=== PATIENT | male | born 1960 | race Caucasian/White ===

== ENCOUNTER 2023-04-08 12:02 | Outpatient (CLI) | payer OTHER, SELFPAY ==
--- NOTE | 2023-04-08 12:06 | USCV_ITS ---
Luigi Benz Age: 63 Gender: M : 1960 Exam Date: 04/08/2023 12:15 Ordering Phys: Uday Llamas Technologist: CT Exam Location: [facility] [place]_ Indication: COPD BP: 137 / 85 HR: 62 Rhythm: Sinus Technical Quality: Technically difficult study MEASUREMENTS (Male / Female) Normal Values 2D ECHO LV Chamber Size 5.8 cm RV Chamber Size 4.2 cm LVOT Diameter 2.5 cm LV Ejection Fraction MOD 2C 65.0 % LV Ejection Fraction 2C AL 65.4 % LA Diameter 4.3 cm LA Width 4.1 cm LA Height 5.3 cm RA Width 3.6 cm RA Height 4.2 cm Aorta at Sinotubular Diameter 2.2 cm IVC Diameter 2.0 cm M-MODE Aortic Annulus Diameter 3.0 cm LA Ao Ratio MM 1.6 MV E Point Septal Separation 1.0 cm DOPPLER AV Peak Velocity 187.0 cm/s LVOT Peak Velocity 104.0 cm/s AV Area Cont Eq vti 3.1 cm squared AV Area Cont Eq pk 2.7 cm squared MV Peak Velocity 105.0 cm/s MV E' Velocity 11.0 cm/s TR Peak Velocity 158.0 cm/s TR Peak Gradient 10.0 mmHg PV Peak Velocity 111.0 cm/s FINDINGS Left Ventricle The study is poor in quality. The only view reasonable is the apical view. The ventricle is normal in size and function. Ejection fraction is about 60%. Grade 2 diastolic dysfunction. Right Ventricle Normal right ventricular size and systolic function. Right Atrium The right atrium is normal in size. Left Atrium The left atrium is normal in size. Mitral Valve Structurally normal mitral valve without significant stenosis or prolapse. There is no mitral regurgitation. Aortic Valve Structurally normal aortic valve without significant sclerosis or stenosis. There is no aortic regurgitation. Tricuspid Valve Tricuspid valve not well visualized. Pulmonic Valve Pulmonic valve not well visualized. Pericardium Normal pericardium without effusion. Aorta Normal ascending aorta dimension. IVC The inferior vena cava appears normal. CONCLUSIONS The study is poor in quality. The only view reasonable is the apical view. The ventricle is normal in size and function. Ejection fraction is about 60%. Grade 2 diastolic dysfunction. There are no prior echocardiogram studies to compare. Dr. Trevor Alvarado MD (Electronically Signed) Final Date: 08 April 2023 15:52 S
== END 2023-04-08 12:03 | disposition home or self-care (01) ==
LOC: RAD 12:02
PROVIDERS: Family Provider Family Medicine; PCP Nurse Practitioner Family; Visit Provider Nurse Practitioner Family
DX: I11.0 Hypertensive heart disease with heart failure (principal); I50.9 Heart failure, unspecified; I25.118 Atherosclerotic heart disease of native coronary artery with other forms of angina pectoris
CPT/HCPCS: 93306

== ENCOUNTER 2024-10-08 11:44 | Inpatient (IN) | payer MEDICAID, SELFPAY ==
[2024-10-08] VITALS (92 sets, daily range): BP systolic 77–133; BP diastolic 51–92; PULSE 72–124; RESP 13–16; TEMP 36.3–36.4; O2SAT 93–100; BMI 51.6; BMI 37.0
--- NOTE | 2024-10-08 11:47 | XR_ITS ---
WS: [id number] Exam: XR chest 1V portable [id number] Date/Time of Exam: 10/08/2024 11:54 AM Reason For Exam: Resp fail Comparison 05/17/2014. The heart is enlarged with pulmonary vascular engorgement. Prominent RIGHT basal pleural effusion with compressive atelectasis of the middle and lower lobes of the RIGHT lung. ET tube ends about 6 cm above the pao in good position. An enteric tube extends below the diaphragm but the tip is not visible. Bony structures are intact. Distention of the SVC. XR/XR chest 1V portable [id number] IMPRESSION: 1. Cardiac enlargement and findings that would suggest congestive heart failure with large right-sided pleural effusion. 2. ET tube in satisfactory location. Enteric tube extending below the level of the diaphragm.
--- NOTE | 2024-10-08 11:47 | ECG_ITS ---
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 Measurements Intervals [place] Rate: 109 P: 51 [place]: 116 QRS: 53 QRSD: 123 T: 88 QT: 373 QTc: 504 Interpretive Statements SINUS TACHYCARDIA POSSIBLE RIGHT VENTRICULAR CONDUCTION DELAY [ No previous ECG available for comparison Electronically Signed On 10-09-2024 11:59:37 CDT by Hubert Michaud M.D. [email or web address]
--- NOTE | 2024-10-08 12:04 | PC.PHAR ---
CALLED PHARMACY TO VERIFY MEDS FOR PATIENT SINCE HES INTUBATED
--- NOTE | 2024-10-08 12:04 | W.ED.SOB ---
HPI - SOB/Dyspnea General: Chief Complaint: Shortness of Breath/Dyspnea Stated Complaint: RESP. DISTRESS Time Seen by Provider: 10/08/24 11:47 History of Present Illness: HPI Narrative: 64-year-old male brought to the emergency department by EMS intubated with respiratory failure. Patient called 911 stating that he was having trouble breathing. When EMS arrived on the scene he was unresponsive and they intubated him. His initially O2 saturation was 74% and his respiratory rate was between 30 and 40 breaths/min. He was intubated in the field without complication. Upon arrival in the emergency department the patient was sedated and intubated. No other significant history was able to be obtained. Related Data Home Medications ?Medication ?Instructions ?Recorded ?Confirmed albuterol sulfate 90 mcg/actuation 2 puff inhalation Q6H 10/08/24 10/08/24 aerosol inhaler carvedilol 6.25 mg tablet 6.25 mg PO BIDWM 10/08/24 10/08/24 ipratropium 0.5 mg-albuterol 3 mg 3 ml inhalation QID PRN Shortness 10/08/24 10/08/24 (2.5 mg base)/3 mL nebulization Of Breath soln lisinopril 20 mg tablet 20 mg PO DAILY 10/08/24 10/08/24 mometasone-formoterol HFA 200 2 puff inhalation BID 10/08/24 10/08/24 mcg-5 mcg/actuation aerosol inhaler (Dulera) Review of Systems General: Reports: ROS unobtainable due to endotracheal tube Physical Exam Const: COMMON NORMALS: no acute distress HENMT: COMMON NORMALS: normocephalic HEAD & SCALP: normocephalic Eye: COMMON NORMALS: conjunctivae normal and no scleral icterus CONJUNCTIVA: Yes conjunctivae normal Resp: AUSCULTATION: no crackles, no rales, no rhonchi, no wheezes and breath sounds absent (bases) bilateral Cardio: COMMON NORMALS: regular rhythm, No gallops present (Cardio) and No murmurs present (Cardio) RATE: tachycardic RHYTHM: regular rhythm GI: COMMON NORMALS: Soft to palpation and non-tender PALPATION: Yes Soft to palpation Extremity: GENERAL: Yes edema (+3 to the hip) Skin: COMMON NORMALS: no rashes or lesions noted GENERAL SKIN EXAM: no rashes or lesions noted Course Vital Signs: Vital signs: Vital Signs Temperature 97.6 F 10/08/24 11:46 Pulse Rate 83 10/08/24 16:10 Respiratory Rate 16 10/08/24 13:52 Blood Pressure 89/64 10/08/24 16:10 Pulse Oximetry 98 10/08/24 16:10 Oxygen Delivery Me thod Mechanical Ventil ation 10/08/24 13:40 Fraction of Inspir ed Oxygen 75 10/08/24 13:52 MDM - SOB/Dyspnea Medical Decision Making 64-year-old male presented via EMS. Patient was found unconscious at the scene and was intubated in the field. His initial O2 saturation was in the 70s and his respiratory rate was very rapid. Upon arrival in the emergency department he was intubated and sedated. Patient was tachycardic. Initial EKG was sinus tachycardia without signs of STEMI. Significant peripheral edema with absent lung sounds. Chest x-ray showed an effusion in the right lung. CTA chest did not show pulmonary embolism but did show a large right pleural effusion and a very small left pleural effusion. Of note there was liver cirrhosis noted on CT. 2-hour Trope had a delta of 80. proBNP was 440. ABG demonstrated uncompensated respiratory acidosis. Additional history was gathered from the patient's son. He has a past medical history of coronary artery disease, CHF, and lung disease. Risks and benefits were discussed with the patient's family about admission to the ICU here and they were in agreement with this plan. Dr. Avery excepted the patient for admission with a cardiology consult. Dr. Michaud was also willing to consult on this patient for cardiology. He received a total of 80 mg of Lasix here in the emergency department as well as sedation medication in order to keep him comfortable while intubated. Differential Diagnosis Likely acute exacerbation of chronic obstructive airways disease, congestive heart failure, community acquired pneumonia, asthma with exacerbation and pulmonary embolism Lab Data 10/08/24 11:57 10/08/24 13:10 Labs/Radiology: Radiology Impressions Chest X-Ray 10/08/24 11:47 IMPRESSION: 1. Cardiac enlargement and findings that would suggest congestive heart failure with large right-sided pleural effusion. 2. ET tube in satisfactory location. Enteric tube extending below the level of the diaphragm. Chest/Abdomen/Pelvis CT 10/08/24 13:57 IMPRESSION: 1. No pulmonary embolism. 2. Large RIGHT pleural effusion with compressive atelectasis of the RIGHT lung. 3. LEFT basilar atelectasis with a very small effusion. 4. Cirrhotic liver. 5. Portosystemic collateral pathways are dilated. 6. Small amount of ascites. 7. No renal obstruction. 8. No GI tract obstruction. 9. Large amount of subcutaneous edema. Laboratory Results WBC 8.05 10^3/uL (3.29-11.43) 10/08/24 11:57 RBC 3.64 10^6/uL (3.85-5.65) L 10/08/24 11:57 Hgb 12.20 g/dL (11.27-16.99) 10/08/24 11:57 Hct 39.0 % (37-53) 10/08/24 11:57 MCV 107.1 fl (82-101) H 10/08/24 11:57 MCH 33.5 pg (27-33) H 10/08/24 11:57 MCHC 31.3 g/dL (30-55) 10/08/24 11:57 RDW 14.0 % (12.1-15.1) 10/08/24 11:57 Plt Count 247 10^3/cmm (157-399) 10/08/24 11:57 MPV 10.2 fL (7.4-10.4) 10/08/24 11:57 Neut % (Auto) 66.2 % 10/08/24 11:57 Lymph % (Auto) 24.2 % 10/08/24 11:57 [place] % (Auto) 8.1 % 10/08/24 11:57 Eos % (Auto) 0.2 % 10/08/24 11:57 Baso % (Auto) 0.4 % 10/08/24 11:57 Neut # (Auto) 5.33 10^3/uL (1.8-7.7) 10/08/24 11:57 Lymph # (Auto) 2.0 10^3/uL (0.8-4.8) 10/08/24 11:57 [place] # (Auto) 0.7 10^3/uL (0.2-0.9) 10/08/24 11:57 Eos # (Auto) 0.0 10^3/uL (0.0-0.8) 10/08/24 11:57 Baso # (Auto) 0.0 10^3/uL (0.0-0.1) 10/08/24 11:57 Nucleated RBC % (auto) 0 % 10/08/24 11:57 Nucleated RBCs # 0.0 /100WBC 10/08/24 11:57 Specimen Type Arterial 10/08/24 13:25 Sample Site Brachial, right 10/08/24 13:25 ABG pH 7.41 (7.35-7.45) 10/08/24 13:25 ABG pCO2 51.0 mmHg (35-45) H 10/08/24 13:25 ABG pO2 73.3 mmHg (80.0-100.0) L 10/08/24 13:25 ABG PO2/FiO2 Ratio 104 10/08/24 13:25 ABG HCO3 32.4 mmol/L (22-26) H 10/08/24 13:25 ABG O2 Saturation 96.6 10/08/24 13:25 ABG Base Excess 6.6 mmol/L (-2.0-2.0) H 10/08/24 13:25 Nikko Test N/a 10/08/24 13:25 A-a O2 Gradient 46.4 mmHg (5-10) H 10/08/24 13:25 Hematocrit 37.1 % (42-52) L 10/08/24 13:25 Hgb O2 Saturation 94.7 % (95-100) L 10/08/24 13:25 Carboxyhemoglobin 1.4 %THgb (0.4-20.1) 10/08/24 13:25 Methemoglobin 0.5 % (0.4-1.5) 10/08/24 13:25 Total Hemoglobin 12.1 g/dL (14-18) L 10/08/24 13:25 Sodium 139.0 mmol/L (131-143) 10/08/24 13:25 Potassium 3.8 mmol/L (3.5-5.0) 10/08/24 13:25 Glucose 132.0 mg/dL (70-115) H 10/08/24 13:25 Ionized Calcium 1.3 mmol/L (1.1-1.4) 10/08/24 13:25 O2 Delivery Device Vent 10/08/24 13:25 FiO2 70.0 % 10/08/24 13:25 Tidal Volume 0.50 10/08/24 13:25 PEEP 5.0 cmH20 10/08/24 13:25 Propellant Charge Loader ID Dora 10/08/24 13:25 Sodium 137 mmol/L (136-145) 10/08/24 13:10 Potassium 4.4 mmol/L (3.5-5.1) 10/08/24 13:10 Chloride 102 mmol/L (98-107) 10/08/24 13:10 Carbon Dioxide 31 mmol/L (22-29) H 10/08/24 13:10 Anion Gap 8.4 (5-19) 10/08/24 13:10 BUN 10 mg/dL (8-23) 10/08/24 13:10 Creatinine 0.4 mg/dL (0.7-1.2) L 10/08/24 13:10 GFR Calculation 216.6 mL/min (90-130) H 10/08/24 13:10 Glucose 141 mg/dL (65-115) H 10/08/24 13:10 Calculated Osmolality 285 mOsm/kg (285-295) 10/08/24 13:10 Lactic Acid 1.7 mmol/L (0.5-2.2) 10/08/24 11:57 Calcium 9.1 mg/dL (8.5-10.5) 10/08/24 13:10 Total Bilirubin 1.8 mg/dL (0.15-1.2) H 10/08/24 13:10 AST 47 U/L (0-40) H 10/08/24 13:10 ALT 30 U/L (0-41) 10/08/24 13:10 Alkaline Phosphatase 93 U/L (40-130) 10/08/24 13:10 Troponin T Baseline 36 ng/L (0-15) H 10/08/24 11:57 Troponin T 120 Minute 116.6 ng/L (0-15) H 10/08/24 13:26 Delta Troponin T 80.6 ABS# (0-10) H* 10/08/24 13:26 NT-Pro-B Natriuret Pep 440 pg/mL (0-125) H 10/08/24 13:10 Total Protein 6.9 g/dL (6.6-8.7) 10/08/24 13:10 Albumin 2.9 g/dL (3.5-5.2) L 10/08/24 13:10 Globulin 4.0 g/dL (1.3-4.6) 10/08/24 13:10 Urine Color Yellow (Yellow) 10/08/24 12:05 Urine Appearance Cloudy (CLEAR) A 10/08/24 12:05 Urine pH 5.5 (5-7) 10/08/24 12:05 Ur Specific [place] 1.022 (1.005-1.030) 10/08/24 12:05 Urine Protein 3+ (Negative) A 10/08/24 12:05 Urine Glucose (UA) Trace (Normal) H 10/08/24 12:05 Urine Ketones Negative (Negative) 10/08/24 12:05 Urine Blood 2+ (Negative) A 10/08/24 12:05 Urine Nitrate Negative (Negative) 10/08/24 12:05 Urine Bilirubin Negative (Negative) 10/08/24 12:05 Urine Urobilinogen 1.0 mg/dL (Negative) 10/08/24 12:05 Ur Leukocyte Esterase Negative (Negative) 10/08/24 12:05 Urine RBC 11-20 /hpf (0-2) H 10/08/24 12:05 Urine WBC 11-20 /hpf (0-5) H 10/08/24 12:05 Ur Squamous Epith Cells 6-10 /hpf (0-5) 10/08/24 12:05 Amorphous Sediment Not Reportable 10/08/24 12:05 Urine Bacteria 1+ /hpf (NONE) H 10/08/24 12:05 Hyaline Casts 34.33 /lpf 10/08/24 12:05 Fine Granular Casts 0-4 /lpf H 10/08/24 12:05 Coarse Granular Casts 5-10 /lpf H 10/08/24 12:05 All radiology interpretation(s) finalized by discharge Critical Care Time Critical Care Time: Critical Care Time: Yes Total Critical Care Time: 15 Attestation: This case had a high probability of a clinically significant, sudden, or life threatening deterioration of this patient's condition which required my full and direct attention, intervention and personal management. Discharge Plan Discharge Patient Disposition: Admitted As Inpatient Clinical Impression: Hyperbilirubinemia, Acute non-ST elevation myocardial infarction (NSTEMI) Respiratory failure with hypoxia Qualifiers: Chronicity: acute on chronic Qualified Code(s): J96.21 - Acute and chronic respiratory failure with hypoxia Congestive heart failure Qualifiers: Heart failure type: unspecified Heart failure chronicity: acute on chronic Qualified Code(s): I50.9 - Heart failure, unspecified Cirrhosis of liver Qualifiers: Hepatic cirrhosis type: unspecified hepatic cirrhosis Ascites presence: without ascites Qualified Code(s): K74.60 - Unspecified cirrhosis of liver Condition: Stable Coding Level of Care Code ED Hemodialysis Technician for Barbie Fox
[2024-10-08] MEDS: propofol 1,000 MG/100 ML INJ 29.39 MG IV (12:08)
[2024-10-08 12:16] LABS: Arterial Blood Gas Hematocrit 38.8 % (42-52); Base Excess ABG 3.8 mmol/L (-2.0-2.0); Blood Gas Operator Identificat BROMA; Blood Gas Sample Site Brachial, left; Blood Gas Sample Type Arterial; Carboxyhemoglobin 1.1 %THgb (0.4-20.1); HCO3 ABG 32.1 mmol/L (22-26); HGB O2 Sat 97.9 % (95-100); Methemoglobin 0.5 % (0.4-1.5); Oxygen Device VENT; PO2 FiO2 Ratio Arterial Blood 197; Total Hemoglobin 12.7 g/dL (14-18)
[2024-10-08 12:17] LABS: Bilirubin Urine Negative (Negative); Blood Urine 2+ (Negative); Glucose Urine UA Trace (Normal); Ketones Urine Negative (Negative); Leukocyte Esterase Urine Negative (Negative); Nitrate Urine Negative (Negative); Protein Urine 3+ (Negative); Specific Gravity, Urine 1.022 (1.005-1.030); Urine Appearance Cloudy (CLEAR); Urine Color Yellow (Yellow); pH Urine 5.5 (5-7)
[2024-10-08 12:19] LABS: ABG PCO2 65.7 mmHg (35-45)
[2024-10-08 12:22] LABS: Add Urine Microscopic? YES; Hyaline Casts Urine 34.33 /lpf
[2024-10-08 12:26] LABS: Basophils % 0.4 %; Eosinophils % 0.2 %; Lymphocytes % 24.2 %; Mean Corpuscular HGB Conc 31.3 g/dL (30-55); Mean Corpuscular Hemoglobin 33.5 pg (27-33); Mean Corpuscular Volume 107.1 fl (82-101); Mean Platelet Volume 10.2 fL (7.4-10.4); Monocytes # 0.7 10^3/uL (0.2-0.9); Monocytes % 8.1 %; Neutrophils # 5.33 10^3/uL (1.8-7.7); Neutrophils % 66.2 %; Nucleated Red Blood Cells % 0 %; Platelet Count 247 10^3/cmm (157-399); Red Blood Count 3.64 10^6/uL (3.85-5.65); White Blood Count 8.05 10^3/uL (3.29-11.43)
[2024-10-08 12:35] LABS: Bacteria Urine 1+ /hpf; Fine Granular Casts Urine 0-4 /lpf; UA Slide Review UA Slide Review Perf
[2024-10-08 12:36] LABS: Add Urine Culture? Yes
[2024-10-08 12:50] LABS: Lactic Sepsis W/Reflex 1.7 mmol/L (0.5-2.2)
[2024-10-08 12:55] LABS: Troponin(5th) Baseline 36 ng/L (0-15)
[2024-10-08 13:39] LABS: ABG PH Result 7.41 (7.35-7.45); Alveolar-Arterial Oxygen Gradi 46.4 mmHg (5-10); Arterial Blood Gas Hematocrit 37.1 % (42-52); Base Excess ABG 6.6 mmol/L (-2.0-2.0); Blood Gas Operator Identificat BROMA; Blood Gas Sample Site Brachial, right; Blood Gas Sample Type Arterial; Carboxyhemoglobin 1.4 %THgb (0.4-20.1); HCO3 ABG 32.4 mmol/L (22-26); HGB O2 Sat 94.7 % (95-100); Ionized Calcium Level - ABG 1.3 mmol/L (1.1-1.4); Methemoglobin 0.5 % (0.4-1.5); Oxygen Device VENT; Oxygen Saturation ABG 96.6; PO2 ABG 73.3 mmHg (80.0-100.0); PO2 FiO2 Ratio Arterial Blood 104; Potassium Level - ABG 3.8 mmol/L (3.5-5.0); Total Hemoglobin 12.1 g/dL (14-18)
[2024-10-08] MEDS: FUROsemide 10 mg/mL SDV 4mL 40 MG IVP ×2 (13:40→16:20)
--- NOTE | 2024-10-08 13:50 | ECG_ITS ---
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 Measurements Intervals [place] Rate: 91 P: 64 IN: 151 QRS: 72 QRSD: 118 T: 62 QT: 386 QTc: 477 Interpretive Statements SINUS RHYTHM WITH SINUS ARRHYTHMIA RIGHT VENTRICULAR CONDUCTION DELAY Compared to ECG 10/08/2024 11:57:02 Sinus tachycardia no longer present Electronically Signed On 10-09-2024 13:06:17 CDT by Hubert Michaud M.D. [email or web address]
[2024-10-08 13:52] LABS: Alanine Aminotransferase 30 U/L (0-41); Albumin Level 2.9 g/dL (3.5-5.2); Alkaline Phosphatase 93 U/L (40-130); Anion Gap 8.4 (5-19); Aspartate Amino Transferase 47 U/L (0-40); Blood Urea Nitrogen 10 mg/dL (8-23); Calcium 9.1 mg/dL (8.5-10.5); Carbon Dioxide 31 mmol/L (22-29); Chloride 102 mmol/L (98-107); Creatinine Clr Calc Pharmacy 287.9482; Glomerular Filtration Rate 216.6 mL/min (90-130); Glucose 141 mg/dL (65-115); NT Pro B Type Natriuretic Pept 440 pg/mL (0-125); Osmolality Calculated 285 mOsm/kg (285-295); Potassium 4.4 mmol/L (3.5-5.1); Sodium 137 mmol/L (136-145); Total Bilirubin 1.8 mg/dL (0.15-1.2); Total Protein 6.9 g/dL (6.6-8.7)
[2024-10-08 13:53] LABS: Troponin 5 2HR 116.6 ng/L (0-15)
[2024-10-08 13:54] LABS: Troponin 5 2HR Delta 80.6 ABS# (0-10)
--- NOTE | 2024-10-08 13:57 | CT_ITS ---
WS: [id number] CTA CHEST WITH CT ABDOMEN AND PELVIS. HISTORY: Respiratory failure. Patient is ventilated. TECHNIQUE: CT angiogram is performed through the chest. Additional imaging is performed through the abdomen and pelvis with IV contrast. Sagittal and coronal reformats have been submitted. MIP imaging also reviewed. All CT scans at [facility] use at least one of these dose optimization techniques: automated exposure control; mA and/or kV adjustment per patient size (includes targeted exams where dose is matched to clinical indication); or iterative reconstruction. Contrast: Omnipaque 350; 95 cc IV. DLP: 1682.23 mGy.cm COMPARISON: None. Chest CTA: Good opacification of the pulmonary arteries. Main pulmonary artery is normal size. Lobar branches send segmental branches are normal. Beyond the segmental branches the opacification becomes limited. Normal size aorta. Mild atherosclerotic plaque. LEFT heart enlargement. No RIGHT heart strain. Large RIGHT pleural effusion. Compressive atelectasis of the RIGHT lung. Only a small portion of the RIGHT lung is aerated. Subsegmental atelectasis at the LEFT lung base. There is a tiny LEFT pleural effusion. Nasogastric tube and endotracheal tubes are appropriately positioned. Small mediastinal and hilar lymph nodes. Diffuse soft tissue anasarca in the dependent portions of the chest. Slightly greater fluid along the RIGHT chest wall may be dependent fluid. Abdomen CT: Liver is cirrhotic. Small caliber portal vein. Portal veins are not well visualized. Gallbladder is present and contains stones. No pericholecystic fluid. No bile duct dilatation. Normal spleen. Normal pancreas. No adrenal mass. No renal obstruction. Moderate atherosclerosis aorta. Small amount of ascites adjacent to the liver and spleen. Splenic varicosities. Renal veins are prominent. Portosystemic collateral pathways are noted within the peritoneal cavity. Greatest shunting between the spleen and LEFT renal vein. Large varicosities extend along the LEFT psoas muscle to the pelvis. No GI tract obstruction. No colitis or ischemia. Pelvic CT: Vuong catheter in place. Urinary bladder is mildly distended. There is free fluid in the pelvis. Diffuse soft tissue anasarca. CT/CT angio chest w abd pel w con IMPRESSION: 1. No pulmonary embolism. 2. Large RIGHT pleural effusion with compressive atelectasis of the RIGHT lung . 3. LEFT basilar atelectasis with a very small effusion. 4. Cirrhotic liver. 5. Portosystemic collateral pathways are dilated. 6. Small amount of ascites. 7. No renal obstruction. 8. No GI tract obstruction. 9. Large amount of subcutaneous edema.
[2024-10-08] MEDS: iohexol 350 mg/mL 500 mL Btl (per mL) IV (14:52)
[2024-10-08] MEDS: fentaNYL 1,000 MCG/100 ML BAG 5 MCG IV (14:59)
[2024-10-08] MEDS: heparin 5,000 unit/mL INJ 1 mL IVP (15:08)
[2024-10-08] MEDS: heparin drip 25,000 UNIT/500 ML PREMIX 34 UNIT IV (15:13)
--- NOTE | 2024-10-08 15:15 | PC.NURSE ---
HEPARIN DOSING BASED OFF OF NEW WEIGHT OF 261LB. PRIOR WEIGHT OF PT INCORRECT.
--- NOTE | 2024-10-08 15:41 | USCV_ITS ---
Luigi Benz Age: 64 Gender: M : 1960 Exam Date: 10/08/2024 18:14 Ordering Phys: Bernadette Alonso MD Technologist: Harpreet Jackman Exam Location: [facility] [place] Indication: nstemi BP: 106 / 71 HR: 81 Rhythm: Sinus Technical Quality: Adequate MEASUREMENTS (Male / Female) Normal Values 2D ECHO LV Diastolic Diameter PLAX 4.6 cm 4.2 - 5.9 / 3.9 - 5.3 cm IVS Diastolic Thickness 1.3 cm 0.6 - 1.0 / 0.6 - 0.9 cm IVS Systolic Thickness 1.5 cm LVPW Diastolic Thickness 1.5 cm 0.6 - 1.0 / 0.6 - 0.9 cm LVPW Systolic Thickness 2.3 cm LVOT Diameter 2.0 cm LV Ejection Fraction 2D Teich 46.9 % LV Ejection Fraction MOD 4C 42.8 % LV Ejection Fraction MOD 2C 26.8 % LV Ejection Fraction 2C AL 27.8 % LA Diameter 3.7 cm RA Systolic Volume 4C AL 31.0 ml RA Systolic Volume 4C MOD 31.0 ml LA Sys Volume AL 35.5 cm cubed LA Sys Volume Index AL 14.4 cm cubed/m squared Aorta at Sinotubular Diameter 2.1 cm IVC Diameter 2.5 cm M-MODE LA Ao Ratio MM 1.5 AV Cusp Separation MM 2.0 cm DOPPLER AV Peak Velocity 114.0 cm/s LVOT Peak Velocity 91.0 cm/s AV Area Cont Eq vti 2.9 cm squared AV Area Cont Eq pk 2.5 cm squared MV Peak Velocity 86.0 cm/s MV Area PHT 5.2 cm squared Mitral E to A Ratio 0.9 TV Peak Velocity 223.0 cm/s TR Peak Velocity 285.0 cm/s TR Peak Gradient 32.5 mmHg TR Mean Velocity 258.0 cm/s TR Mean Gradient 27.1 mmHg TR Velocity Time Integral 97.5 cm PV Peak Velocity 79.0 cm/s RV Ejection Time 0.2 s FINDINGS Left Ventricle Severe LV systolic dysfunction. Severe hypokinesis of anterior, anteroseptal apical and anterolateral wall segments. Only inferior wall segments have decent movement and thickening. LVEF overall severely reduced. Estimated LVEF around 30%. Right Ventricle Normal right ventricular size and systolic function. Right Atrium Normal right atrial size. Left Atrium Mildly increased left atrial size. Mitral Valve Mildly thickened mitral valve. Mild MAC. Trace mitral regurgitation Aortic Valve Mildly thickened aortic valve. Tricuspid Valve Structurally normal tricuspid valve. Mild tricuspid valve regurgitation. Pulmonic Valve Pulmonic valve not well visualized. Trace pulmonary valve regurgitation. Pericardium No pericardial effusion. Aorta Normal size aortic root and proximal ascending aorta. IVC Normal inferior vena cava. CONCLUSIONS Severely reduced LV systolic function. Estimated LVEF severely reduced at 30%. Severe hypokinesis of mid-distal anterior, apical, anterolateral wall segments. RA and RV normal size and with normal systolic function. Mild mitral regurgitation. Normal RV and pulmonary pressures. Compared to previous echo report from 03/2023, there has been significant change with reduction of LV systolic function Hubert Michaud MD (Electronically Signed) Final Date: 08 Oct 2024 19:21 S
--- NOTE | 2024-10-08 15:41 | P.HP_ITS ---
Providers/Chief Complaint 2 Admitting Physician: Bernadette Alonso MD Primary Care Provider: FELICIA Rasheed Chief Complaint: RESP. DISTRESS History of Present Illness Luigi Benz is a 64 year old male who was brought to the emergency room today via EMS after being intubated in the field. Per history available from ER physician, patient today called EMS reporting increasing shortness of breath. When EMS arrived patient was noted to be saturating 74% and respiratory rate was about 40/min. He was intubated due to respiratory distress. He is currently on sedation with fentanyl and propofol. ABG was initially showing a pH of 7.3, PCO2 of 65.7, PO2 of 138 and a bicarb of 32, this is currently improved to a pCO2 of 51 at 1:[address] of the chest abdomen and pelvis was completed which did not show any acute abnormalities. There is no PE. Large right pleural effusion is noted with compressive atelectasis of the right lung, of unknown chronicity. Liver was noted to be cirrhotic. There was a small amount of ascites. Patient also has generalized anasarca and elevated troponins. Clinical picture concerning for NSTEMI and CHF. Review of Systems 2 General: Reports: 10 or more systems reviewed and unremarkable except in HPI and below Const: Denies: fever(s), chills or body aches Eyes: Denies: change in vision, blurry vision or photophobia ENMT: Reports: hoarseness; Denies: throat pain, enlarged tonsils, odynophagia or nasal congestion Card: Denies: chest pain, palpitations, irregular heart rhythm, edema, swelling of feet/ankles, lightheadedness, pre-syncope, dyspnea on exertion or orthopnea Resp: Denies: dyspnea, productive cough, non-productive cough, wheezing, stridor, pain on inspiration, change in phlegm color, hemoptysis or chest congestion GI: Denies: abdominal pain, nausea, vomiting, hematemesis, coffee ground emesis, dysphagia, heartburn, diarrhea, constipation, GI cramping, change in stool character, hematochezia or melena : Denies: flank pain, dysuria, urinary frequency, urinary urgency, urinary hesitancy or hematuria Musc: Denies: neck pain, back pain, extremity pain, joint swelling, joint warmth or deformity Neuro: Denies: headache(s), numbness in extremities, weakness in extremities, sensory changes, difficulty walking, frequent falls, dizziness, vertigo, behavioral changes, Slurred speech present or seizure-like activity Psych: Denies: anxiety, depression, suicidal ideation or homicidal ideation Endo: Denies: polyuria, polydipsia, tired all the time, cold intolerance or hot flashes Vasiliy/Lymph: Denies: easy bruising or easy bleeding Medications/Allergies Home Medications ?Medication ?Instructions ?Recorded ?Confirmed ?Last Taken ?Type albuterol sulfate 90 mcg/actuation 2 puff inhalation Q 6H 10/08/24 10/08/24 Unknown History aerosol inhaler carvedilol 6.25 mg tablet 6.25 mg PO BIDWM 10/08/24 Unknown History ipratropium 0.5 mg-albuterol 3 mg 3 ml inhalation QID PRN Shortness 10/08/24 10/08/24 Unknown History (2.5 mg base)/3 mL nebulization Of Breath soln lisinopril 20 mg tablet 20 mg PO DAILY 10/08/2409/23 Unknown History mometasone-formoterol HFA 200 2 puff inhalation BID 10/08/24 Unknown History mcg-5 mcg/actuation aerosol inhaler (Dulera) Vitals/I&O/Wt Last Vital Signs Temp 97.6 F 10/08/24 11:46 Pulse 95 10/08/24 15:00 Resp 16 10/08/24 13:52 BP 110/82 10/08/24 15:00 Pulse Ox 98 10/08/24 15:00 O2 Del Method Mechanical Ventilation 10/08/24 13:40 FiO2 75 10/08/24 13:52 10/08/24 10/08/24 10/08/24 06:59 14:59 22:59 Intake Total 40.330 / 40.330 Balance 40.330 / 40.330 Weight last 48 hrs Weight 118.614 kg Weight 163.293 kg Physical Exam 2 Narrative: General: intubated , sedated HEENT: PERRLA, pupils bilaterally equal and reactive, pallors not present Chest: diminished breath sounds right lung CVS: S1-S2 regular, no murmurs, no tachycardia, no gallops, no rubs Abdomen: Soft, nontender, no organomegaly, bowel sounds present Neuro: intubated , seadted Ext: anasarca+ Urinary Catheter Management: Vuong: Cath Placed During This Visit: yes Urinary Catheter Date of Insertion: 10/08/24 Urinary Catheter Time of Insertion: 12:07 Data 10/08/24 11:57 10/08/24 13:10 Micro: Microbiology 10/08/24 11:57 Blood Culture - Preliminary Blood SPECIMEN COLLECTED 10/08/24 12:09 Blood Culture - Preliminary Blood SPECIMEN COLLECTED Other data: Radiology Impressions Chest X-Ray 10/08/24 11:47 IMPRESSION: 1. Cardiac enlargement and findings that would suggest congestive heart failure with large right-sided pleural effusion. 2. ET tube in satisfactory location. Enteric tube extending below the level of the diaphragm. Chest/Abdomen/Pelvis CT 10/08/24 13:57 IMPRESSION: 1. No pulmonary embolism. 2. Large RIGHT pleural effusion with compressive atelectasis of the RIGHT lung. 3. LEFT basilar atelectasis with a very small effusion. 4. Cirrhotic liver. 5. Portosystemic collateral pathways are dilated. 6. Small amount of ascites. 7. No renal obstruction. 8. No GI tract obstruction. 9. Large amount of subcutaneous edema. Laboratory Results WBC 8.05 10^3/uL (3.29-11.43) 10/08/24 11:57 RBC 3.64 10^6/uL (3.85-5.65) L 10/08/24 11:57 Hgb 12.20 g/dL (11.27-16.99) 10/08/24 11:57 Hct 39.0 % (37-53) 10/08/24 11:57 MCV 107.1 fl (82-101) H 10/08/24 11:57 MCH 33.5 pg (27-33) H 10/08/24 11:57 MCHC 31.3 g/dL (30-55) 10/08/24 11:57 RDW 14.0 % (12.1-15.1) 10/08/24 11:57 Plt Count 247 10^3/cmm (157-399) 10/08/24 11:57 MPV 10.2 fL (7.4-10.4) 10/08/24 11:57 Neut % (Auto) 66.2 % 10/08/24 11:57 Lymph % (Auto) 24.2 % 10/08/24 11:57 Sabine % (Auto) 8.1 % 10/08/24 11:57 Eos % (Auto) 0.2 % 10/08/24 11:57 Baso % (Auto) 0.4 % 10/08/24 11:57 Neut # (Auto) 5.33 10^3/uL (1.8-7.7) 10/08/24 11:57 Lymph # (Auto) 2.0 10^3/uL (0.8-4.8) 10/08/24 11:57 Sabine # (Auto) 0.7 10^3/uL (0.2-0.9) 10/08/24 11:57 Eos # (Auto) 0.0 10^3/uL (0.0-0.8) 10/08/24 11:57 Baso # (Auto) 0.0 10^3/uL (0.0-0.1) 10/08/24 11:57 Nucleated RBC % (auto) 0 % 10/08/24 11:57 Nucleated RBCs # 0.0 /100WBC 10/08/24 11:57 Specimen Type Arterial 10/08/24 13:25 Sample Site Brachial, right 10/08/24 13:25 ABG pH 7.41 (7.35-7.45) 10/08/24 13:25 ABG pCO2 51.0 mmHg (35-45) H 10/08/24 13:25 ABG pO2 73.3 mmHg (80.0-100.0) L 10/08/24 13:25 ABG PO2/FiO2 Ratio 104 10/08/24 13:25 ABG HCO3 32.4 mmol/L (22-26) H 10/08/24 13:25 ABG O2 Saturation 96.6 10/08/24 13:25 ABG Base Excess 6.6 mmol/L (-2.0-2.0) H 10/08/24 13:25 Nikko Test N/a 10/08/24 13:25 A-a O2 Gradient 46.4 mmHg (5-10) H 10/08/24 13:25 Hematocrit 37.1 % (42-52) L 10/08/24 13:25 Hgb O2 Saturation 94.7 % (95-100) L 10/08/24 13:25 Carboxyhemoglobin 1.4 %THgb (0.4-20.1) 10/08/24 13:25 Methemoglobin 0.5 % (0.4-1.5) 10/08/24 13:25 Total Hemoglobin 12.1 g/dL (14-18) L 10/08/24 13:25 Sodium 139.0 mmol/L (131-143) 10/08/24 13:25 Potassium 3.8 mmol/L (3.5-5.0) 10/08/24 13:25 Glucose 132.0 mg/dL (70-115) H 10/08/24 13:25 Ionized Calcium 1.3 mmol/L (1.1-1.4) 10/08/24 13:25 O2 Delivery Device Vent 10/08/24 13:25 FiO2 70.0 % 10/08/24 13:25 Tidal Volume 0.50 10/08/24 13:25 PEEP 5.0 cmH20 10/08/24 13:25 Stenciling Machine Tender ID Broma 10/08/24 13:25 Sodium 137 mmol/L (136-145) 10/08/24 13:10 Potassium 4.4 mmol/L (3.5-5.1) 10/08/24 13:10 Chloride 102 mmol/L (98-107) 10/08/24 13:10 Carbon Dioxide 31 mmol/L (22-29) H 10/08/24 13:10 Anion Gap 8.4 (5-19) 10/08/24 13:10 BUN 10 mg/dL (8-23) 10/08/24 13:10 Creatinine 0.4 mg/dL (0.7-1.2) L 10/08/24 13:10 GFR Calculation 216.6 mL/min (90-130) H 10/08/24 13:10 Glucose 141 mg/dL (65-115) H 10/08/24 13:10 Calculated Osmolality 285 mOsm/kg (285-295) 10/08/24 13:10 Lactic Acid 1.7 mmol/L (0.5-2.2) 10/08/24 11:57 Calcium 9.1 mg/dL (8.5-10.5) 10/08/24 13:10 Total Bilirubin 1.8 mg/dL (0.15-1.2) H 10/08/24 13:10 AST 47 U/L (0-40) H 10/08/24 13:10 ALT 30 U/L (0-41) 10/08/24 13:10 Alkaline Phosphatase 93 U/L (40-130) 10/08/24 13:10 Troponin T Baseline 36 ng/L (0-15) H 10/08/24 11:57 Troponin T 120 Minute 116.6 ng/L (0-15) H 10/08/24 13:26 Delta Troponin T 80.6 ABS# (0-10) H* 10/08/24 13:26 NT-Pro-B Natriuret Pep 440 pg/mL (0-125) H 10/08/24 13:10 Total Protein 6.9 g/dL (6.6-8.7) 10/08/24 13:10 Albumin 2.9 g/dL (3.5-5.2) L 10/08/24 13:10 Globulin 4.0 g/dL (1.3-4.6) 10/08/24 13:10 Urine Color Yellow (Yellow) 10/08/24 12:05 Urine Appearance Cloudy (CLEAR) A 10/08/24 12:05 Urine pH 5.5 (5-7) 10/08/24 12:05 Ur Specific [place] 1.022 (1.005-1.030) 10/08/24 12:05 Urine Protein 3+ (Negative) A 10/08/24 12:05 Urine Glucose (UA) Trace (Normal) H 10/08/24 12:05 Urine Ketones Negative (Negative) 10/08/24 12:05 Urine Blood 2+ (Negative) A 10/08/24 12:05 Urine Nitrate Negative (Negative) 10/08/24 12:05 Urine Bilirubin Negative (Negative) 10/08/24 12:05 Urine Urobilinogen 1.0 mg/dL (Negative) 10/08/24 12:05 Ur Leukocyte Esterase Negative (Negative) 10/08/24 12:05 Urine RBC 11-20 /hpf (0-2) H 10/08/24 12:05 Urine WBC 11-20 /hpf (0-5) H 10/08/24 12:05 Ur Squamous Epith Cells 6-10 /hpf (0-5) 10/08/24 12:05 Amorphous Sediment Not Reportable 10/08/24 12:05 Urine Bacteria 1+ /hpf (NONE) H 10/08/24 12:05 Hyaline Casts 34.33 /lpf 10/08/24 12:05 Fine Granular Casts 0-4 /lpf H 10/08/24 12:05 Coarse Granular Casts 5-10 /lpf H 10/08/24 12:05 A&P Assessment and plan (1) Acute non-ST elevation myocardial infarction (NSTEMI): Patient brought via EMS today intubated and sedated due to reported respiratory distress in the field. He did not receive any chest compressions. Baseline troponin at 36, trending up to 116 on arrival with a delta of 80.6 at 2 hours. 6-hour trend is currently pending. CTA of the chest has ruled out a PE. Clinical picture concerning for NSTEMI. EKG does not show any signs of ST elevation. Started on heparin drip in the emergency room Place OG tube and administered 325 mg start aspirin Atorvastatin 40 mg p.o. daily HbA1c and lipid panel for restratification Patient is already on carvedilol 6.25 mg p.o. twice daily which we will continue. Hold lisinopril for now. Echocardiogram ordered and pending Per review of prior echocardiogram from 2022 patient had an EF of 60% with grade 2 diastolic dysfunction. cardiology consult (2) Congestive heart failure: Acute on chronic CHF exacerbation likely to be the cause of right pleural effusion and anasarca. From 2022 he was noted to have at least a grade 2 diastolic dysfunction Echocardiogram has been currently ordered to assess for new regional wall motion abnormalities, ejection fraction and any worsening in the heart failure. Lasix 40 mg IV every 12 hours, thus far he has received a single dose of Lasix 40 mg in the emergency room Urine output 1600 cc. Vuong catheter to enable strict input and output charting. (3) Cirrhosis of liver: (4) Respiratory failure with hypoxia: (5) Pleural effusion: Large right pleural effusion, unclear cause and chronicity. Lasix 40 mg IV to every 12 hours currently Patient is afebrile, no leukocytosis May be a transudative effusion related to CHF Will aim to perform thoracentesis with IR on Friday once the services are available again (no IR availability over the weekend) Patient is currently intubated for respiratory support Plan DVT prophylaxis: Heparin drip Full code PDMP PDMP Reviewed: Not Reviewed Attestations 2 Medical Necessity Statement*: Greater than 2 midnight admission will be needed in the ICU Critical Care Time: The high probability of a clinically significant, sudden or life threatening deterioration of the patient's [cardiac,resp] system(s) required my full and direct attention, intervention and personal management. The critical care time is as shown. This time is in addition to time spent performing any reported procedures but includes the following: [x] Data and vital sign review and interpretation [x] Patient assessment, examination and intervention [x] Documentation [x] Medication orders and management Critical Care Time (min): 40 Coding Level of Care Code Acute Code for [facility] Fwd Diagnoses Acute non-ST elevation myocardial infarction (NSTEMI) I21.4 Congestive heart failure I50.9 Heart failure chronicity: acute on chronic Heart failure type: unspecified Cirrhosis of liver K74.60 Ascites presence: without ascites Hepatic cirrhosis type: unspecified hepatic cirrhosis Respiratory failure with hypoxia J96.21 Chronicity: acute on chronic Pleural effusion J90
[2024-10-08] MEDS: propofol 1,000 MG/100 ML INJ 19.6 MG IV (16:20)
--- NOTE | 2024-10-08 17:47 | ECG_ITS ---
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 Measurements Intervals [place] Rate: 79 P: 56 VA: 117 QRS: 71 QRSD: 121 T: 59 QT: 410 QTc: 472 Interpretive Statements SINUS RHYTHM POSSIBLE RIGHT VENTRICULAR CONDUCTION DELAY Compared to ECG 10/08/2024 13:50:35 No significant change Electronically Signed On 10-09-2024 12:15:21 CDT by Hubert Michaud M.D. [email or web address]
[2024-10-08] MEDS: aspirin 81 mg Chew Tablet 324 MG NG-TUBE (18:02)
[2024-10-08] MEDS: atorvastatin 40 mg Tablet NG-TUBE (18:02)
--- NOTE | 2024-10-08 18:57 | PM.CONSULT ---
Providers/Reason For Consult Consulting Physician/Specialty*: Hospitalist internal medicine Reason for Consult*: NSTEMI Requesting Physician: Dr. Alonso Attending Physician: Bernadette Alonso MD Primary Care Provider: FELICIA Rasheed History of Present Illness History of Present Illness Luigi Benz is a 64 year old male who was brought to the ER after intubated in the field. As per ER staff as well as patient's family patient was having a shortness of air worsening symptoms for last week or so. There was also question of vague history of chest discomfort. With worsening of his respiratory status, EMS was called and the patient was intubated in the field due to severe hypoxia and tolerating mental status. In the ER the ECG did not show any acute ST changes suggestive of acute LA however his cardiac troponin enzymes are elevated, NSTEMI. Currently patient is intubated and his respiratory status is much improved. Review of Systems Narrative: Limited history as patient is intubated and information is as per chart and his son. As mentioned above the shortness of air has been worsening with swelling of lower extremities. This both symptoms apparently are chronic however there has been a worsening of both of the symptoms in the recent weeks. Medications/Allergies Home Medications ?Medication ?Instructions ?Recorded ?Confirmed ?Last Taken ?Type albuterol sulfate 90 mcg/actuation 2 puff inhalation Q6H 10/08/24 10/08/24 Unknown History aerosol inhaler carvedilol 6.25 mg tablet 6.25 mg PO BIDWM 10/08/24 10/08/24 Unknown History ipratropium 0.5 mg-albuterol 3 mg 3 ml inhalation QID PRN Shortness 10/08/24 10/08/24 Unknown History (2.5 mg base)/3 mL nebulization Of Breath soln lisinopril 20 mg tablet 20 mg PO DAILY 10/08/24 10/08/24 Unknown History mometasone-formoterol HFA 200 2 puff inhalation BID 10/08/24 10/08/24 Unknown History mcg-5 mcg/actuation aerosol inhaler (Dulera) Current Medications Generic Name Dose Route Start Last Admin Trade Name Freq PRN Reason Stop Dose Admin Atorvastatin Calcium 40 mg 10/08/24 18:00 10/08/24 18:02 Atorvastatin 40 Mg Tablet NG-TUBE 40 mg DAILY TANK Administration Carvedilol 6.25 mg 10/08/24 18:00 10/08/24 17:51 Carvedilol 6.25 Mg Tablet PO Not Given BIDWM TANK Propofol 1,000 mg in 100 mls @ 0 mls/hr 10/08/24 12:00 10/08/24 16:20 Diprivan IV 20 mcg/kg/min .Q0M TANK 19.6 mls/hr Protocol Administration Per Protocol Heparin Sodium/Sodium Chloride 25,000 unit in 500 mls @ 0 mls/hr 10/08/24 14:00 10/08/24 15:13 Heparin Drip IV 10.41 unit/kg/hr CONT TANK 34 mls/hr Protocol Administration Per Protocol Fentanyl 1,000 mcg in 100 mls @ 0 mls/hr 10/08/24 14:30 10/08/24 14:59 Sublimaze IV 50 mcg/hr .Q0M TANK 5 mls/hr Protocol Administration Per Protocol Vitals/I&O/Wt Last Vital Signs Temp 97.6 F 10/08/24 11:46 Pulse 79 10/08/24 18:15 Resp 16 10/08/24 16:51 BP 101/70 10/08/24 18:15 Pulse Ox 98 10/08/24 18:15 O2 Del Method Mechanical Ventilation 10/08/24 18:15 FiO2 75 10/08/24 16:51 10/08/24 10/08/24 10/08/24 06:59 14:59 22:59 Intake Total 40.330 / 40.330 51.287 / 91.617 Output Total 1600 / 1600 Balance 40.330 / 40.330 -1548.713 / -1508.383 Weight last 48 hrs Weight 261 lb 8 oz Weight 360 lb Physical Exam Const: OTHER: Patient is intubated. HENMT: OTHER: Patient is intubated and on ventilator. Eye: OTHER: Unremarkable Resp: OTHER: Decreased air entry at the bases bilaterally with bilateral mild Rales at the bases. Cardio: OTHER: Normal 1st and 2nd heart sound. GI: OTHER: Abdomen is distended however however soft bowel sounds audible Extremity: OTHER: Bilateral lower extremities edema with chronic skin changes. Neuro: OTHER: Patient is intubated and on ventilation Skin: OTHER: Skin warm and dry. Urinary Catheter Management: Vuong: Cath Placed During This Visit: yes Reason for Continuing Indwelling Catheter: Accurate Measurement of Urinary Output in Critically Ill Patients Urinary Catheter Date of Insertion: 10/08/24 Urinary Catheter Time of Insertion: 12:00 Data 10/08/24 11:57 10/08/24 13:10 Micro: Microbiology 10/08/24 12:12 Gram Stain - Final Sputum - Endotracheal Tube Aspirate 10/08/24 11:57 Blood Culture - Preliminary Blood SPECIMEN COLLECTED 10/08/24 12:09 Blood Culture - Preliminary Blood SPECIMEN COLLECTED A&P Assessment and plan (1) Acute non-ST elevation myocardial infarction (NSTEMI): 64-year-old male with worsening respiratory status, now intubated. They are worsening respiratory symptoms are likely secondary to combination of heart failure as well as superadded lower respiratory tract infection. Clinically and hemodynamically patient is now stable since being managed in ER. His cardiac troponin is elevated indicative of possible NSTEMI. However the troponin elevation could well be due to primarily hypoxia due to respiratory failure. Recommendation 1. Echocardiogram to assess current LV functional status. 2. To start ACS protocol with dual antiplatelets and IV heparin. and regular IV diuretics. 3. To continue management of possible NSTEMI with the routine dual antiplatelets. 4. Will review the patient once he has echo done. (2) Congestive heart failure: PDMP PDMP Reviewed: Not Reviewed Consult Attestations Medical Necessity Statement: CHF, chronic Hypoxia Coding Level of Care Code 61294 Diagnoses Acute non-ST elevation myocardial infarction (NSTEMI) I21.4 Congestive heart failure I50.9 Heart failure chronicity: acute on chronic Heart failure type: unspecified Time Spent (min) 25
[2024-10-08 19:03] LABS: Troponin 5 6HR 227.4 ng/L (0-15); Troponin 5 6HR Delta 191.4 ng/L (0-12)
[2024-10-08 21:50] LABS: Partial Thromboplastin Time 215.7 SECONDS (23.9-36.7)
--- NOTE | 2024-10-08 21:59 | PC.NURSE ---
Pts APTT was 215.7 shut off heparin and contacted Dr. Vera and order was given to recheck a PTT in 4 hrs.
--- NOTE | 2024-10-08 23:25 | PC.NURSE ---
Right Shoulder Wound Ulcer with undermining noted on patient's posterior right shoulder. Picture sent through secure messaging to Dr. Vera; to visualize wound when available.
[2024-10-09] VITALS (100 sets, daily range): BP systolic 89–171; BP diastolic 45–98; PULSE 62–102; RESP 12–16; TEMP 36.2–37.1; O2SAT 91–100; BMI 36.7
[2024-10-09] MEDS: fentaNYL 1,000 MCG/100 ML BAG 12.5 MCG IV ×2 (00:15→06:28)
[2024-10-09] MEDS: ipratropium-albuterol 3 mL Neb INHALATION ×7 (00:50→23:52)
[2024-10-09] MEDS: propofol 1,000 MG/100 ML INJ 14.7 MG IV (01:06)
[2024-10-09 02:10] LABS: Hematocrit 37.8 % (37-53); Mean Corpuscular Hemoglobin 33.4 pg (27-33); Mean Platelet Volume 10.9 fL (7.4-10.4); Platelet Count 183 10^3/cmm (157-399); Red Cell Distribution Width 14.4 % (12.1-15.1)
[2024-10-09 02:44] LABS: Partial Thromboplastin Time 39.4 SECONDS (23.9-36.7)
[2024-10-09 02:58] LABS: Alanine Aminotransferase 27 U/L (0-41); Albumin Level 2.8 g/dL (3.5-5.2); Alkaline Phosphatase 86 U/L (40-130); Blood Urea Nitrogen 11 mg/dL (8-23); Calcium 8.8 mg/dL (8.5-10.5); Carbon Dioxide 29 mmol/L (22-29); Chloride 99 mmol/L (98-107); Creatinine Clr Calc Pharmacy 239.0833; Globulin 3.4 g/dL (1.3-4.6); Glomerular Filtration Rate 216.6 mL/min (90-130); Glucose 111 mg/dL (65-115); Osmolality Calculated 286 mOsm/kg (285-295); Sodium 138 mmol/L (136-145); Total Bilirubin 1.5 mg/dL (0.15-1.2); Total Protein 6.2 g/dL (6.6-8.7)
[2024-10-09 03:01] LABS: Anion Gap 14.1 (5-19); Potassium 4.1 mmol/L (3.5-5.1)
[2024-10-09 03:02] LABS: Aspartate Amino Transferase 50 U/L (0-40)
[2024-10-09 03:36] LABS: Slide Review Slide Review Perform
[2024-10-09 03:37] LABS: Absolute Neutrophil 6.6 10^3/cmm (1.4-6.5); Absolute Segmented Neutrophil 6.1 10/cmm (1.6-7.1); Band Neutrophils Absolute 0.5 10^3/cmm (0.0-1.2); Eosinophils 0 %; Lymphocytes 16 %; Lymphocytes Absolute 1.4 10^3/cmm (1.2-3.4); Monocytes Absolute 0.1 10^3/cmm (0.1-0.6); Platelet Estimate Normal (Normal); Segmented Neutrophils 69 %; Total Cells Counted 100 (0-100)
--- NOTE | 2024-10-09 03:45 | PC.NURSE ---
Heparin Dr. Vera notified of ptt 39.4. Order received to restart heparin drip at 25 ml/hr.
[2024-10-09] MEDS: FUROsemide 10 mg/mL SDV 4mL 40 MG IVP ×2 (04:13→17:19)
[2024-10-09 05:39] LABS: ABG PH Result 7.37 (7.35-7.45); Arterial Blood Gas Hematocrit 37.9 % (42-52); Base Excess ABG 9.7 mmol/L (-2.0-2.0); Blood Gas Operator Identificat SAM; Blood Gas Sample Site Brachial, right; Blood Gas Sample Type Arterial; HCO3 ABG 37.3 mmol/L (22-26); Oxygen Device VENT; PO2 ABG 71.6 mmHg (80.0-100.0); PO2 FiO2 Ratio Arterial Blood 119
[2024-10-09] MEDS: budesonide 0.5 mg/2 mL Neb INHALATION ×2 (07:50→19:33)
[2024-10-09] MEDS: propofol 1,000 MG/100 ML INJ 19.6 MG IV ×3 (07:59→21:45)
[2024-10-09] MEDS: carvedilol 6.25 mg Tablet PO ×2 (09:11→17:19)
[2024-10-09] MEDS: atorvastatin 40 mg Tablet NG-TUBE (09:11)
--- NOTE | 2024-10-09 10:00 | PC.NURSE ---
Pt's son, Donovan, called unit for an update. Update provdied, questions answered. Family friend Soraya Dove, phone number [phone] at bedside. Pt's son gave verbal consent for Soraya to receive information and updates on his father.
[2024-10-09 10:59] LABS: Partial Thromboplastin Time 121.4 SECONDS (23.9-36.7)
--- NOTE | 2024-10-09 14:00 | P.PN_ITS ---
Subjective 2 Subjective: Patient continues to remain intubated and sedated in the ICU. Vitals/I&O/Wt Last Vital Signs Temp 97.2 F L 10/09/24 04:00 Pulse 97 10/09/24 11:39 Resp 12 10/09/24 13:11 BP 120/74 10/09/24 06:00 Pulse Ox 99 10/09/24 13:11 O2 Del Method Mechanical Ventilation 10/09/24 11:39 FiO2 40 10/09/24 13:11 10/08/24 10/09/24 10/09/24 22:59 06:59 14:59 Intake Total 397.296 / 437.626 258.932 / 696.558 277.917 / 277.917 Output Total 2600 / 2600 1150 / 3750 Balance -2202.704 / -2162.374 -891.068 / -3053.442 277.917 / 277.917 Weight last 48 hrs Weight 116.2 kg Weight 117 kg Weight 118.614 kg Weight 163.293 kg Physical Exam 2 Narrative: General: intubated , sedated HEENT: PERRLA, pupils bilaterally equal and reactive, pallors not present Chest: diminished breath sounds right lung CVS: S1-S2 regular, no murmurs, no tachycardia, no gallops, no rubs Abdomen: Soft, nontender, no organomegaly, bowel sounds present Neuro: intubated , seadted Ext: anasarca+ Urinary Catheter Management: Vuong: Cath Placed During This Visit: yes Reason for Continuing Indwelling Catheter: Accurate Measurement of Urinary Output in Critically Ill Patients Urinary Catheter Date of Insertion: 10/08/24 Urinary Catheter Time of Insertion: 12:00 Data 10/09/24 01:57 10/09/24 02:13 Micro: Microbiology 10/08/24 11:57 Blood Culture - Preliminary Blood NEGATIVE TO DATE 10/08/24 12:09 Blood Culture - Preliminary Blood NEGATIVE TO DATE 10/08/24 12:12 Gram Stain - Final Sputum - Endotracheal Tube Aspirate A&P Assessment and plan (1) Acute non-ST elevation myocardial infarction (NSTEMI): Patient brought via EMS today intubated and sedated due to reported respiratory distress in the field. He did not receive any chest compressions. Baseline troponin at 36, trending up to 116 on arrival with a delta of 80.6 at 2 hours. 6-hour trend is currently pending. CTA of the chest has ruled out a PE. Clinical picture concerning for NSTEMI. EKG does not show any signs of ST elevation. Started on heparin drip in the emergency room Place OG tube and administered 325 mg start aspirin Atorvastatin 40 mg p.o. daily HbA1c and lipid panel for restratification Patient is already on carvedilol 6.25 mg p.o. twice daily which we will continue. Hold lisinopril for now. Echocardiogram ordered and pending Per review of prior echocardiogram from 2022 patient had an EF of 60% with grade 2 diastolic dysfunction. cardiology consult (2) Congestive heart failure: Acute on chronic CHF exacerbation likely to be the cause of right pleural effusion and anasarca. From 2022 he was noted to have at least a grade 2 diastolic dysfunction Echocardiogram has been currently ordered to assess for new regional wall motion abnormalities, ejection fraction and any worsening in the heart failure. Lasix 40 mg IV every 12 hours, thus far he has received a single dose of Lasix 40 mg in the emergency room Urine output 1600 cc. Vuong catheter to enable strict input and output charting. (3) Cirrhosis of liver: (4) Respiratory failure with hypoxia: (5) Pleural effusion: Large right pleural effusion, unclear cause and chronicity. Lasix 40 mg IV to every 12 hours currently Patient is afebrile, no leukocytosis May be a transudative effusion related to CHF Will aim to perform thoracentesis with IR on Friday once the services are available again (no IR availability over the weekend) Patient is currently intubated for respiratory support Plan DVT prophylaxis: Heparin drip Full code October 09, 2024 Continues to be intubated and sedated in the ICU. Echocardiogram reveals an ejection fraction of 30%, several regional wall motion abnormalities noted. Plan coronary angiogram with cardiology over the weekend. Additionally will plan for thoracentesis on Friday morning. Thereafter plan for extubation depending on respiratory parameters. Continue aspirin 81 mg p.o. daily, Plavix 75 mg p.o. daily, atorvastatin and carvedilol. Continue IV diuresis with Lasix 40 mg IV every 12 hours. He is currently net -2.8 L. Lower extremity edema slightly better today. Creatinine is stable. Continue current diuresis. PDMP PDMP Reviewed: Not Reviewed Attestations 2 Medical Necessity Statement*: Continued admission for NSTEMI, acute hypoxic respiratory failure, needs thoracentesis and coronary angiogram Critical Care Time: Critical Care Time (min): 40 Coding Level of Care Code Critical Care >/= 30 minutes Critical care time (in minutes): 40 The high probability of a clinically significant, sudden or life threatening deterioration, as referenced in this documentation, required my full and direct attention, intervention and personal management. The critical care time shown is in addition to time spent performing any reported separately billable procedures and includes the following: [x] Data and vital sign review and interpretation [x ] Patient assessment, examination and intervention [x] Medication orders and management [x] Patient/Family updates as able [x] Care Coordination and Documentation. Diagnoses Acute non-ST elevation myocardial infarction (NSTEMI) I21.4 Congestive heart failure I50.9 Heart failure chronicity: acute on chronic Heart failure type: unspecified Cirrhosis of liver K74.60 Ascites presence: without ascites Hepatic cirrhosis type: unspecified hepatic cirrhosis Respiratory failure with hypoxia J96.21 Chronicity: acute on chronic Pleural effusion J90
[2024-10-09] MEDS: fentaNYL 1,000 MCG/100 ML BAG 11.5 MCG IV ×2 (14:08→21:48)
[2024-10-09] MEDS: aspirin 81 mg Chew Tablet NG-TUBE (15:07)
[2024-10-09] MEDS: clopidogrel 75 mg Tablet NG-TUBE (15:07)
--- NOTE | 2024-10-09 15:28 | PC.NURSE ---
Pt's nieces were asked to step out, to wait outside room, while pt repositioned and personal care provided. This nurse noted one niece walking in front of other rooms looking in on other patients. This nurse requested her to please just wait outside their family members room. They did.
[2024-10-09 16:44] LABS: Partial Thromboplastin Time 88.1 SECONDS (23.9-36.7)
[2024-10-09] MEDS: heparin drip 25,000 UNIT/500 ML PREMIX 14 UNIT IV (17:19)
--- NOTE | 2024-10-09 18:42 | PC.NURSE ---
Shift summary: Pt remains intubated and sedated. Propofol remains infusing at 20 mcg/kg/min. Fentanyl gtt decreased from 125 mcg/kg to 115 mcg/kg. Heparin gtt adjusted per protocol, rate at 14 ml/hr at know. Sinus rhythm noted on monitor. No ectopy noted. Pedal edema remains at least 3+. Fio2 decreased from 75% to 50%, peep increased to 8. Pinkish colon secretions noted in ETT. Urine output of 600 dark yellow urine noted. Family has been at bedside this afternoon, updates provided and questions answered.
[2024-10-09 23:49] LABS: Partial Thromboplastin Time 50.9 SECONDS (23.9-36.7)
[2024-10-10] VITALS (77 sets, daily range): BP systolic 88–135; BP diastolic 46–74; PULSE 74–91; RESP 12–14; TEMP 36.2–37.2; O2SAT 92–100; BMI 36.8
[2024-10-10] MEDS: heparin 5,000 unit/mL INJ 1 mL IVP ×2 (00:35→13:24)
[2024-10-10] MEDS: propofol 1,000 MG/100 ML INJ 19.6 MG IV ×2 (03:00→10:18)
[2024-10-10] MEDS: ipratropium-albuterol 3 mL Neb INHALATION ×6 (03:35→23:50)
[2024-10-10] MEDS: FUROsemide 10 mg/mL SDV 4mL 40 MG IVP ×2 (04:41→16:58)
[2024-10-10] MEDS: chlorhexidine gluconate 4% Btl 118 mL 1 APPLIC TOPICAL (05:30)
[2024-10-10] MEDS: fentaNYL 1,000 MCG/100 ML BAG 11.5 MCG IV (06:37)
[2024-10-10 06:38] LABS: Basophils % 0.2 %; Eosinophils % 0.4 %; Hematocrit 35.2 % (37-53); Lymphocytes # 1.1 10^3/uL (0.8-4.8); Lymphocytes % 12.7 %; Mean Corpuscular Hemoglobin 34.9 pg (27-33); Mean Platelet Volume 10.6 fL (7.4-10.4); Monocytes # 1.1 10^3/uL (0.2-0.9); Monocytes % 12.6 %; Neutrophils # 6.22 10^3/uL (1.8-7.7); Neutrophils % 73.6 %; Nucleated Red Blood Cells % 0 %; Platelet Count 150 10^3/cmm (157-399); Red Blood Count 3.32 10^6/uL (3.85-5.65); Red Cell Distribution Width 14.3 % (12.1-15.1); White Blood Count 8.44 10^3/uL (3.29-11.43)
[2024-10-10 07:07] LABS: Partial Thromboplastin Time 61.9 SECONDS (23.9-36.7)
[2024-10-10 07:27] LABS: Albumin Level 2.3 g/dL (3.5-5.2); Alkaline Phosphatase 72 U/L (40-130); Blood Urea Nitrogen 16 mg/dL (8-23); Carbon Dioxide 30 mmol/L (22-29); Chloride 93 mmol/L (98-107); Globulin 3.4 g/dL (1.3-4.6); Glomerular Filtration Rate 216.6 mL/min (90-130); Glucose 66 mg/dL (65-115); Osmolality Calculated 273 mOsm/kg (285-295); Sodium 132 mmol/L (136-145); Total Bilirubin 1.6 mg/dL (0.15-1.2); Total Protein 5.7 g/dL (6.6-8.7)
[2024-10-10 07:38] LABS: Aspartate Amino Transferase 5 U/L (0-40)
[2024-10-10 07:40] LABS: Anion Gap 13.1 (5-19); Potassium 4.1 mmol/L (3.5-5.1)
[2024-10-10] MEDS: budesonide 0.5 mg/2 mL Neb INHALATION ×2 (08:15→20:29)
[2024-10-10] MEDS: clopidogrel 75 mg Tablet NG-TUBE (08:32)
[2024-10-10] MEDS: carvedilol 6.25 mg Tablet PO ×2 (08:32→16:59)
[2024-10-10] MEDS: atorvastatin 40 mg Tablet NG-TUBE (08:32)
[2024-10-10] MEDS: aspirin 81 mg Chew Tablet NG-TUBE (08:32)
[2024-10-10 09:19] LABS: Alanine Aminotransferase 17 U/L (0-41)
--- NOTE | 2024-10-10 10:06 | PC.NURSE ---
PEr Dr Alonso: Start weaning sedation. When wean enough, pt to do CPAP on vent. After he has been on CPAP for a while, we will get an ABG and decide whether to extubate or not.
--- NOTE | 2024-10-10 10:11 | PC.NURSE ---
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 We will still get an ABG today.
[2024-10-10 10:30] LABS: ABG PH Result 7.42 (7.35-7.45); Arterial Blood Gas Hematocrit 35.9 % (42-52); Base Excess ABG 12.1 mmol/L (-2.0-2.0); Blood Gas Allen Test Pos; Blood Gas Operator Identificat CAK; Blood Gas Sample Site Radial, left; Blood Gas Sample Type Arterial; HCO3 ABG 38.9 mmol/L (22-26); Oxygen Device VENT; PO2 ABG 56.1 mmHg (80.0-100.0); PO2 FiO2 Ratio Arterial Blood 160
[2024-10-10 10:31] LABS: ABG PCO2 60.6 mmHg (35-45)
--- NOTE | 2024-10-10 12:53 | PC.NURSE ---
Pt repositioned to the right. O2 sats dropped to 84% . Pt using his tongue to move ETT over between his teeth and biting it. RT at beside making adjustments to TT, pt tried to bite her fingers. Sedation increased. Propofol to 50mcg/kg/min and Fentanyl increased to 125 mcg/hr. O2 sats improving, up to 90%.
--- NOTE | 2024-10-10 13:00 | P.PN_ITS ---
Subjective 2 Subjective: Patient remains intubated and sedated today. ABG from this morning showing a pH of 7.42, PCO2 of 60.6, PO2 of 56.1 on vent settings of 35% FiO2, PEEP of 8, tidal volume of 500. FiO2 to be increased. Medications: Reviewed: Yes Vitals/I&O/Wt Last Vital Signs Temp 97.2 F L 10/10/24 04:15 Pulse 85 10/10/24 11:31 Resp 12 10/10/24 11:32 BP 115/52 10/10/24 10:30 Pulse Ox 97 10/10/24 11:32 O2 Del Method Mechanical Ventilation 10/10/24 11:31 O2 Flow Rate 50 10/09/24 14:15 FiO2 35 10/10/24 11:32 10/09/24 10/10/24 10/10/24 22:59 06:59 14:59 Intake Total 311.767 / 723.801 346.030 / 1069.831 318.792 / 318.792 Output Total 600 / 600 850 / 1450 Balance -288.233 / 123.801 -503.970 / -380.169 318.792 / 318.792 Weight last 48 hrs Weight 116.4 kg Weight 116.2 kg Weight 117 kg Weight 118.614 kg Physical Exam 2 Narrative: General: intubated , sedated HEENT: PERRLA, pupils bilaterally equal and reactive, pallors not present Chest: diminished breath sounds right lung CVS: S1-S2 regular, no murmurs, no tachycardia, no gallops, no rubs Abdomen: Soft, nontender, no organomegaly, bowel sounds present Neuro: intubated , seadted Ext: anasarca+ Urinary Catheter Management: Vuong: Cath Placed During This Visit: yes Reason for Continuing Indwelling Catheter: Accurate Measurement of Urinary Output in Critically Ill Patients Urinary Catheter Date of Insertion: 10/08/24 Urinary Catheter Time of Insertion: 12:00 Data 10/10/24 06:29 10/10/24 06:29 Micro: Microbiology 10/08/24 12:05 Urine Culture - Final Urine,Clean Catch 10/08/24 12:12 Gram Stain - Final Sputum - Endotracheal Tube Aspirate Sputum Culture - Preliminary 10/08/24 11:57 Blood Culture - Preliminary Blood NEGATIVE TO DATE 10/08/24 12:09 Blood Culture - Preliminary Blood NEGATIVE TO DATE A&P Assessment and plan (1) Acute non-ST elevation myocardial infarction (NSTEMI): Patient brought via EMS today intubated and sedated due to reported respiratory distress in the field. He did not receive any chest compressions. Baseline troponin at 36, trending up to 116 on arrival with a delta of 80.6 at 2 hours. 6-hour trend is currently pending. CTA of the chest has ruled out a PE. Clinical picture concerning for NSTEMI. EKG does not show any signs of ST elevation. Started on heparin drip in the emergency room Place OG tube and administered 325 mg start aspirin Atorvastatin 40 mg p.o. daily HbA1c and lipid panel for restratification Patient is already on carvedilol 6.25 mg p.o. twice daily which we will continue. Hold lisinopril for now. Echocardiogram ordered and pending Per review of prior echocardiogram from 2022 patient had an EF of 60% with grade 2 diastolic dysfunction. cardiology consult (2) Congestive heart failure: Acute on chronic CHF exacerbation likely to be the cause of right pleural effusion and anasarca. From 2022 he was noted to have at least a grade 2 diastolic dysfunction Echocardiogram has been currently ordered to assess for new regional wall motion abnormalities, ejection fraction and any worsening in the heart failure. Lasix 40 mg IV every 12 hours, thus far he has received a single dose of Lasix 40 mg in the emergency room Urine output 1600 cc. Vuong catheter to enable strict input and output charting. (3) Cirrhosis of liver: (4) Respiratory failure with hypoxia: (5) Pleural effusion: Large right pleural effusion, unclear cause and chronicity. Lasix 40 mg IV to every 12 hours currently Patient is afebrile, no leukocytosis May be a transudative effusion related to CHF Will aim to perform thoracentesis with IR on Friday once the services are available again (no IR availability over the weekend) Patient is currently intubated for respiratory support Plan DVT prophylaxis: Heparin drip Full code October 09, 2024 Continues to be intubated and sedated in the ICU. Echocardiogram reveals an ejection fraction of 30%, several regional wall motion abnormalities noted. Plan coronary angiogram with cardiology over the weekend. Additionally will plan for thoracentesis on Friday morning. Thereafter plan for extubation depending on respiratory parameters. Continue aspirin 81 mg p.o. daily, Plavix 75 mg p.o. daily, atorvastatin and carvedilol. Continue IV diuresis with Lasix 40 mg IV every 12 hours. He is currently net -2.8 L. Lower extremity edema slightly better today. Creatinine is stable. Continue current diuresis. October 10, 2024 Continues to be intubated and sedated. ABG as noted above. Increasing FiO2 to improve oxygenation. Likely that patient has some degree of chronic hypercapnia in reviewing his past numbers and normal pH with a PCO2 of 60. This is likely to be his baseline with regards to carbon dioxide levels. Plan for coronary angiogram tomorrow morning. Will start with weaning post coronary angiogram. Continue aspirin, Plavix, carvedilol in the interim. Continuing on heparin drip for NSTEMI. Will discuss with radiology tomorrow on Friday when they are available if we will be able to proceed with a thoracentesis while patient is on Plavix. Anticipate heparin to be discontinued after coronary angiogram. Repeat chest x- ray with a.m. labs to assess for any interval improvement in the effusions with diuresis. Continue Lasix 40 mg IV every 12 hours. Lower extremity edema is improving. Chest is sounding clear to auscultation today except right lung base with breath sounds are diminished due to known effusion. Currently net -3 L since admission. Closely monitor creatinine with diuresis. Left voicemail asking family members to call us back for updates. PDMP PDMP Reviewed: Not Reviewed Attestations 2 Medical Necessity Statement*: Continued ICU admission for respiratory support with mechanical ventilation, planned angiogram tomorrow morning. Critical Care Time: The high probability of a clinically significant, sudden or life threatening deterioration of the patient's [] system(s) required my full and direct attention, intervention and personal management. The critical care time is as shown. This time is in addition to time spent performing any reported procedures but includes the following: [x] Data and vital sign review and interpretation [x] Patient assessment, examination and intervention [x] Documentation [x] Medication orders and management Critical Care Time (min): 40 Coding Level of Care Code Critical Care >/= 30 minutes Critical care time (in minutes): 40 The high probability of a clinically significant, sudden or life threatening deterioration, as referenced in this documentation, required my full and direct attention, intervention and personal management. The critical care time shown is in addition to time spent performing any reported separately billable procedures and includes the following: [x] Data and vital sign review and interpretation [x ] Patient assessment, examination and intervention [x] Medication orders and management [x] Patient/Family updates as able [x] Care Coordination and Documentation. Diagnoses Acute non-ST elevation myocardial infarction (NSTEMI) I21.4 Congestive heart failure I50.9 Heart failure chronicity: acute on chronic Heart failure type: unspecified Cirrhosis of liver K74.60 Ascites presence: without ascites Hepatic cirrhosis type: unspecified hepatic cirrhosis Respiratory failure with hypoxia J96.21 Chronicity: acute on chronic Pleural effusion J90
[2024-10-10 13:08] LABS: Partial Thromboplastin Time 52.3 SECONDS (23.9-36.7)
[2024-10-10 13:51] LABS: Glucose Point of Care 60 mg/dL (70-110)
--- NOTE | 2024-10-10 13:52 | PC.NURSE ---
Reviewed pt's chart giana. labs noted blood sugar lower this am that yesterday. Spot checked his blood sugar. 60mg/dl. Dr Alonso notified via telephone. Orders for Ensure per NG and Dextrose IV etered by physician.
[2024-10-10] MEDS: dextrose 10% 250 ML 1000 ML IV (14:03)
[2024-10-10] MEDS: propofol 1,000 MG/100 ML INJ 39.19 MG IV (14:04)
[2024-10-10] MEDS: fentaNYL 1,000 MCG/100 ML BAG 12.5 MCG IV ×2 (14:28→22:42)
[2024-10-10 14:37] LABS: Glucose Point of Care 117 mg/dL (70-110)
--- NOTE | 2024-10-10 14:55 | P.PN_ITS ---
Subjective 2 Subjective: I saw patient this morning, reviewed progress overnight also reviewed lab data and current medication. Patient remains intubated. He is stable hemodynamically otherwise. Not on any inotropic support. Is maintaining his blood pressure. Echo yesterday revealed significant reduction of LV systolic function from normal to 30% with overall global hypokinesis. Medications: Medication Review Details: Detail medication reviewed. Vitals/I&O/Wt Last Vital Signs Temp 98.9 F 10/10/24 13:00 Pulse 89 10/10/24 14:35 Resp 12 10/10/24 13:30 BP 88/46 10/10/24 14:30 Pulse Ox 94 10/10/24 14:30 O2 Del Method Mechanical Ventilation 10/10/24 14:30 O2 Flow Rate 50 10/09/24 14:15 FiO2 35 10/10/24 14:30 10/09/24 10/10/24 10/10/24 22:59 06:59 14:59 Intake Total 311.767 / 723.801 346.030 / 1069.831 814.340 / 814.340 Output Total 600 / 600 850 / 1450 Balance -288.233 / 123.801 -503.970 / -380.169 814.340 / 814.340 Weight last 48 hrs Weight 256 lb 9.889 oz Weight 256 lb 2.834 oz Weight 257 lb 15.053 oz Weight 261 lb 8 oz Physical Exam 2 Const: OTHER: Patient is intubated and on sedation for mechanical ventilation. He appears comfortable. HENMT: OTHER: Patient is intubated. Resp: OTHER: Reduced air entry on the left side due to pleural effusion., Cardio: OTHER: Normal 1st and 2nd heart sounds. No added sounds. GI: OTHER: Soft abdomen. Bowel sounds audible. Extremity: NARRATIVE EXTREMITY EXAM: Bilateral lower extremity significant chronic edema. Neuro: OTHER: Patient is on mechanical ventilation and on sedation. Skin: OTHER: Warm and dry. Urinary Catheter Management: Vuong: Cath Placed During This Visit: yes Reason for Continuing Indwelling Catheter: Accurate Measurement of Urinary Output in Critically Ill Patients Urinary Catheter Date of Insertion: 10/08/24 Urinary Catheter Time of Insertion: 12:00 Data 10/10/24 06:29 10/10/24 06:29 Micro: Microbiology 10/08/24 12:05 Urine Culture - Final Urine,Clean Catch 10/08/24 12:12 Gram Stain - Final Sputum - Endotracheal Tube Aspirate Sputum Culture - Preliminary 10/08/24 11:57 Blood Culture - Preliminary Blood NEGATIVE TO DATE 10/08/24 12:09 Blood Culture - Preliminary Blood NEGATIVE TO DATE A&P Assessment and plan (1) Acute non-ST elevation myocardial infarction (NSTEMI): 64-year-old male patient with worsening respiratory failure and currently on mechanical ventilation. From cardiac standpoint of view patient has a chronic lower extremity edema consistent with reduced LV systolic function, 30% LVEF. Patient remains stable on ventilation. He is not requiring any inotropic support. Stable cardiac ischemic status Plan: Will continue current medical management including IV heparin and dual antiplatelets. Will review the clinical status tomorrow morning and for possible left heart cath. PDMP PDMP Reviewed: Not Reviewed Attestations 2 Medical Necessity Statement*: NSTEMI Respiratory failure on mechanical ventilation Coding Level of Care Code 59914 Diagnoses Acute non-ST elevation myocardial infarction (NSTEMI) I21.4 Time Spent (min) 20
[2024-10-10] MEDS: glucagon 1 mg/mL KIT 1 mL IM (14:58)
[2024-10-10 18:53] LABS: Partial Thromboplastin Time 62.2 SECONDS (23.9-36.7)
--- NOTE | 2024-10-10 19:30 | PC.NURSE ---
Shift summary: Pt remains sedated an intubated. Fentanyl gtt at 125mcg/kg and Propofol at 30 mcg/kg/min. Heparin gtt still infusing, adjusted per protocol, see MAR. FIO2 remains at 35%, no changes in vent settings. Sinus rhythm noted on monitor throughout shift. No ectopy. VSS, pt afebrile. No changes in pitting edema on his feet. Pt had a hypoglycemia episode. Ensure per OG TID and 250 ml of D10%. Blood sugar now stable. Urine out of 850 ml.
[2024-10-10] MEDS: propofol 1,000 MG/100 ML INJ 29.39 MG IV ×2 (19:31→23:34)
[2024-10-11] VITALS (62 sets, daily range): BP systolic 93–149; BP diastolic 47–75; PULSE 56–86; RESP 12–17; TEMP 36.8–37.4; O2SAT 93–100
[2024-10-11 00:52] LABS: Partial Thromboplastin Time 56.7 SECONDS (23.9-36.7)
[2024-10-11 00:56] LABS: Glucose Point of Care 75 mg/dL (70-110)
[2024-10-11] MEDS: dextrose 10% 250 ML 999 ML IV (00:58)
[2024-10-11] MEDS: heparin drip 25,000 UNIT/500 ML PREMIX 18 UNIT IV (01:01)
[2024-10-11 01:53] LABS: Glucose Point of Care 94 mg/dL (70-110)
--- NOTE | 2024-10-11 04:00 | XRR_ITS ---
PROCEDURE INFORMATION: Exam: XR Chest Exam date and time: 10/11/2024 5:46 AM Age: 64 years old Clinical indication: Condition or disease; Lung condition and disease; Pleural effusion; Other: Not specified; Fu resp failure. Intubated. ; Additional info: Assess rith pleural effusion TECHNIQUE: Imaging protocol: Radiologic exam of the chest. Views: 1 view. COMPARISON: CT angio chest w abd pel w con 10/08/2024 2:40 PM FINDINGS: Tubes, catheters and devices: There is an endotracheal tube with the head of the clavicles. The nasogastric tube projects off the bottom of the image. Lungs: Pulmonary vascular congestion and suspected interstitial pulmonary edema. Stable appearing right lower lobe consolidation and relatively stable appearing infiltrates at the left lung base. Pleural spaces: Grossly stable appearing large right pleural effusion. Heart/Mediastinum: The heart size is stable. Bones/joints: Unremarkable. XR/XR chest 1V portable [id number] IMPRESSION: 1. Grossly stable appearing large right pleural effusion. 2. Cardiomegaly, pulmonary vascular congestion and suspected interstitial pulmonary edema. 3. Stable right lower lobe consolidation and persistent infiltrates in the left lower lobe.
[2024-10-11] MEDS: ipratropium-albuterol 3 mL Neb INHALATION ×6 (04:35→23:28)
[2024-10-11] MEDS: propofol 1,000 MG/100 ML INJ 24.49 MG IV ×2 (04:59→11:34)
[2024-10-11] MEDS: FUROsemide 10 mg/mL SDV 4mL 40 MG IVP ×2 (05:57→17:01)
[2024-10-11] MEDS: fentaNYL 1,000 MCG/100 ML BAG 10 MCG IV (05:57)
[2024-10-11 05:59] LABS: ABG PH Result 7.41 (7.35-7.45); Arterial Blood Gas Hematocrit 34.5 % (42-52); Base Excess ABG 12.3 mmol/L (-2.0-2.0); Blood Gas Allen Test Pos; Blood Gas Operator Identificat SAM; Blood Gas Sample Site Radial, right; Blood Gas Sample Type Arterial; HCO3 ABG 39.1 mmol/L (22-26); Oxygen Device VENT; PO2 ABG 76.6 mmHg (80.0-100.0); PO2 FiO2 Ratio Arterial Blood 170
[2024-10-11 06:02] LABS: ABG PCO2 61.1 mmHg (35-45)
[2024-10-11 06:06] LABS: Glucose Point of Care 103 mg/dL (70-110)
[2024-10-11 07:06] LABS: Basophils % 0.2 %; Eosinophils % 0.1 %; Hematocrit 35.2 % (37-53); Lymphocytes # 1.3 10^3/uL (0.8-4.8); Lymphocytes % 13.4 %; Mean Corpuscular HGB Conc 32.7 g/dL (30-55); Mean Corpuscular Hemoglobin 33.8 pg (27-33); Mean Corpuscular Volume 103.5 fl (82-101); Mean Platelet Volume 11.2 fL (7.4-10.4); Monocytes # 1.3 10^3/uL (0.2-0.9); Neutrophils # 7.26 10^3/uL (1.8-7.7); Neutrophils % 72.5 %; Nucleated Red Blood Cells % 0 %; Platelet Count 148 10^3/cmm (157-399); Red Cell Distribution Width 14.4 % (12.1-15.1); White Blood Count 10.01 10^3/uL (3.29-11.43)
[2024-10-11 07:20] LABS: Partial Thromboplastin Time 51.5 SECONDS (23.9-36.7)
[2024-10-11 07:26] LABS: Alanine Aminotransferase < 5 U/L (0-41); Albumin Level 2.4 g/dL (3.5-5.2); Alkaline Phosphatase 83 U/L (40-130); Blood Urea Nitrogen 22 mg/dL (8-23); Calcium 8.2 mg/dL (8.5-10.5); Carbon Dioxide 35 mmol/L (22-29); Chloride 92 mmol/L (98-107); Creatinine Clr Calc Pharmacy 192.5333; Globulin 3.6 g/dL (1.3-4.6); Glomerular Filtration Rate 167.4 mL/min (90-130); Glucose 99 mg/dL (65-115); Osmolality Calculated 279 mOsm/kg (285-295); Sodium 133 mmol/L (136-145); Total Bilirubin 1.7 mg/dL (0.15-1.2)
[2024-10-11 07:29] LABS: Anion Gap 9.7 (5-19); Aspartate Amino Transferase 47 U/L (0-40); Potassium 3.7 mmol/L (3.5-5.1)
[2024-10-11] MEDS: budesonide 0.5 mg/2 mL Neb INHALATION ×2 (08:14→20:10)
[2024-10-11] MEDS: atorvastatin 40 mg Tablet NG-TUBE (08:18)
[2024-10-11] MEDS: carvedilol 6.25 mg Tablet PO ×2 (08:18→17:01)
[2024-10-11] MEDS: aspirin 81 mg Chew Tablet NG-TUBE (08:18)
[2024-10-11] MEDS: clopidogrel 75 mg Tablet NG-TUBE (08:18)
[2024-10-11 09:02] LABS: INR 1.21 (0.8-1.2)
--- NOTE | 2024-10-11 09:30 | PC.NURSE ---
To mill laborer via bed with mill laborer nurses and Adelaida RT at bedside.
--- NOTE | 2024-10-11 09:52 | W.PM.OPSUD ---
Surgery/Procedure H&P Update DATE OF PROCEDURE: October 11, 2024 DATE H&P PERFORMED: 10/08/24 H&P UPDATE INFORMATION: I have reviewed H&P completed within last 30 days, I have examined patient prior to procedure and No changes to prior documentation PREOP DIAGNOSIS: NSTEMI/ LV dysfunction PRIMARY INDICATION FOR PROCEDURE: NSTEMI/ LV dysfunction PLANNED PROCEDURE: Left heart cath with possible percutaneous coronary intervention PATIENT REASSESSED PRIOR TO SEDATION, WITH NO CHANGE NOTED: Yes PHYSICAL EXAM: regular rate & rhythm OTHER PERTINENT EXAM FINDINGS: Intubated and sedated. Diminished air entry bilaterally ADDITIONAL INFORMATION: Intubated and sedated
--- NOTE | 2024-10-11 10:00 | P.PN_ITS ---
<Statement entered by Rd Gr M.D - 10/14/24 08:46> Patient was evaluated and cared for in conjunction with an advanced practice practitioner.? I personally examined the patient and reviewed the chart and all pertinent data including imaging, telemetry, and laboratory results.? I discussed the patient in detail with the advanced practice practitioner.? Please see? their note for complete progress note, testing results and agreed upon plan of care for the patient. Patient is intubated and sedated. Has, with respiratory failure, LV dysfunction and troponin elevation. Plan for coronary angiogram with possible PCI. Risks and benefits discussed in detail with patient's family. They understand it and want to proceed. GENERAL: Patient is intubated and sedated HEART: Regular S1 and S2 LUNGS: Diminished air entry bilaterally CENTRAL NERVOUS SYSTEM: Grossly nonfocal. EXTREMITIES: Lower extremities without edema bilaterally. Subjective 2 Subjective: He remains intubated and sedated. Plan for coronary angiogram this morning, NSTEMI, LV dysfunction. Blood pressures are stable without vasopressor. Vitals/I&O/Wt Last Vital Signs Temp 98.3 F 10/11/24 08:00 Pulse 66 10/11/24 09:30 Resp 12 10/11/24 09:13 BP 109/56 10/11/24 09:30 Pulse Ox 98 10/11/24 09:30 O2 Del Method Mechanical Ventilation 10/11/24 08:14 O2 Flow Rate 45 10/11/24 08:00 FiO2 45 10/11/24 09:13 10/10/24 10/11/24 10/11/24 22:59 06:59 14:59 Intake Total 695.897 / 2032.811 522.574 / 2032.811 132.3 / 132.3 Output Total 850 / 1850 1000 / 1850 850 / 850 Balance -154.103 / 182.811 -477.426 / 182.811 -717.7 / -717.7 Weight last 48 hrs Weight 261 lb 3.964 oz Weight 256 lb 9.889 oz Physical Exam 2 Const: COMMON NORMALS: no acute distress GENERAL APPEARANCE: comfortable ORIENTATION/CONSCIOUSNESS: Yes Other orientation findings (Intubated sedated) Chest: COMMONS NORMALS: normal inspection of the chest and normal palpation of entire chest wall CHEST: Yes Symmetrical chest wall rise Resp: COMMON NORMALS: normal respiratory effort, No retractions, No use of accessory muscles and clear to auscultation bilaterally EFFORT & INSPECTION: Yes symmetric chest movement AUSCULTATION: clear to auscultation bilaterally Cardio: COMMON NORMALS: regular rate, regular rhythm, S1 normal heart sound present, S2 normal heart sound present, No gallops present (Cardio), No clicks present (Cardio), No murmurs present (Cardio) and No rub (Cardio) RATE: r egular rate RHYTHM: regular rhythm HEART SOUNDS: S1 normal heart sound present and S2 normal heart sound present PERIPHERAL PULSES: radial pulses present Extremity: GENERAL: Yes edema (1-2+ pitting edema bilateral lower extremity below knee) Neuro: COMMON NORMALS: moves all extremities Urinary Catheter Management: Vuong: Cath Placed During This Visit: yes Reason for Continuing Indwelling Catheter: Accurate Measurement of Urinary Output in Critically Ill Patients Urinary Catheter Date of Insertion: 10/08/24 Urinary Catheter Time of Insertion: 12:00 Data 10/11/24 06:36 10/11/24 06:36 Micro: Microbiology 10/08/24 12:12 Gram Stain - Final Sputum - Endotracheal Tube Aspirate Sputum Culture - Final 10/08/24 12:05 Urine Culture - Final Urine,Clean Catch A&P Assessment and plan (1) Acute non-ST elevation myocardial infarction (NSTEMI): (2) Congestive heart failure: Plan Plan for coronary angiography this morning. He is -700 mL so far today. Chronic changes to the skin of the lower legs, reflecting venous insufficiency, some edema present. Continue aspirin, Plavix, statin, carvedilol. PDMP PDMP Reviewed: Not Reviewed Attestations 2 Medical Necessity Statement*: NSTEMI Coding Level of Care Code Acute Code for [facility] Diagnoses Acute non-ST elevation myocardial infarction (NSTEMI) I21.4 Congestive heart failure I50.9 Heart failure chronicity: acute on chronic Heart failure type: unspecified
--- NOTE | 2024-10-11 10:31 | PM.PROC ---
Procedure Note: Date of procedure: 10/11/24 Pre-procedure diagnosis: NSTEMI/LV dysfunction Post-procedure diagnosis: other (Severe proximal LAD stenosis s/p successful revascularization with 1 stent) Procedure: Left main has mild luminal irregularities. Proximal LAD has severe stenosis status post successful revascularization with 1 stent. RCA and left circumflex arteries are patent. Dual antiplatelet therapy with aspirin and plavix Performing Provider: Rd Gr Estimated blood loss (mL): 10 Complications: None Condition: stable Disposition: ICU Coding Level of Care Code Acute Code for [facility]
--- NOTE | 2024-10-11 10:40 | PC.NURSE ---
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 Sheath in place to right groin.
[2024-10-11 11:07] LABS: Glucose Point of Care 96 mg/dL (70-110)
[2024-10-11 11:08] LABS: Glucose Point of Care 106 mg/dL (70-110)
[2024-10-11] MEDS: sodium chloride 0.9% 1,000 ML 100 ML IV (11:34)
[2024-10-11 13:23] LABS: Partial Thromboplastin Time 100.6 SECONDS (23.9-36.7)
--- NOTE | 2024-10-11 16:04 | P.PN_ITS ---
Subjective 2 Subjective: s/p angiogram today with stents to LAD today Medications: Reviewed: Yes Medication Review Details: Detail medication reviewed. Vitals/I&O/Wt Last Vital Signs Temp 98.4 F 10/11/24 12:00 Pulse 82 10/11/24 15:12 Resp 17 10/11/24 15:19 BP 106/63 10/11/24 14:30 Pulse Ox 98 10/11/24 15:19 O2 Del Method Mechanical Ventilation 10/11/24 15:12 O2 Flow Rate 45 10/11/24 08:00 FiO2 45 10/11/24 15:19 10/11/24 10/11/24 10/11/24 06:59 14:59 22:59 Intake Total 522.574 / 2032.811 372.766 / 372.766 Output Total 1000 / 1850 850 / 850 Balance -477.426 / 182.811 -477.234 / -477.234 Weight last 48 hrs Weight 118.5 kg Weight 116.4 kg Physical Exam 2 Narrative: General: intubated , sedated HEENT: PERRLA, pupils bilaterally equal and reactive, pallors not present Chest: diminished breath sounds right lung CVS: S1-S2 regular, no murmurs, no tachycardia, no gallops, no rubs Abdomen: Soft, nontender, no organomegaly, bowel sounds present Neuro: intubated , seadted Ext: anasarca+ Urinary Catheter Management: Vuong: Cath Placed During This Visit: yes Reason for Continuing Indwelling Catheter: Accurate Measurement of Urinary Output in Critically Ill Patients Urinary Catheter Date of Insertion: 10/08/24 Urinary Catheter Time of Insertion: 12:00 Data 10/11/24 06:36 10/11/24 06:36 Micro: Microbiology 10/08/24 12:12 Gram Stain - Final Sputum - Endotracheal Tube Aspirate Sputum Culture - Final 10/08/24 12:05 Urine Culture - Final Urine,Clean Catch A&P Assessment and plan (1) Acute non-ST elevation myocardial infarction (NSTEMI): Patient brought via EMS today intubated and sedated due to reported respiratory distress in the field. He did not receive any chest compressions. Baseline troponin at 36, trending up to 116 on arrival with a delta of 80.6 at 2 hours. 6-hour trend is currently pending. CTA of the chest has ruled out a PE. Clinical picture concerning for NSTEMI. EKG does not show any signs of ST elevation. Started on heparin drip in the emergency room Place OG tube and administered 325 mg start aspirin Atorvastatin 40 mg p.o. daily HbA1c and lipid panel for restratification Patient is already on carvedilol 6.25 mg p.o. twice daily which we will continue. Hold lisinopril for now. Echocardiogram ordered and pending Per review of prior echocardiogram from 2022 patient had an EF of 60% with grade 2 diastolic dysfunction. cardiology consult (2) Congestive heart failure: Acute on chronic CHF exacerbation likely to be the cause of right pleural effusion and anasarca. From 2022 he was noted to have at least a grade 2 diastolic dysfunction Echocardiogram has been currently ordered to assess for new regional wall motion abnormalities, ejection fraction and any worsening in the heart failure. Lasix 40 mg IV every 12 hours, thus far he has received a single dose of Lasix 40 mg in the emergency room Urine output 1600 cc. Vuong catheter to enable strict input and output charting. (3) Cirrhosis of liver: (4) Respiratory failure with hypoxia: (5) Pleural effusion: Large right pleural effusion, unclear cause and chronicity. Lasix 40 mg IV to every 12 hours currently Patient is afebrile, no leukocytosis May be a transudative effusion related to CHF Will aim to perform thoracentesis with IR on Friday once the services are available again (no IR availability over the weekend) Patient is currently intubated for respiratory support Plan DVT prophylaxis: Heparin drip Full code October 09, 2024 Continues to be intubated and sedated in the ICU. Echocardiogram reveals an ejection fraction of 30%, several regional wall motion abnormalities noted. Plan coronary angiogram with cardiology over the weekend. Additionally will plan for thoracentesis on Friday morning. Thereafter plan for extubation depending on respiratory parameters. Continue aspirin 81 mg p.o. daily, Plavix 75 mg p.o. daily, atorvastatin and carvedilol. Continue IV diuresis with Lasix 40 mg IV every 12 hours. He is currently net -2.8 L. Lower extremity edema slightly better today. Creatinine is stable. Continue current diuresis. October 10, 2024 Continues to be intubated and sedated. ABG as noted above. Increasing FiO2 to improve oxygenation. Likely that patient has some degree of chronic hypercapnia in reviewing his past numbers and normal pH with a PCO2 of 60. This is likely to be his baseline with regards to carbon dioxide levels. Plan for coronary angiogram tomorrow morning. Will start with weaning post coronary angiogram. Continue aspirin, Plavix, carvedilol in the interim. Continuing on heparin drip for NSTEMI. Will discuss with radiology tomorrow on Friday when they are available if we will be able to proceed with a thoracentesis while patient is on Plavix. Anticipate heparin to be discontinued after coronary angiogram. Repeat chest x- ray with a.m. labs to assess for any interval improvement in the effusions with diuresis. Continue Lasix 40 mg IV every 12 hours. Lower extremity edema is improving. Chest is sounding clear to auscultation today except right lung base with breath sounds are diminished due to known effusion. Currently net -3 L since admission. Closely monitor creatinine with diuresis. Left voicemail asking family members to call us back for updates. October 11, 2024 Patient continues to be intubated and sedated. Weaning trial was attempted this afternoon however it was not successful. Patient became tachypneic, pCO2 started to increase per dicussion with RT. he underwent coronary angiogram today with placement of stent in the LAD. Continue aspirin Plavix and atorvastatin along with Coreg. Lasix 40 mg IV every 12 hours to continue. Diuresing well overall. Lower extremity edema continues to improve. Chest x-ray chest x-ray showing unchanged right pleural effusion. Noted consolidation on the chest x-ray today, per previous CT read this was a band of atelectasis. Mildly elevated Tmax at 99.3 Fahrenheit today. Start ceftriaxone 1 g IV every 24 hours in case of developing pneumonia. Start DVT prophylaxis with Lovenox 40 mg subcutaneously daily now that he is off heparin drip. PDMP PDMP Reviewed: Not Reviewed Attestations 2 Medical Necessity Statement*: failed weaning trial today, will be re attamepted tomorrow. s/p angiogram today Coding Level of Care Code Acute Code for [facility] Diagnoses Acute non-ST elevation myocardial infarction (NSTEMI) I21.4 Congestive heart failure I50.9 Heart failure chronicity: acute on chronic Heart failure type: unspecified Cirrhosis of liver K74.60 Ascites presence: without ascites Hepatic cirrhosis type: unspecified hepatic cirrhosis Respiratory failure with hypoxia J96.21 Chronicity: acute on chronic Pleural effusion J90
--- NOTE | 2024-10-11 16:05 | PC.NURSE ---
Sedation turned off and attempted to wean patient off of vent. Placed on C-Pap per respiratory therapist. Unable to remain awake with spontaneous respiratory rate of 4-6/min with continued need to be woken up and reminded to breath. RT contacted Dr. Alonso and instructions given to place patient back on sedation and will attempt weaning in the AM tomorrow.
[2024-10-11 16:42] LABS: Partial Thromboplastin Time 23.2 SECONDS (23.9-36.7)
[2024-10-11 17:08] LABS: Glucose Point of Care 119 mg/dL (70-110)
--- NOTE | 2024-10-11 19:11 | PC.NURSE ---
1720 Right femoral sheath dc'd. Pressure applied x 20 min, no hematoma or bleeding. Clear occlusive dressing applied with 4x4 gauze. Tolerated well.
[2024-10-11] MEDS: propofol 1,000 MG/100 ML INJ 19.6 MG IV (20:55)
[2024-10-11] MEDS: fentaNYL 1,000 MCG/100 ML BAG 5 MCG IV (20:57)
[2024-10-11] MEDS: cefTRIAXone 1,000 mg SDV 1000 MG IVP (21:04)
[2024-10-11] MEDS: enoxaparin 40 mg/0.4 mL Syringe SUBCUT (21:05)
[2024-10-12] VITALS (55 sets, daily range): BP systolic 92–150; BP diastolic 46–79; PULSE 57–85; RESP 8–16; TEMP 36.6–37; O2SAT 91–98
[2024-10-12 02:23] LABS: Glucose Point of Care 121 mg/dL (70-110)
[2024-10-12] MEDS: propofol 1,000 MG/100 ML INJ 19.6 MG IV (02:30)
[2024-10-12 03:35] LABS: Glucose Point of Care 110 mg/dL (70-110)
[2024-10-12] MEDS: ipratropium-albuterol 3 mL Neb INHALATION ×5 (04:26→20:35)
[2024-10-12 04:43] LABS: ABG PH Result 7.38 (7.35-7.45); Arterial Blood Gas Hematocrit 35.7 % (42-52); Base Excess ABG 12.7 mmol/L (-2.0-2.0); Blood Gas Allen Test Pos; Blood Gas Operator Identificat SAM; Blood Gas Sample Site Radial, right; Blood Gas Sample Type Arterial; HCO3 ABG 40.5 mmol/L (22-26); Oxygen Device VENT; PO2 ABG 66.1 mmHg (80.0-100.0); PO2 FiO2 Ratio Arterial Blood 146
[2024-10-12] MEDS: FUROsemide 10 mg/mL SDV 4mL 40 MG IVP ×2 (04:44→16:23)
[2024-10-12 05:17] LABS: Basophils % 0.4 %; Eosinophils # 0.2 10^3/uL (0.0-0.8); Eosinophils % 2.3 %; Hematocrit 34.9 % (37-53); Lymphocytes % 14.1 %; Mean Corpuscular HGB Conc 32.7 g/dL (30-55); Mean Corpuscular Hemoglobin 33.8 pg (27-33); Mean Corpuscular Volume 103.6 fl (82-101); Mean Platelet Volume 10.8 fL (7.4-10.4); Monocytes # 1.1 10^3/uL (0.2-0.9); Monocytes % 15.6 %; Neutrophils # 4.83 10^3/uL (1.8-7.7); Neutrophils % 66.6 %; Nucleated Red Blood Cells % 0 %; Platelet Count 149 10^3/cmm (157-399); Red Blood Count 3.37 10^6/uL (3.85-5.65); Red Cell Distribution Width 14.2 % (12.1-15.1); White Blood Count 7.25 10^3/uL (3.29-11.43)
[2024-10-12 05:53] LABS: Alanine Aminotransferase 19 U/L (0-41); Albumin Level 2.4 g/dL (3.5-5.2); Alkaline Phosphatase 87 U/L (40-130); Anion Gap 7.4 (5-19); Aspartate Amino Transferase 39 U/L (0-40); Blood Urea Nitrogen 20 mg/dL (8-23); Calcium 8.3 mg/dL (8.5-10.5); Carbon Dioxide 35 mmol/L (22-29); Chloride 96 mmol/L (98-107); Globulin 3.4 g/dL (1.3-4.6); Glomerular Filtration Rate 167.4 mL/min (90-130); Glucose 124 mg/dL (65-115); Magnesium 1.8 mg/dL (1.7-2.3); Osmolality Calculated 284 mOsm/kg (285-295); Potassium 3.4 mmol/L (3.5-5.1); Sodium 135 mmol/L (136-145); Total Bilirubin 1.4 mg/dL (0.15-1.2); Total Protein 5.8 g/dL (6.6-8.7)
[2024-10-12] MEDS: budesonide 0.5 mg/2 mL Neb INHALATION ×2 (08:29→20:35)
[2024-10-12 08:50] LABS: ABG PCO2 69.1 mmHg (35-45)
[2024-10-12] MEDS: atorvastatin 40 mg Tablet NG-TUBE (09:05)
[2024-10-12] MEDS: carvedilol 6.25 mg Tablet PO ×2 (09:05→17:24)
[2024-10-12] MEDS: aspirin 81 mg Chew Tablet NG-TUBE (09:05)
[2024-10-12] MEDS: clopidogrel 75 mg Tablet NG-TUBE (09:05)
[2024-10-12 09:18] LABS: Glucose Point of Care 107 mg/dL (70-110)
--- NOTE | 2024-10-12 09:38 | P.PN_ITS ---
<Statement entered by Rd Gr M.D - 10/14/24 08:58> Patient was evaluated and cared for in conjunction with an advanced practice practitioner.? I personally examined the patient and reviewed the chart and all pertinent data including imaging, telemetry, and laboratory results.? I discussed the patient in detail with the advanced practice practitioner.? Please see? their note for complete progress, testing results and agreed upon plan of care for the patient. Subjective 2 Subjective: Intubated and sedated, Vent settings -AC, rate of 8, FiO2 45%, PEEP of 8. He is sedated with fentanyl and propofol infusion. Heart rate and blood pressures are stable. Renal function is normal. He is s/p PCI of the proximal LAD yesterday. No complications with femoral cath site. Continue aspirin, Plavix, statin, carvedilol. He is diuresing well with Lasix 40 twice daily, -1500mL yesterday, -4700mL cumulative. Vitals/I&O/Wt Last Vital Signs Temp 97.9 F 10/12/24 08:00 Pulse 82 10/12/24 08:52 Resp 13 10/12/24 08:31 BP 123/67 10/12/24 06:00 Pulse Ox 97 10/12/24 08:31 O2 Del Method Mechanical Ventilation 10/12/24 08:31 O2 Flow Rate 45 10/12/24 08:00 FiO2 45 10/12/24 08:31 10/11/24 10/12/24 10/12/24 22:59 06:59 14:59 Intake Total 363.451 / 914.209 147.367 / 914.209 77.225 / 77.225 Output Total 800 / 2425 775 / 2425 Balance -436.549 / -1510.791 -627.633 / -1510.791 77.225 / 77.225 Weight last 48 hrs Weight 254 lb 10.142 oz Weight 261 lb 3.964 oz Physical Exam 2 Const: COMMON NORMALS: no acute distress EXAM LIMITATIONS: other limitations (Intubated and sedated) GENERAL APPEARANCE: cooperative Chest: COMMONS NORMALS: normal inspection of the chest and normal palpation of entire chest wall CHEST: Yes Symmetrical chest wall rise Resp: COMMON NORMALS: normal respiratory effort, No retractions, No use of accessory muscles and clear to auscultation bilaterally AUSCULTATION: clear to auscultation bilaterally Cardio: COMMON NORMALS: regular rate, regular rhythm, S1 normal heart sound present, S2 normal heart sound present, No gallops present (Cardio), No clicks present (Cardio), No murmurs present (Cardio) and No rub (Cardio) RATE: r egular rate RHYTHM: regular rhythm HEART SOUNDS: S1 normal heart sound present and S2 normal heart sound present PERIPHERAL PULSES: radial pulses present positive right 2+ and femoral pulses present positive right 2+ Extremity: GENERAL: Yes edema (2+ pitting edema bilat LE ) OTHER: chronic skin changes, venous insufficiency Skin: WOUNDS: Yes surgical site (no hematoma palpable) Details: no odor Urinary Catheter Management: Vuong: Cath Placed During This Visit: yes Reason for Continuing Indwelling Catheter: Accurate Measurement of Urinary Output in Critically Ill Patients Urinary Catheter Date of Insertion: 10/08/24 Urinary Catheter Time of Insertion: 12:00 Data 10/12/24 04:59 10/12/24 04:59 A&P Assessment and plan (1) Acute non-ST elevation myocardial infarction (NSTEMI): (2) Congestive heart failure: Plan He is s/p PCI of the proximal LAD yesterday. LVEF was 30% on 10/08/2024. Continue IV diuresis 40 mg twice a day. Continue aspirin, Plavix, statin, carvedilol. Appreciate hospitalist management. PDMP PDMP Reviewed: Not Reviewed Attestations 2 Medical Necessity Statement*: NSTEMI, systolic CHF Coding Level of Care Code Acute Code for [facility] Diagnoses Acute non-ST elevation myocardial infarction (NSTEMI) I21.4 Congestive heart failure I50.9 Heart failure chronicity: acute on chronic Heart failure type: unspecified
--- NOTE | 2024-10-12 11:17 | PC.NURSE ---
[address] failed, but if need any sedation may start Fentanyl back and start Presedex but not Propofol. Removed Propofol bottle and tubing and wasted approx 45mls from bottle with witness of Anitha CHANDRA in ICU.
[2024-10-12] MEDS: lidocaine 1% 5 ML in potassium chloride premix 100 ML 26.25 ML IV (13:28)
[2024-10-12] MEDS: metOLazone 5 MG Tablet PO (13:31)
--- NOTE | 2024-10-12 13:38 | PC.NURSE ---
1330 patient off all sedation, resting well, but opens eyes and knods head and mouths to answer questions, and follows commands well.
[2024-10-12 13:46] LABS: Glucose Point of Care 101 mg/dL (70-110)
--- NOTE | 2024-10-12 15:09 | P.PN_ITS ---
Subjective 2 Subjective: Patient was seen this morning, currently intubated, sedated on mechanical ventilation, 45% FiO2, PEEP of 8, afebrile overnight, normotensive, Vitals/I&O/Wt Last Vital Signs Temp 98.3 F 10/12/24 10:30 Pulse 74 10/12/24 15:00 Resp 11 L 10/12/24 15:00 BP 122/56 10/12/24 14:00 Pulse Ox 96 10/12/24 15:00 O2 Del Method Mechanical Ventilation 10/12/24 15:00 O2 Flow Rate 45 10/12/24 08:00 FiO2 45 10/12/24 15:00 10/12/24 10/12/24 10/12/24 06:59 14:59 22:59 Intake Total 147.367 / 883.584 137.225 / 137.225 Output Total 775 / 2425 Balance -627.633 / -1541.416 137.225 / 137.225 Weight last 48 hrs Weight 115.5 kg Weight 118.5 kg Physical Exam 2 Const: COMMON NORMALS: no acute distress ORIENTATION/CONSCIOUSNESS: Yes awake; not oriented to person, not oriented to place and not oriented to time OTHER: Intubated, sedated, does awaken Eye: COMMON NORMALS: Equal, round and reactive pupils present PUPIL: Yes Equal, round and reactive pupils present Resp: COMMON NORMALS: normal respiratory effort, No retractions and No use of accessory muscles AUSCULTATION: crackles and wheezes Cardio: COMMON NORMALS: regular rate, regular rhythm, S1 normal heart sound present and S2 normal heart sound present RATE: regular rate RHYTHM: r egular rhythm HEART SOUNDS: S1 normal heart sound present and S2 normal heart sound present GI: COMMON NORMALS: Normal to inspection, nondistended, normoactive bowel sounds present and non-tender Neuro: SENSORIUM/ORIENTATION: No oriented to person, No oriented to place and No oriented to time Skin: NARRATIVE SKIN EXAM: 2+ pitting edema, anasarca Urinary Catheter Management: Vuong: Cath Placed During This Visit: yes Reason for Continuing Indwelling Catheter: Accurate Measurement of Urinary Output in Critically Ill Patients Urinary Catheter Date of Insertion: 10/08/24 Urinary Catheter Time of Insertion: 12:00 Data 10/12/24 04:59 10/12/24 04:59 A&P Assessment and plan (1) Acute non-ST elevation myocardial infarction (NSTEMI): (2) Cirrhosis of liver: (3) Respiratory failure with hypoxia: (4) Pleural effusion: (5) Acute hypoxic respiratory failure: (6) Systolic CHF: (7) Congestive heart failure: (8) On mechanically assisted ventilation: (9) Mars Agitation Sedation Scale (RASS) score minus 2, light sedation: Plan Acute hypoxic hypercarbic respiratory failure - Secondary to systolic CHF exacerbation, fluid overload, pulmonary edema, bilateral pleural effusions -Possible pneumonia - Intubated in the field CT/CT angio chest w abd pel w con IMPRESSION: 1. No pulmonary embolism. 2. Large RIGHT pleural effusion with compressive atelectasis of the RIGHT lung. 3. LEFT basilar atelectasis with a very small effusion. 4. Cirrhotic liver. 5. Portosystemic collateral pathways are dilated. 6. Small amount of ascites. 7. No renal obstruction. 8. No GI tract obstruction. 9. Large amount of subcutaneous edema. Plan - Currently intubated - Minimize sedation - Spontaneous breathing trial - Precedex, fentanyl drip for sedation - Propofol for sedation - Minimize FiO2 - Lasix 40 IV twice daily - 1 dose metolazone - Continue Rocephin - Full code - Lovenox for DVT prophylaxis NSTEMI cardiac echo CONCLUSIONS Severely reduced LV systolic function. Estimated LVEF severely reduced at 30%. Severe hypokinesis of mid-distal anterior, apical, anterolateral wall segments. RA and RV normal size and with normal systolic function. Mild mitral regurgitation. Normal RV and pulmonary pressures. Compared to previous echo report from 03/2023, there has been significant change with reduction of LV systolic function - Status post coronary angiography, status post PCI to LAD - Continue aspirin, Plavix Acute systolic CHF as above Liver cirrhosis Full code Lovenox for DVT prophylaxis PDMP PDMP Reviewed: Not Reviewed Attestations 2 Medical Necessity Statement*: Patient requires hospitalization for acute hypoxic respiratory failure NSTEMI, acute systolic CHF, pneumonia, currently intubated Coding Level of Care Code Critical Care >/= 30 minutes Critical care time (in minutes): 45 The high probability of a clinically significant, sudden or life threatening deterioration, as referenced in this documentation, required my full and direct attention, intervention and personal management. The critical care time shown is in addition to time spent performing any reported separately billable procedures and includes the following: [x] Data and vital sign review and interpretation [x ] Patient assessment, examination and intervention [x] Medication orders and management [x] Patient/Family updates as able [x] Care Coordination and Documentation. Diagnoses Acute non-ST elevation myocardial infarction (NSTEMI) I21.4 Cirrhosis of liver K74.60 Ascites presence: without ascites Hepatic cirrhosis type: unspecified hepatic cirrhosis Respiratory failure with hypoxia J96.21 Chronicity: acute on chronic Pleural effusion J90 Acute hypoxic respiratory failure J96.01 Systolic CHF I50.20 Congestive heart failure I50.9 Heart failure chronicity: acute on chronic Heart failure type: unspecified On mechanically assisted ventilation Z99.11 Mars Agitation Sedation Scale (RASS) score minus 2, light sedation Z78.9
[2024-10-12] MEDS: dexmedeTOMIDine 0.9 % NaCL 400 MCG/100 ML PREMIX IV (18:02)
[2024-10-12] MEDS: enoxaparin 40 mg/0.4 mL Syringe SUBCUT (20:34)
[2024-10-12] MEDS: cefTRIAXone 1,000 mg SDV 1000 MG IVP (20:34)
[2024-10-12 21:30] LABS: Glucose Point of Care 105 mg/dL (70-110)
[2024-10-13] VITALS (58 sets, daily range): BP systolic 105–151; BP diastolic 51–90; PULSE 62–90; RESP 10–22; TEMP 36.7–37.6; O2SAT 87–100
[2024-10-13] MEDS: ipratropium-albuterol 3 mL Neb INHALATION ×6 (00:41→19:55)
[2024-10-13] MEDS: fentaNYL 1,000 MCG/100 ML BAG 10 MCG IV (03:01)
[2024-10-13 03:12] LABS: Basophils % 0.4 %; Eosinophils # 0.1 10^3/uL (0.0-0.8); Eosinophils % 0.9 %; Hematocrit 34.1 % (37-53); Lymphocytes # 1.1 10^3/uL (0.8-4.8); Lymphocytes % 19.8 %; Mean Corpuscular HGB Conc 32.6 g/dL (30-55); Mean Corpuscular Hemoglobin 33.5 pg (27-33); Mean Platelet Volume 10.3 fL (7.4-10.4); Monocytes % 18.5 %; Neutrophils % 59.9 %; Nucleated Red Blood Cells % 0 %; Platelet Count 146 10^3/cmm (157-399); Red Blood Count 3.31 10^6/uL (3.85-5.65); White Blood Count 5.51 10^3/uL (3.29-11.43)
[2024-10-13 03:40] LABS: Alanine Aminotransferase 17 U/L (0-41); Albumin Level 2.2 g/dL (3.5-5.2); Alkaline Phosphatase 81 U/L (40-130); Anion Gap 7.5 (5-19); Aspartate Amino Transferase 38 U/L (0-40); Blood Urea Nitrogen 18 mg/dL (8-23); C Reactive Protein 53.7 mg/L (0.0-4.9); Calcium 8.4 mg/dL (8.5-10.5); Carbon Dioxide 38 mmol/L (22-29); Chloride 94 mmol/L (98-107); Globulin 3.5 g/dL (1.3-4.6); Glomerular Filtration Rate 167.4 mL/min (90-130); Glucose 91 mg/dL (65-115); Magnesium 1.8 mg/dL (1.7-2.3); Osmolality Calculated 283 mOsm/kg (285-295); Phosphorus 3.1 mg/dL (2.5-4.5); Potassium 3.5 mmol/L (3.5-5.1); Sodium 136 mmol/L (136-145); Total Bilirubin 1.7 mg/dL (0.15-1.2); Total Protein 5.7 g/dL (6.6-8.7)
[2024-10-13 03:41] LABS: ABG PH Result 7.45 (7.35-7.45); Arterial Blood Gas Hematocrit 31.6 % (42-52); Base Excess ABG 17.1 mmol/L (-2.0-2.0); Blood Gas Allen Test Pos; Blood Gas Operator Identificat SAM; Blood Gas Sample Site Radial, right; Blood Gas Sample Type Arterial; HCO3 ABG 43.8 mmol/L (22-26); Oxygen Device VENT; PO2 ABG 71.6 mmHg (80.0-100.0); PO2 FiO2 Ratio Arterial Blood 143
[2024-10-13 03:43] LABS: NT Pro B Type Natriuretic Pept 679 pg/mL (0-125); Procalcitonin 0.18 ng/mL (0-0.5)
[2024-10-13 03:44] LABS: ABG PCO2 63.6 mmHg (35-45)
[2024-10-13] MEDS: FUROsemide 10 mg/mL SDV 4mL 40 MG IVP ×2 (04:28→16:56)
--- NOTE | 2024-10-13 07:00 | XRR_ITS ---
PROCEDURE INFORMATION: Exam: XR Chest Exam date and time: 10/13/2024 5:51 AM Age: 64 years old Clinical indication: Shortness of breath; Additional info: SOB TECHNIQUE: Imaging protocol: Radiologic exam of the chest. Views: 1 view. COMPARISON: CR XR chest 1V portable [id number] 10/11/2024 5:46 AM FINDINGS: Tubes, catheters and devices: Endotracheal and esophagogastric tubes are unchanged in position. Lungs: Stable probable interstitial edema. Stable right basilar infiltrate or compressive atelectasis. Pleural spaces: Stable [id number] right pleural effusion. Heart/Mediastinum: Unremarkable. No cardiomegaly. Bones/joints: Unremarkable. XR/XR chest 1V portable [id number] IMPRESSION: 1. Stable [id number] right pleural effusion. 2. Stable probable interstitial edema. 3. Stable right basilar infiltrate or compressive atelectasis.
[2024-10-13 07:24] LABS: Glucose Point of Care 83 mg/dL (70-110)
[2024-10-13] MEDS: atorvastatin 40 mg Tablet NG-TUBE (07:31)
[2024-10-13] MEDS: clopidogrel 75 mg Tablet NG-TUBE (07:31)
[2024-10-13] MEDS: aspirin 81 mg Chew Tablet NG-TUBE (07:31)
[2024-10-13] MEDS: carvedilol 6.25 mg Tablet PO ×2 (07:31→18:02)
[2024-10-13] MEDS: budesonide 0.5 mg/2 mL Neb INHALATION ×2 (07:43→19:55)
--- NOTE | 2024-10-13 11:09 | PC.NURSE ---
Patient has voided 1100mL since start of shift. Patient is following commands and breathing on his own. Received Extubation orders from Dr barragan. Nurse attempted to call contacts to give them a status update, person to notify Luigi Benz-son no answer, Primary contact Soraya Hopper no answer.
--- NOTE | 2024-10-13 12:24 | P.PN_ITS ---
<Statement entered by Rd Gr M.D - 10/14/24 09:17> Patient was cared for in conjunction with an advanced practice practitioner.? I personally reviewed the chart and all pertinent data including imaging, telemetry, and laboratory results.? I discussed the patient in detail with the advanced practice practitioner.? Please see? their note for complete progress note, testing results and agreed upon plan of care for the patient. Subjective 2 Subjective: Remains intubated, sedation is turned off and he is on CPAP, FiO2 40%, PEEP 5. He arouses to touch and voice. He received diuresis yesterday with metolazone, put out 5 L yesterday is now 10 L negative. Weight is down by 7 pounds from yesterday. Blood pressure and heart rate are stable. Vitals/I&O/Wt Last Vital Signs Temp 98.1 F 10/13/24 12:00 Pulse 84 10/13/24 12:00 Resp 14 10/13/24 12:00 BP 143/72 10/13/24 12:00 Pulse Ox 97 10/13/24 12:00 O2 Del Method Nasal Cannula 10/13/24 11:00 O2 Flow Rate 45 10/12/24 08:00 FiO2 40 10/13/24 11:05 10/12/24 10/13/24 10/13/24 22:59 06:59 14:59 Intake Total 135.217 / 320.109 47.667 / 320.109 44.333 / 44.333 Output Total 2550 / 5050 2500 / 5050 650 / 650 Balance -2414.783 / -4729.891 -2452.333 / -4729.891 -605.667 / -605.667 Weight last 48 hrs Weight 253 lb 8.505 oz Weight 254 lb 10.142 oz Physical Exam 2 Const: COMMON NORMALS: no acute distress GENERAL APPEARANCE: cooperative and comfortable ORIENTATION/CONSCIOUSNESS: Yes awake and Yes Other orientation findings (Intubated) Chest: COMMONS NORMALS: normal inspection of the chest and normal palpation of entire chest wall CHEST: Yes Symmetrical chest wall rise Resp: COMMON NORMALS: normal respiratory effort, No retractions and No use of accessory muscles EFFORT & INSPECTION: Yes symmetric chest movement A USCULTATION: rhonchi Cardio: COMMON NORMALS: regular rate, regular rhythm, S1 normal heart sound present, S2 normal heart sound present, No gallops present (Cardio), No clicks present (Cardio), No murmurs present (Cardio) and No rub (Cardio) RATE: r egular rate RHYTHM: regular rhythm HEART SOUNDS: S1 normal heart sound present and S2 normal heart sound present PERIPHERAL PULSES: radial pulses present Extremity: GENERAL: Yes edema (1+ pitting edema bilat LE- improved from yesterday) Neuro: COMMON NORMALS: moves all extremities Urinary Catheter Management: Vuong: Cath Placed During This Visit: yes Reason for Continuing Indwelling Catheter: Accurate Measurement of Urinary Output in Critically Ill Patients Urinary Catheter Date of Insertion: 10/08/24 Urinary Catheter Time of Insertion: 12:00 Data 10/13/24 03:03 10/13/24 03:03 Micro: Microbiology 10/08/24 11:57 Blood Culture - Final Blood NO GROWTH AFTER 5 DAYS 10/08/24 12:09 Blood Culture - Final Blood NO GROWTH AFTER 5 DAYS A&P Assessment and plan (1) Acute non-ST elevation myocardial infarction (NSTEMI): (2) Systolic CHF: (3) On mechanically assisted ventilation: Plan Currently undergoing weaning trial for the ventilator. Great diuresis from yesterday. BUN and creatinine normal, potassium 3.5. Continue carvedilol, aspirin, Plavix. Will obtain limited echocardiogram when extubated. PDMP PDMP Reviewed: Not Reviewed Attestations 2 Medical Necessity Statement*: Intubated, post PCI of the LAD, systolic heart failure diuresis and medical management Coding Level of Care Code Acute Code for [facility] Diagnoses Acute non-ST elevation myocardial infarction (NSTEMI) I21.4 Systolic CHF I50.20 On mechanically assisted ventilation Z99.11
--- NOTE | 2024-10-13 17:08 | P.PN_ITS ---
Subjective 2 Subjective: Patient was seen this morning, currently intubated, on minimal sedation he does follow commands, does track, does move bilateral upper lower extremities, discussed spontaneous breathing trial, 45% FiO2, overnight ABG ordered, urine output 5 L, normotensive, afebrile - Patient was reexamined early in the mo rning, remains alert, can follow commands, doing well with a spontaneous breathing trial, has had good urine output this morning over 2 L, patient's family members are at bedside - Discussed with family members extubati on, discussed risks and benefits, risk of reintubation, they voiced understanding, all questions answered, patient and family agrees to proceed - Patient was extubated to 6 L nasal can nula - Patient was reexamined currently on 4 L alert to person, to place, not to time can follow commands, does have a weak cough, does not appear to be in respiratory distress, discussed his hospitalization, he voices understanding, all questions answered he denies smoking, denies any alcohol use, denies any current chest pain or shortness of breath Vitals/I&O/Wt Last Vital Signs Temp 98.1 F 10/13/24 12:00 Pulse 74 10/13/24 15:38 Resp 19 H 10/13/24 15:30 BP 143/72 10/13/24 12:00 Pulse Ox 94 10/13/24 15:30 O2 Del Method Nasal Cannula 10/13/24 15:30 O2 Flow Rate 4 10/13/24 15:30 FiO2 40 10/13/24 11:05 10/13/24 10/13/24 10/13/24 06:59 14:59 22:59 Intake Total 47.667 / 320.109 44.333 / 44.333 Output Total 2500 / 5050 650 / 650 Balance -2452.333 / -4729.891 -605.667 / -605.667 Weight last 48 hrs Weight 115 kg Weight 115.5 kg Physical Exam 2 Const: COMMON NORMALS: no acute distress ORIENTATION/CONSCIOUSNESS: Yes awake, Yes oriented to person and Yes oriented to place; not oriented to time Resp: COMMON NORMALS: normal respiratory effort, No retractions, No use of accessory muscles and clear to auscultation bilaterally AUSCULTATION: clear to auscultation bilaterally Cardio: COMMON NORMALS: regular rate, regular rhythm, S1 normal heart sound present and S2 normal heart sound present RATE: regular rate RHYTHM: r egular rhythm HEART SOUNDS: S1 normal heart sound present and S2 normal heart sound present GI: COMMON NORMALS: Normal to inspection, nondistended, normoactive bowel sounds present and non-tender Extremity: COMMON NORMALS: capillary refill normal, no clubbing, cyanosis or edema and no pedal edema Neuro: SENSORIUM/ORIENTATION: Yes oriented to person, Yes oriented to place and No oriented to time Psych: COMMON NORMALS: mental status grossly normal Urinary Catheter Management: Vuong: Cath Placed During This Visit: yes Reason for Continuing Indwelling Catheter: Accurate Measurement of Urinary Output in Critically Ill Patients Urinary Catheter Date of Insertion: 10/08/24 Urinary Catheter Time of Insertion: 12:00 Data 10/13/24 03:03 10/13/24 03:03 Micro: Microbiology 10/08/24 11:57 Blood Culture - Final Blood NO GROWTH AFTER 5 DAYS 10/08/24 12:09 Blood Culture - Final Blood NO GROWTH AFTER 5 DAYS A&P Assessment and plan (1) Acute non-ST elevation myocardial infarction (NSTEMI): (2) Cirrhosis of liver: (3) Respiratory failure with hypoxia: (4) Pleural effusion: (5) Acute hypoxic respiratory failure: (6) Systolic CHF: (7) Congestive heart failure: (8) On mechanically assisted ventilation: (9) Mars Agitation Sedation Scale (RASS) score minus 2, light sedation: Plan Acute hypoxic hypercarbic respiratory failure - Secondary to systolic CHF exacerbation, fluid overload, pulmonary edema, bilateral pleural effusions -Possible pneumonia - Intubated in the field CT/CT angio chest w abd pel w con IMPRESSION: 1. No pulmonary embolism. 2. Large RIGHT pleural effusion with compressive atelectasis of the RIGHT lung. 3. LEFT basilar atelectasis with a very small effusion. 4. Cirrhotic liver. 5. Portosystemic collateral pathways are dilated. 6. Small amount of ascites. 7. No renal obstruction. 8. No GI tract obstruction. 9. Large amount of subcutaneous edema. - S/p extubation [id number] to 6 L nasal cannula, uses 4 L nasal cannula at home Plan - Currently extubated - BiPAP as needed during the day, scheduled during the night - Lasix 40 IV twice daily - Continue Rocephin -Incentive spirometer, flutter valve -PT OT, speech therapy eval - Full code - Lovenox for DVT prophylaxis NSTEMI cardiac echo CONCLUSIONS Severely reduced LV systolic function. Estimated LVEF severely reduced at 30%. Severe hypokinesis of mid-distal anterior, apical, anterolateral wall segments. RA and RV normal size and with normal systolic function. Mild mitral regurgitation. Normal RV and pulmonary pressures. Compared to previous echo report from 03/2023, there has been significant change with reduction of LV systolic function - Status post coronary angiography, status post PCI to LAD - Continue aspirin, Plavix Acute systolic CHF as above Liver cirrhosis - Patient denies alcoholism Full code Lovenox for DVT prophylaxis PDMP PDMP Reviewed: Not Reviewed Attestations 2 Medical Necessity Statement*: Patient requires hospitalization for acute hypoxic respiratory failure s/p extubation today, NSTEMI, systolic and diastolic CHF Coding Level of Care Code Critical Care >/= 30 minutes Critical care time (in minutes): 50 The high probability of a clinically significant, sudden or life threatening deterioration, as referenced in this documentation, required my full and direct attention, intervention and personal management. The critical care time shown is in addition to time spent performing any reported separately billable procedures and includes the following: [x] Data and vital sign review and interpretation [x ] Patient assessment, examination and intervention [x] Medication orders and management [x] Patient/Family updates as able [x] Care Coordination and Documentation. Diagnoses Acute non-ST elevation myocardial infarction (NSTEMI) I21.4 Cirrhosis of liver K74.60 Ascites presence: without ascites Hepatic cirrhosis type: unspecified hepatic cirrhosis Respiratory failure with hypoxia J96.21 Chronicity: acute on chronic Pleural effusion J90 Acute hypoxic respiratory failure J96.01 Systolic CHF I50.20 Congestive heart failure I50.9 Heart failure chronicity: acute on chronic Heart failure type: unspecified On mechanically assisted ventilation Z99.11 Mars Agitation Sedation Scale (RASS) score minus 2, light sedation Z78.9
[2024-10-13] MEDS: acetaminophen 325 mg Tablet 650 MG PO (17:59)
[2024-10-13] MEDS: neomycin-poly-bacitracin oint 28 gm 1 APPLIC TOPICAL (18:03)
[2024-10-13 18:38] LABS: Vitamin B12 1319 pg/mL (232-1245)
[2024-10-13 18:39] LABS: HIV 1 & 2 Antibody Non-Reactive (Non-Reactiv); HIV 1 & 2 Antigen Non-Reactive (Non-Reactiv)
[2024-10-13 18:47] LABS: Folate Level 5.7 ng/mL (4.5-32.2)
--- NOTE | 2024-10-13 18:52 | PC.NURSE ---
Shift Sumary: Extubated at 1140. Uneventful since. Started on dysphagia level 6 diet, can eat safely but has trouble bringing food to his mouth due to muscle deconditioning. Oriented to person, place, time, and situation. WOrked with physical therapy. Was able to walk to a chair. Triple antibiotic to be applied to ulcer on right shoulder.
[2024-10-13 19:40] LABS: Hepatitis A Antibody IgM Non-Reactive (Nonreactive); Hepatitis B Core IgM Non-Reactive (Nonreactive); Hepatitis B Surface Antigen Non-Reactive (Nonreactive); Hepatitis C Virus Antibody Non-Reactive (Nonreactive)
[2024-10-13] MEDS: enoxaparin 40 mg/0.4 mL Syringe SUBCUT (20:20)
[2024-10-13] MEDS: cefTRIAXone 1,000 mg SDV 1000 MG IVP (20:20)
[2024-10-13 21:16] LABS: Glucose Point of Care 109 mg/dL (70-110)
[2024-10-14] VITALS (40 sets, daily range): BP systolic 103–162; BP diastolic 42–85; PULSE 68–88; RESP 11–27; TEMP 36.3–37.1; O2SAT 85–99; BMI 34.7
[2024-10-14] MEDS: ipratropium-albuterol 3 mL Neb INHALATION ×7 (00:25→23:11)
[2024-10-14] MEDS: FUROsemide 10 mg/mL SDV 4mL 40 MG IVP (03:55)
[2024-10-14 05:18] LABS: Basophils % 0.6 %; Eosinophils % 0.3 %; Hematocrit 35.9 % (37-53); Lymphocytes # 1.4 10^3/uL (0.8-4.8); Lymphocytes % 20.5 %; Mean Corpuscular HGB Conc 33.1 g/dL (30-55); Mean Corpuscular Hemoglobin 33.8 pg (27-33); Mean Platelet Volume 10.3 fL (7.4-10.4); Monocytes # 1.2 10^3/uL (0.2-0.9); Monocytes % 18.7 %; Neutrophils # 3.91 10^3/uL (1.8-7.7); Neutrophils % 59.4 %; Nucleated Red Blood Cells % 0 %; Platelet Count 196 10^3/cmm (157-399); Red Blood Count 3.52 10^6/uL (3.85-5.65); Red Cell Distribution Width 13.6 % (12.1-15.1); White Blood Count 6.58 10^3/uL (3.29-11.43)
[2024-10-14 05:36] LABS: Alanine Aminotransferase 20 U/L (0-41); Albumin Level 2.4 g/dL (3.5-5.2); Alkaline Phosphatase 88 U/L (40-130); Anion Gap 5.1 (5-19); Aspartate Amino Transferase 46 U/L (0-40); Blood Urea Nitrogen 15 mg/dL (8-23); Calcium 8.7 mg/dL (8.5-10.5); Chloride 88 mmol/L (98-107); Creatinine Clr Calc Pharmacy 185.3556; Globulin 3.8 g/dL (1.3-4.6); Glomerular Filtration Rate 167.4 mL/min (90-130); Glucose 102 mg/dL (65-115); Magnesium 1.6 mg/dL (1.7-2.3); Osmolality Calculated 279 mOsm/kg (285-295); Phosphorus 3.2 mg/dL (2.5-4.5); Potassium 3.1 mmol/L (3.5-5.1); Sodium 134 mmol/L (136-145); Total Bilirubin 2.2 mg/dL (0.15-1.2); Total Protein 6.2 g/dL (6.6-8.7)
[2024-10-14 05:43] LABS: NT Pro B Type Natriuretic Pept 650 pg/mL (0-125); Procalcitonin 0.16 ng/mL (0-0.5)
[2024-10-14 06:01] LABS: Carbon Dioxide 44 mmol/L (22-29)
[2024-10-14] MEDS: budesonide 0.5 mg/2 mL Neb INHALATION ×2 (07:33→19:54)
[2024-10-14 07:37] LABS: Glucose Point of Care 81 mg/dL (70-110)
[2024-10-14 07:37] LABS: Glucose Point of Care 112 mg/dL (70-110)
--- NOTE | 2024-10-14 07:52 | USCV_ITS ---
Demar Luigi Age: 64 Gender: M : 1960 Exam Date: 10/14/2024 21:02 Ordering Phys: Selene Dover Technologist: TONE Exam Location: [facility] – [place] Indication: LV dysfunction s/p LAS stent, resp failure BP: 123 / 58 HR: 70 Rhythm: Sinus Technical Quality: Adequate MEASUREMENTS (Male / Female) Normal Values 2D ECHO LV Diastolic Diameter PLAX 5.1 cm 4.2 - 5.9 / 3.9 - 5.3 cm IVS Diastolic Thickness 1.3 cm 0.6 - 1.0 / 0.6 - 0.9 cm IVS Systolic Thickness 1.5 cm LVPW Diastolic Thickness 1.3 cm 0.6 - 1.0 / 0.6 - 0.9 cm LVPW Systolic Thickness 1.6 cm LVOT Diameter 2.2 cm LV Ejection Fraction 2D Teich 47.0 % LV Ejection Fraction MOD 4C 59.7 % LV Ejection Fraction MOD 2C 61.8 % LV Ejection Fraction 2C AL 66.5 % LA Diameter 3.5 cm Aorta at Sinotubular Diameter 2.5 cm IVC Diameter 2.2 cm M-MODE LA Ao Ratio MM 1.4 AV Cusp Separation MM 1.6 cm DOPPLER AV Peak Velocity 184.0 cm/s LVOT Peak Velocity 125.0 cm/s AV Area Cont Eq vti 2.8 cm squared AV Area Cont Eq pk 2.6 cm squared MV Peak Velocity 111.0 cm/s MV Area PHT 2.7 cm squared Mitral E to A Ratio 1.9 TR Peak Velocity 291.0 cm/s TR Peak Gradient 33.9 mmHg TV Peak E Velocity 53.0 cm/s PV Peak Velocity 122.0 cm/s FINDINGS Left Ventricle Normal left ventricular size and systolic function, EF 60%.mild left ventricular hypertrophy. Appears to have calcification around the apical parietal pericardium.Grade III/IV diastolic dysfunction (restrictive filling pattern), severely elevated filling pressures. Right Ventricle The right ventricle is normal in size and function. Right Atrium The right atrium is normal in size. Left Atrium Mildly increased left atrial size. Mitral Valve No gross abnormalities noted Aortic Valve Thickened aortic valve. Aortic valve sclerosis. Tricuspid Valve Mild tricuspid valve regurgitation. Estimated pulmonary artery peak systolic pressure 34 mmHg Pulmonic Valve Pulmonic valve not well visualized. Pericardium No significant pericardial effusion Aorta Normal ascending aorta dimension. IVC Normal inferior vena cava. CONCLUSIONS Normal left ventricular size and systolic function, EF 60%.mild left ventricular hypertrophy. Grade III/IV diastolic dysfunction (restrictive filling pattern), severely elevated filling pressures. Mildly increased left atrial size. Aortic valve sclerosis. Mild tricuspid valve regurgitation. Estimated pulmonary artery peak systolic pressure 34 mmHg. Appears to have calcification around the apical parietal pericardium-may suggest healed inflammatory process There are no intracardiac masses. Compared to the study from 10/08/2024, there is significant improvement in the LV ejection fraction Dr Tray Landin MD [facility] (Electronically Signed) Final Date: 15 Oct 2024 09:03 S
[2024-10-14] MEDS: carvedilol 6.25 mg Tablet PO ×2 (08:40→17:43)
[2024-10-14] MEDS: atorvastatin 40 mg Tablet NG-TUBE (08:40)
[2024-10-14] MEDS: clopidogrel 75 mg Tablet NG-TUBE (08:40)
[2024-10-14] MEDS: aspirin 81 mg Chew Tablet NG-TUBE (08:40)
[2024-10-14] MEDS: thiamine 100 mg Tablet PO (08:40)
[2024-10-14] MEDS: acetaminophen 325 mg Tablet 650 MG PO (08:42)
[2024-10-14] MEDS: neomycin-poly-bacitracin oint 28 gm 1 APPLIC TOPICAL ×2 (08:47→17:44)
--- NOTE | 2024-10-14 08:52 | P.PN_ITS ---
<Statement entered by Rd Gr M.D - 10/19/24 23:10> Patient was cared for in conjunction with an advanced practice practitioner. I reviewed the chart and all pertinent data including imaging, telemetry, and laboratory results. I discussed the patient in detail with the advanced practice practitioner. Please see their note for agreed upon plan of care and results for the patient. Subjective 2 Subjective: He was extubated yesterday, no events overnight. 3 L negative for the last 24 hours, -13 L cumulative. Normal renal function today. Will repeat limited echocardiogram today to update LVEF. No chest pain or shortness of breath present. Currently working with speech pathology on swallow eval. Vitals/I&O/Wt Last Vital Signs Temp 98.4 F 10/14/24 07:30 Pulse 78 10/14/24 07:45 Resp 22 H 10/14/24 07:33 BP 127/62 10/14/24 07:30 Pulse Ox 94 10/14/24 07:33 O2 Del Method BiPAP 10/14/24 07:33 O2 Flow Rate 4 10/14/24 07:30 FiO2 45 10/14/24 07:33 10/13/24 10/14/24 10/14/24 22:59 06:59 14:59 Output Total 2000 / 3800 1150 / 3800 Balance -2000 / -3755.667 -1150 / -3755.667 Weight last 48 hrs Weight 242 lb 8.136 oz Weight 253 lb 8.505 oz Physical Exam 2 Const: COMMON NORMALS: no acute distress and patient oriented x3 GENERAL APPEARANCE: cooperative and comfortable ORIENTATION/CONSCIOUSNESS: Yes awake, Yes oriented to person, Yes oriented to place and Yes oriented to time Chest: COMMONS NORMALS: normal inspection of the chest and normal palpation of entire chest wall CHEST: Yes Symmetrical chest wall rise Resp: COMMON NORMALS: normal respiratory effort, No retractions, No use of accessory muscles and clear to auscultation bilaterally EFFORT & INSPECTION: Yes symmetric chest movement AUSCULTATION: clear to auscultation bilaterally Cardio: COMMON NORMALS: regular rate, regular rhythm, S1 normal heart sound present, S2 normal heart sound present, No gallops present (Cardio), No clicks present (Cardio), No murmurs present (Cardio) and No rub (Cardio) RATE: r egular rate RHYTHM: regular rhythm HEART SOUNDS: S1 normal heart sound present and S2 normal heart sound present PERIPHERAL PULSES: radial pulses present Extremity: GENERAL: Yes edema (1-2+ pitting edema bilat LE/feet) Neuro: COMMON NORMALS: patient oriented x3 and moves all extremities S ENSORIUM/ORIENTATION: Yes oriented to person, Yes oriented to place and Yes oriented to time Urinary Catheter Management: Vuong: Cath Placed During This Visit: yes Reason for Continuing Indwelling Catheter: Accurate Measurement of Urinary Output in Critically Ill Patients Urinary Catheter Date of Insertion: 10/08/24 Urinary Catheter Time of Insertion: 12:00 Data 10/14/24 05:02 10/14/24 05:02 Micro: Microbiology 10/08/24 11:57 Blood Culture - Final Blood NO GROWTH AFTER 5 DAYS 10/08/24 12:09 Blood Culture - Final Blood NO GROWTH AFTER 5 DAYS A&P Assessment and plan (1) Acute non-ST elevation myocardial infarction (NSTEMI): (2) Systolic CHF: Plan He appears to be doing much better, blood pressure and heart rate are stable. S/P PCI of the proximal LAD. Continue aspirin, Plavix, statin, carvedilol. Agree with discontinuing Lasix as he appears euvolemic. Still has chronic venous insufficiency, edema lower extremities. PDMP PDMP Reviewed: Not Reviewed Attestations 2 Medical Necessity Statement*: per hospitalist Coding Level of Care Code Acute Code for [facility] Diagnoses Acute non-ST elevation myocardial infarction (NSTEMI) I21.4 Systolic CHF I50.20
--- NOTE | 2024-10-14 09:06 | PC.NURSE ---
Fentanyl and PRecedex gtts left in pump, wasted today. Witnessed by TOMEKA Herman RN. See MAR
[2024-10-14 11:53] LABS: Glucose Point of Care 108 mg/dL (70-110)
--- NOTE | 2024-10-14 12:41 | P.PN_ITS ---
Subjective 2 Subjective: Patient currently is alert oriented x 2, following all commands, denies any fevers, no chills, has a cough, shortness of breath is improving is on 4 L, edema is improving Vitals/I&O/Wt Last Vital Signs Temp 98.4 F 10/14/24 07:30 Pulse 73 10/14/24 11:27 Resp 20 H 10/14/24 11:27 BP 127/62 10/14/24 10:00 Pulse Ox 96 10/14/24 11:27 O2 Del Method Nasal Cannula 10/14/24 11:27 O2 Flow Rate 4 10/14/24 11:27 FiO2 45 10/14/24 07:33 10/13/24 10/14/24 10/14/24 22:59 06:59 14:59 Intake Total 0 / 0 Output Total 1999 / 2650 1150 / 3800 1750 / 1750 Balance -1999 / -2605.667 -1150 / -3755.667 -1750 / -1750 Weight last 48 hrs Weight 110 kg Weight 115 kg Physical Exam 2 Const: COMMON NORMALS: no acute distress and patient oriented x3 Resp: COMMON NORMALS: normal respiratory effort, No retractions and No use of accessory muscles OTHER: Crackles Cardio: COMMON NORMALS: regular rate, regular rhythm, S1 normal heart sound present and S2 normal heart sound present RATE: regular rate RHYTHM: r egular rhythm HEART SOUNDS: S1 normal heart sound present and S2 normal heart sound present GI: COMMON NORMALS: Normal to inspection, nondistended, normoactive bowel sounds present, Soft to palpation and non-tender PALPATION: Yes Soft to palpation Extremity: NARRATIVE EXTREMITY EXAM: 1+ edema Neuro: COMMON NORMALS: patient oriented x3 Psych: COMMON NORMALS: mental status grossly normal Urinary Catheter Management: Vuong: Cath Placed During This Visit: yes Reason for Continuing Indwelling Catheter: Accurate Measurement of Urinary Output in Critically Ill Patients Urinary Catheter Date of Insertion: 10/08/24 Urinary Catheter Time of Insertion: 12:00 Data 10/14/24 05:02 10/14/24 05:02 Micro: Microbiology 10/08/24 11:57 Blood Culture - Final Blood NO GROWTH AFTER 5 DAYS 10/08/24 12:09 Blood Culture - Final Blood NO GROWTH AFTER 5 DAYS A&P Assessment and plan (1) Acute non-ST elevation myocardial infarction (NSTEMI): (2) Cirrhosis of liver: (3) Respiratory failure with hypoxia: (4) Pleural effusion: (5) Acute hypoxic respiratory failure: (6) Systolic CHF: (7) Congestive heart failure: (8) On mechanically assisted ventilation: (9) Mars Agitation Sedation Scale (RASS) score minus 2, light sedation: Plan Acute hypoxic hypercarbic respiratory failure - Secondary to systolic CHF exacerbation, fluid overload, pulmonary edema, bilateral pleural effusions -Possible pneumonia - Intubated in the field CT/CT angio chest w abd pel w con IMPRESSION: 1. No pulmonary embolism. 2. Large RIGHT pleural effusion with compressive atelectasis of the RIGHT lung. 3. LEFT basilar atelectasis with a very small effusion. 4. Cirrhotic liver. 5. Portosystemic collateral pathways are dilated. 6. Small amount of ascites. 7. No renal obstruction. 8. No GI tract obstruction. 9. Large amount of subcutaneous edema. - S/p extubation [id number] to 6 L nasal cannula, uses 4 L nasal cannula at home Plan - Currently extubated - BiPAP as needed during the day, scheduled during the night - Lasix 40 IV twice daily currently on hold - Continue Rocephin -Incentive spirometer, flutter valve -PT OT, speech therapy eval - Full code - Lovenox for DVT prophylaxis NSTEMI cardiac echo CONCLUSIONS Severely reduced LV systolic function. Estimated LVEF severely reduced at 30%. Severe hypokinesis of mid-distal anterior, apical, anterolateral wall segments. RA and RV normal size and with normal systolic function. Mild mitral regurgitation. Normal RV and pulmonary pressures. Compared to previous echo report from 03/2023, there has been significant change with reduction of LV systolic function - Status post coronary angiography, status post PCI to LAD - Continue aspirin, Plavix Acute systolic CHF as above Liver cirrhosis - Patient denies alcoholism Full code Lovenox for DVT prophylaxis Plan for today PT OT, speech therapy eval, will moved to cardiac stepdown unit, PDMP PDMP Reviewed: Not Reviewed Attestations 2 Medical Necessity Statement*: Patient requires hospitalization for acute hypoxic respiratory failure secondary to systolic CHF, ischemic cardiomyopathy, concerns for pneumonia, NSTEMI Diagnoses Acute non-ST elevation myocardial infarction (NSTEMI) I21.4 Cirrhosis of liver K74.60 Ascites presence: without ascites Hepatic cirrhosis type: unspecified hepatic cirrhosis Respiratory failure with hypoxia J96.21 Chronicity: acute on chronic Pleural effusion J90 Acute hypoxic respiratory failure J96.01 Systolic CHF I50.20 Congestive heart failure I50.9 Heart failure chronicity: acute on chronic Heart failure type: unspecified On mechanically assisted ventilation Z99.11 Mars Agitation Sedation Scale (RASS) score minus 2, light sedation Z78.9
[2024-10-14 17:26] LABS: Glucose Point of Care 105 mg/dL (70-110)
[2024-10-14 17:39] LABS: Glucose Point of Care 117 mg/dL (70-110)
--- NOTE | 2024-10-14 18:05 | PC.NURSE ---
Shift summary: Pt remains using oxygen at 4lpm/NC. He has sat up in chair for majority of shift. He stated to PT this am that he felt better. VSS. Aferile. Sinus rhythm noted on monitor throughout shift. No ectopy. Pt reported back pain this am, acetaminophen admin, no further reports of discomfort. Pt's family here around noon to visit. 2350 ml of urine output noted today. No B noted. Flatulence noted. Pt's conditoin improved enough to transition to CSU status today.
[2024-10-14] MEDS: cefTRIAXone 1,000 mg SDV 1000 MG IVP (20:18)
[2024-10-14] MEDS: enoxaparin 40 mg/0.4 mL Syringe SUBCUT (20:18)
[2024-10-14 20:28] LABS: Glucose Point of Care 137 mg/dL (70-110)
[2024-10-15] VITALS (30 sets, daily range): BP systolic 101–143; BP diastolic 47–86; PULSE 69–97; RESP 15–24; TEMP 36.6–37.1; O2SAT 90–97
[2024-10-15] MEDS: ipratropium-albuterol 3 mL Neb INHALATION ×5 (03:28→20:15)
[2024-10-15 04:00] LABS: Basophils % 0.8 %; Eosinophils # 0.2 10^3/uL (0.0-0.8); Eosinophils % 3.6 %; Hematocrit 34.4 % (37-53); Lymphocytes # 1.1 10^3/uL (0.8-4.8); Lymphocytes % 21.2 %; Mean Corpuscular HGB Conc 33.1 g/dL (30-55); Mean Corpuscular Hemoglobin 33.5 pg (27-33); Mean Corpuscular Volume 101.2 fl (82-101); Mean Platelet Volume 10.3 fL (7.4-10.4); Monocytes % 19.2 %; Neutrophils # 2.75 10^3/uL (1.8-7.7); Neutrophils % 54.6 %; Nucleated Red Blood Cells % 0 %; Platelet Count 181 10^3/cmm (157-399); Red Cell Distribution Width 13.3 % (12.1-15.1); White Blood Count 5.04 10^3/uL (3.29-11.43)
[2024-10-15 04:25] LABS: Alanine Aminotransferase 21 U/L (0-41); Albumin Level 2.3 g/dL (3.5-5.2); Alkaline Phosphatase 88 U/L (40-130); Anion Gap 2.1 (5-19); Aspartate Amino Transferase 50 U/L (0-40); Blood Urea Nitrogen 14 mg/dL (8-23); C Reactive Protein 40.6 mg/L (0.0-4.9); Calcium 8.6 mg/dL (8.5-10.5); Chloride 89 mmol/L (98-107); Creatinine Clr Calc Pharmacy 231.6944; Globulin 3.6 g/dL (1.3-4.6); Glomerular Filtration Rate 216.6 mL/min (90-130); Glucose 106 mg/dL (65-115); Magnesium 1.7 mg/dL (1.7-2.3); Osmolality Calculated 281 mOsm/kg (285-295); Phosphorus 2.7 mg/dL (2.5-4.5); Potassium 3.1 mmol/L (3.5-5.1); Sodium 135 mmol/L (136-145); Total Bilirubin 1.8 mg/dL (0.15-1.2); Total Protein 5.9 g/dL (6.6-8.7)
[2024-10-15 04:29] LABS: NT Pro B Type Natriuretic Pept 504 pg/mL (0-125); Procalcitonin 0.13 ng/mL (0-0.5)
[2024-10-15 04:47] LABS: Carbon Dioxide 47 mmol/L (22-29)
[2024-10-15] MEDS: budesonide 0.5 mg/2 mL Neb INHALATION ×2 (07:44→20:15)
[2024-10-15 08:34] LABS: Glucose Point of Care 106 mg/dL (70-110)
[2024-10-15] MEDS: carvedilol 6.25 mg Tablet PO ×2 (09:18→17:18)
[2024-10-15] MEDS: clopidogrel 75 mg Tablet PO (09:18)
[2024-10-15] MEDS: thiamine 100 mg Tablet PO (09:18)
[2024-10-15] MEDS: aspirin 81 mg Chew Tablet PO (09:18)
[2024-10-15] MEDS: atorvastatin 40 mg Tablet NG-TUBE (09:18)
[2024-10-15] MEDS: potassium phosphate (mEq K) 40 MEQ in sodium chloride 0.9% (100 ml) 100 ML 27.25 MEQ IV (09:19)
[2024-10-15] MEDS: neomycin-poly-bacitracin oint 28 gm 1 APPLIC TOPICAL ×2 (09:19→17:18)
--- NOTE | 2024-10-15 10:26 | P.PN_ITS ---
<Statement entered by Honey Pickens MD - 10/15/24 18:25> Patient was evaluated and cared for in conjunction with an advanced practice practitioner. I personally examined the patient and reviewed the chart and all pertinent data including imaging, telemetry, and laboratory results. I discussed the patient in detail with the advanced practice practitioner. Please see their note for complete H&P testing result and agreed upon plan of care for the patient. Creatinine has improved Overall feeling better Denies any chest pain GENERAL: Patient is alert, awake and oriented x3. HEART: Regular S1 and S2. No murmur, rub or gallop. LUNGS: Clear to auscultate bilaterally. CENTRAL NERVOUS SYSTEM: Grossly nonfocal. EXTREMITIES: Lower extremities with out edema bilaterally. Abnormal stress Coronary artery disease Acute on chronic kidney disease Bradycardia No significant heart block noted occasionally patient drops down into high 30s and low 40s during sleep while awake most of the time he remains high of 40s to 50s denies any dizziness or fainting. Has walked around creatinine has improved Continue aspirin statin Plavix continue amlodipine Follow-up with cardiology nurse practitioner in 1 week Event monitor as an outpatient for bradycardia Possible treadmill stress test for chronotropic competence in 6 to 12 weeks Subjective 2 Subjective: No events overnight. No chest pain or shortness of breath this morning. Lasix has been on hold since yesterday morning, will restart at 40 mg PO daily. Renal function normal. Limited echocardiogram performed yesterday shows LVEF 60%, grade 3/4 diastolic dysfunction, no need for Entresto at this time. S/P PCI of the proximal LAD. Continue carvedilol, atorvastatin, aspirin, Plavix. Replace potassium, 3.1 this morning. He appears euvolemic, -1900 mL for the last 24 hours, -15 L cumulative. Vitals/I&O/Wt Last Vital Signs Temp 97.8 F 10/15/24 00:00 Pulse 77 10/15/24 07:48 Resp 16 10/15/24 07:48 BP 118/56 10/15/24 05:54 Pulse Ox 97 10/15/24 07:48 O2 Del Method BiPAP 10/15/24 07:48 O2 Flow Rate 5 10/15/24 00:00 FiO2 45 10/15/24 07:48 10/14/24 10/15/24 10/15/24 22:59 06:59 14:59 Intake Total 660 / 1010 0 / 1010 Output Total 750 / 3000 500 / 3000 Balance - / -1989 - / Weight last 48 hrs Weight 239 lb 8 oz Weight 242 lb 8.136 oz Physical Exam 2 Const: COMMON NORMALS: no acute distress and patient oriented x3 GENERAL APPEARANCE: cooperative and comfortable ORIENTATION/CONSCIOUSNESS: Yes awake, Yes oriented to person, Yes oriented to place and Yes oriented to time Chest: COMMONS NORMALS: normal inspection of the chest and normal palpation of entire chest wall CHEST: Yes Symmetrical chest wall rise Resp: COMMON NORMALS: normal respiratory effort, No retractions, No use of accessory muscles and clear to auscultation bilaterally EFFORT & INSPECTION: Yes symmetric chest movement AUSCULTATION: clear to auscultation bilaterally Cardio: COMMON NORMALS: regular rate, regular rhythm, S1 normal heart sound present, S2 normal heart sound present, No gallops present (Cardio), No clicks present (Cardio), No murmurs present (Cardio) and No rub (Cardio) RATE: r egular rate RHYTHM: regular rhythm HEART SOUNDS: S1 normal heart sound present and S2 normal heart sound present PERIPHERAL PULSES: radial pulses present Extremity: GENERAL: Yes edema (1+ pitting LE edema bilat ) Neuro: COMMON NORMALS: patient oriented x3 and moves all extremities S ENSORIUM/ORIENTATION: Yes oriented to person, Yes oriented to place and Yes oriented to time Urinary Catheter Management: Vuong: Cath Placed During This Visit: yes Reason for Continuing Indwelling Catheter: Acute Urinary Retention or Obstruction Urinary Catheter Date of Insertion: 10/08/24 Urinary Catheter Time of Insertion: 12:00 Data 10/15/24 03:35 10/15/24 03:35 A&P Assessment and plan (1) Acute non-ST elevation myocardial infarction (NSTEMI): (2) Congestive heart failure: Plan S/P PCI of the LAD, LV function has returned to normal however still has severely elevated filling pressures. Continue Lasix 40 mg daily. Blood pressures and heart rate stable. He is ambulating around the room. PDMP PDMP Reviewed: Not Reviewed Attestations 2 Medical Necessity Statement*: per hospitalist Coding Level of Care Code Acute Code for [facility] Diagnoses Acute non-ST elevation myocardial infarction (NSTEMI) I21.4 Congestive heart failure I50.9 Heart failure chronicity: acute on chronic Heart failure type: unspecified
[2024-10-15 11:56] LABS: Glucose Point of Care 117 mg/dL (70-110)
--- NOTE | 2024-10-15 14:16 | P.PN_ITS ---
Subjective 2 Subjective: Patient was seen this morning, sitting up in a chair, denies chest pain, no shortness of breath Vitals/I&O/Wt Last Vital Signs Temp 98.7 F 10/15/24 07:00 Pulse 79 10/15/24 12:00 Resp 18 10/15/24 12:00 BP 120/62 10/15/24 12:00 Pulse Ox 90 10/15/24 12:00 O2 Del Method Room Air 10/15/24 12:00 O2 Flow Rate 4 10/15/24 12:00 FiO2 45 10/15/24 07:48 10/14/24 10/15/24 10/15/24 22:59 06:59 14:59 Intake Total 660 / 1010 0 / 1010 450 / 450 Output Total 750 / 2500 500 / 3000 Balance -90 / -1490 -500 / -1990 450 / 450 Weight last 48 hrs Weight 108.635 kg Weight 110 kg Physical Exam 2 Const: COMMON NORMALS: no acute distress and patient oriented x3 Resp: COMMON NORMALS: normal respiratory effort, No retractions, No use of accessory muscles and clear to auscultation bilaterally AUSCULTATION: clear to auscultation bilaterally Cardio: COMMON NORMALS: regular rate, regular rhythm, S1 normal heart sound present and S2 normal heart sound present RATE: regular rate RHYTHM: r egular rhythm HEART SOUNDS: S1 normal heart sound present and S2 normal heart sound present GI: COMMON NORMALS: Normal to inspection, nondistended, normoactive bowel sounds present and non-tender Extremity: COMMON NORMALS: no pedal edema Neuro: COMMON NORMALS: patient oriented x3 Psych: COMMON NORMALS: mental status grossly normal Urinary Catheter Management: Vuong: Cath Placed During This Visit: yes Reason for Continuing Indwelling Catheter: Acute Urinary Retention or Obstruction Urinary Catheter Date of Insertion: 10/08/24 Urinary Catheter Time of Insertion: 12:00 Data 10/15/24 03:35 10/15/24 03:35 A&P Assessment and plan (1) Acute non-ST elevation myocardial infarction (NSTEMI): (2) Cirrhosis of liver: (3) Respiratory failure with hypoxia: (4) Pleural effusion: (5) Acute hypoxic respiratory failure: (6) Systolic CHF: (7) Congestive heart failure: (8) On mechanically assisted ventilation: (9) Mars Agitation Sedation Scale (RASS) score minus 2, light sedation: Plan Acute hypoxic hypercarbic respiratory failure - Secondary to systolic CHF exacerbation, fluid overload, pulmonary edema, bilateral pleural effusions -Possible pneumonia - Intubated in the field CT/CT angio chest w abd pel w con IMPRESSION: 1. No pulmonary embolism. 2. Large RIGHT pleural effusion with compressive atelectasis of the RIGHT lung. 3. LEFT basilar atelectasis with a very small effusion. 4. Cirrhotic liver. 5. Portosystemic collateral pathways are dilated. 6. Small amount of ascites. 7. No renal obstruction. 8. No GI tract obstruction. 9. Large amount of subcutaneous edema. - S/p extubation 521 2024 to 6 L nasal cannula, uses 4 L nasal cannula at home Plan - Currently extubated - BiPAP as needed during the day, scheduled during the night as needed, will order overnight pulse ox - appears euvolemic, hold lasix for today, will switch to po tomorrow - Continue Rocephin -Incentive spirometer, flutter valve -PT OT, speech therapy eval - Full code - Lovenox for DVT prophylaxis NSTEMI cardiac echo CONCLUSIONS Severely reduced LV systolic function. Estimated LVEF severely reduced at 30%. Severe hypokinesis of mid-distal anterior, apical, anterolateral wall segments. RA and RV normal size and with normal systolic function. Mild mitral regurgitation. Normal RV and pulmonary pressures. Compared to previous echo report from 03/2023, there has been significant change with reduction of LV systolic function - Status post coronary angiography, status post PCI to LAD - Continue aspirin, Plavix Acute systolic CHF as above Liver cirrhosis - Patient denies alcoholism Full code Lovenox for DVT prophylaxis Plan for today PT OT, speech therapy eval, will moved to cardiac stepdown unit, PDMP PDMP Reviewed: Not Reviewed Attestations 2 Medical Necessity Statement*: patient requires hospitalization for chf, nstemi Diagnoses Acute non-ST elevation myocardial infarction (NSTEMI) I21.4 Cirrhosis of liver K74.60 Ascites presence: without ascites Hepatic cirrhosis type: unspecified hepatic cirrhosis Respiratory failure with hypoxia J96.21 Chronicity: acute on chronic Pleural effusion J90 Acute hypoxic respiratory failure J96.01 Systolic CHF I50.20 Congestive heart failure I50.9 Heart failure chronicity: acute on chronic Heart failure type: unspecified On mechanically assisted ventilation Z99.11 Mars Agitation Sedation Scale (RASS) score minus 2, light sedation Z78.9
--- NOTE | 2024-10-15 18:14 | PC.NURSE ---
Shift summary: Pt got out of bed for breakfast this am. He sat up in chair until 1330. He had a good rest with his eyes closed this afternoon. His potassium level low this am, Potassium phosphate replacement admin IV. He stated he felt more tired this am than yesterday, (this was prior to potassium infusion completed.) He is eager and cooperative with the therapies. Sinus rhythm noted on monitor. He remains on 4lpm/NC. Afebrile. Urinary output of 900 ml this shift NO BM . Bilat lower leg edema at 2-3+ today. No reports of pain.
[2024-10-15] MEDS: enoxaparin 40 mg/0.4 mL Syringe SUBCUT (19:25)
[2024-10-15] MEDS: cefTRIAXone 1,000 mg SDV 1000 MG IVP (19:25)
[2024-10-16] VITALS (35 sets, daily range): BP systolic 98–126; BP diastolic 52–64; PULSE 68–79; RESP 13–24; TEMP 36.4–37.2; O2SAT 88–98
[2024-10-16] MEDS: ipratropium-albuterol 3 mL Neb INHALATION ×6 (04:23→23:25)
[2024-10-16 05:05] LABS: Basophils % 0.8 %; Eosinophils % 0.2 %; Hematocrit 33.6 % (37-53); Lymphocytes # 1.3 10^3/uL (0.8-4.8); Lymphocytes % 25.1 %; Mean Corpuscular HGB Conc 32.7 g/dL (30-55); Mean Corpuscular Hemoglobin 33.3 pg (27-33); Mean Corpuscular Volume 101.8 fl (82-101); Mean Platelet Volume 10.4 fL (7.4-10.4); Monocytes % 19.5 %; Neutrophils # 2.78 10^3/uL (1.8-7.7); Nucleated Red Blood Cells % 0 %; Platelet Count 188 10^3/cmm (157-399); Red Cell Distribution Width 13.4 % (12.1-15.1); White Blood Count 5.14 10^3/uL (3.29-11.43)
[2024-10-16 05:28] LABS: Alanine Aminotransferase 22 U/L (0-41); Albumin Level 2.2 g/dL (3.5-5.2); Alkaline Phosphatase 80 U/L (40-130); Aspartate Amino Transferase 52 U/L (0-40); Blood Urea Nitrogen 11 mg/dL (8-23); Calcium 8.3 mg/dL (8.5-10.5); Chloride 92 mmol/L (98-107); Creatinine Clr Calc Pharmacy 306.4939; Globulin 3.5 g/dL (1.3-4.6); Glomerular Filtration Rate 301.8 mL/min (90-130); Glucose 94 mg/dL (65-115); Osmolality Calculated 283 mOsm/kg (285-295); Sodium 137 mmol/L (136-145); Total Bilirubin 1.8 mg/dL (0.15-1.2); Total Protein 5.7 g/dL (6.6-8.7)
[2024-10-16 05:33] LABS: NT Pro B Type Natriuretic Pept 686 pg/mL (0-125)
[2024-10-16 05:35] LABS: Carbon Dioxide 41 mmol/L (22-29)
[2024-10-16] MEDS: budesonide 0.5 mg/2 mL Neb INHALATION ×2 (08:00→19:30)
[2024-10-16] MEDS: thiamine 100 mg Tablet PO (08:18)
[2024-10-16] MEDS: clopidogrel 75 mg Tablet PO (08:18)
[2024-10-16] MEDS: atorvastatin 40 mg Tablet NG-TUBE (08:18)
[2024-10-16] MEDS: aspirin 81 mg Chew Tablet PO (08:19)
[2024-10-16] MEDS: carvedilol 6.25 mg Tablet PO ×2 (08:19→17:32)
[2024-10-16] MEDS: potassium chloride ER 20 mEq Tablet 40 MEQ PO (09:08)
[2024-10-16] MEDS: neomycin-poly-bacitracin oint 28 gm 1 APPLIC TOPICAL ×2 (09:08→17:32)
[2024-10-16] MEDS: FUROsemide 10 mg/mL SDV 4mL 40 MG IVP ×2 (11:10→22:37)
--- NOTE | 2024-10-16 13:16 | P.PN_ITS ---
Subjective 2 Subjective: Patient is sitting on the chair he is a little more short of breath somehow he was not able to be switched back to the Lasix that I was told Medications: Reviewed: Yes Medication Review Details: Detail medication reviewed. Vitals/I&O/Wt Last Vital Signs Temp 98.8 F 10/16/24 12:00 Pulse 74 10/16/24 12:00 Resp 20 H 10/16/24 12:00 BP 118/64 10/16/24 12:00 Pulse Ox 93 10/16/24 12:00 O2 Del Method Nasal Cannula 10/16/24 12:00 O2 Flow Rate 4 10/16/24 12:00 FiO2 45 10/15/24 07:48 10/15/24 10/16/24 10/16/24 22:59 06:59 14:59 Intake Total 250 / 1159.0909 500 / 500 Output Total 900 / 900 700 / 1600 Balance -650 / 259.0909 -700 / -440.9091 500 / 500 Weight last 48 hrs Weight 238 lb 11.2 oz Weight 239 lb 8 oz Physical Exam 2 Const: OTHER: GENERAL: Patient is alert, awake and oriented x3. HEART: Regular S1 and S2. No murmur, rub or gallop. LUNGS: Decreased breath sounds bilaterally. CENTRAL NERVOUS SYSTEM: Grossly nonfocal. EXTREMITIES: Lower extremities with 2+ edema bilaterally. Urinary Catheter Management: Vuong: Cath Placed During This Visit: yes Reason for Continuing Indwelling Catheter: Acute Urinary Retention or Obstruction Urinary Catheter Date of Insertion: 10/08/24 Urinary Catheter Time of Insertion: 12:00 Data 10/16/24 04:41 10/16/24 04:41 A&P Assessment and plan (1) Acute non-ST elevation myocardial infarction (NSTEMI): (2) Congestive heart failure: Plan Status post PCI, continue dual antiplatelet therapy For acute decompensated systolic heart failure continue IV Lasix 40 mg twice daily and switch to 40 mg p.o. twice daily from tomorrow Add Entresto Continue beta-mak Cardiovascular perspective patient can be transferred to [facility]SU PDMP PDMP Reviewed: Not Reviewed Attestations 2 Medical Necessity Statement*: Require continuation hospitalization for above defined care Coding Level of Care Code Acute Code for [facility] Diagnoses Acute non-ST elevation myocardial infarction (NSTEMI) I21.4 Congestive heart failure I50.9 Heart failure chronicity: acute on chronic Heart failure type: unspecified
--- NOTE | 2024-10-16 14:21 | P.PN_ITS ---
Subjective 2 Subjective: Patient was seen this morning, sitting up in a chair, denies any fevers, no chills, no cough, does report some shortness of breath with exertion, no chest pain Vitals/I&O/Wt Last Vital Signs Temp 98.8 F 10/16/24 12:00 Pulse 74 10/16/24 12:00 Resp 20 H 10/16/24 12:00 BP 118/64 10/16/24 12:00 Pulse Ox 93 10/16/24 12:00 O2 Del Method Nasal Cannula 10/16/24 12:00 O2 Flow Rate 4 10/16/24 12:00 FiO2 45 10/15/24 07:48 10/15/24 10/16/24 10/16/24 22:59 06:59 14:59 Intake Total 250 / 1159.0909 500 / 500 Output Total 900 / 900 700 / 1600 Balance -650 / 259.0909 -700 / -440.9091 500 / 500 Weight last 48 hrs Weight 108.272 kg Weight 108.635 kg Physical Exam 2 Const: COMMON NORMALS: no acute distress and patient oriented x3 Resp: COMMON NORMALS: normal respiratory effort, No retractions, No use of accessory muscles and clear to auscultation bilaterally AUSCULTATION: clear to auscultation bilaterally Cardio: COMMON NORMALS: regular rate, regular rhythm, S1 normal heart sound present and S2 normal heart sound present RATE: regular rate RHYTHM: r egular rhythm HEART SOUNDS: S1 normal heart sound present and S2 normal heart sound present GI: COMMON NORMALS: Normal to inspection, nondistended, normoactive bowel sounds present and non-tender Extremity: NARRATIVE EXTREMITY EXAM: 1+ edema Neuro: COMMON NORMALS: patient oriented x3 Psych: COMMON NORMALS: mental status grossly normal Urinary Catheter Management: Vuong: Cath Placed During This Visit: yes Reason for Continuing Indwelling Catheter: Acute Urinary Retention or Obstruction Urinary Catheter Date of Insertion: 10/08/24 Urinary Catheter Time of Insertion: 12:00 Data 10/16/24 04:41 10/16/24 04:41 A&P Assessment and plan (1) Acute non-ST elevation myocardial infarction (NSTEMI): (2) Cirrhosis of liver: (3) Respiratory failure with hypoxia: (4) Pleural effusion: (5) Acute hypoxic respiratory failure: (6) Systolic CHF: (7) Congestive heart failure: (8) On mechanically assisted ventilation: (9) Mars Agitation Sedation Scale (RASS) score minus 2, light sedation: Plan Acute hypoxic hypercarbic respiratory failure - Secondary to systolic CHF exacerbation, fluid overload, pulmonary edema, bilateral pleural effusions -Possible pneumonia - Intubated in the field CT/CT angio chest w abd pel w con IMPRESSION: 1. No pulmonary embolism. 2. Large RIGHT pleural effusion with compressive atelectasis of the RIGHT lung. 3. LEFT basilar atelectasis with a very small effusion. 4. Cirrhotic liver. 5. Portosystemic collateral pathways are dilated. 6. Small amount of ascites. 7. No renal obstruction. 8. No GI tract obstruction. 9. Large amount of subcutaneous edema. - S/p extubation 521 2024 to 6 L nasal cannula, uses 4 L nasal cannula at home Plan - Currently extubated - BiPAP as needed during the day, scheduled during the night as needed, will order overnight pulse ox - Lasix to be resumed today 40 IV twice daily - Continue Rocephin -Incentive spirometer, flutter valve -PT OT, speech therapy eval - Full code - Lovenox for DVT prophylaxis NSTEMI cardiac echo CONCLUSIONS Severely reduced LV systolic function. Estimated LVEF severely reduced at 30%. Severe hypokinesis of mid-distal anterior, apical, anterolateral wall segments. RA and RV normal size and with normal systolic function. Mild mitral regurgitation. Normal RV and pulmonary pressures. Compared to previous echo report from 03/2023, there has been significant change with reduction of LV systolic function - Status post coronary angiography, status post PCI to LAD - Continue aspirin, Plavix Acute systolic CHF as above Liver cirrhosis - Patient denies alcoholism Full code Lovenox for DVT prophylaxis Plan for today PT OT, speech therapy eval, will moved to cardiac stepdown unit, IV Lasix PDMP PDMP Reviewed: Not Reviewed Attestations 2 Medical Necessity Statement*: Patient requires hospitalization for CHF exacerbation, NSTEMI Diagnoses Acute non-ST elevation myocardial infarction (NSTEMI) I21.4 Cirrhosis of liver K74.60 Ascites presence: without ascites Hepatic cirrhosis type: unspecified hepatic cirrhosis Respiratory failure with hypoxia J96.21 Chronicity: acute on chronic Pleural effusion J90 Acute hypoxic respiratory failure J96.01 Systolic CHF I50.20 Congestive heart failure I50.9 Heart failure chronicity: acute on chronic Heart failure type: unspecified On mechanically assisted ventilation Z99.11 Mars Agitation Sedation Scale (RASS) score minus 2, light sedation Z78.9
--- NOTE | 2024-10-16 15:16 | PC.NURSE ---
Report given to PRATEEK Fong.
--- NOTE | 2024-10-16 15:57 | PC.NURSE ---
Transferred to [facility] room 107 via wheelchair, v/s remain stable, tolerated well.
[2024-10-16] MEDS: sacubitril/valsartan 24-26 mg Tablet 1 EACH PO (17:32)
[2024-10-16] MEDS: enoxaparin 40 mg/0.4 mL Syringe SUBCUT (20:30)
[2024-10-17] VITALS (17 sets, daily range): BP systolic 92–109; BP diastolic 46–61; PULSE 64–73; RESP 16–25; TEMP 36.4–36.7; O2SAT 93–99
[2024-10-17 04:03] LABS: Basophils # 0.1 10^3/uL (0.0-0.1); Basophils % 0.9 %; Eosinophils # 0.2 10^3/uL (0.0-0.8); Eosinophils % 3.2 %; Hematocrit 33.3 % (37-53); Lymphocytes # 1.5 10^3/uL (0.8-4.8); Lymphocytes % 26.8 %; Mean Corpuscular HGB Conc 32.1 g/dL (30-55); Mean Corpuscular Hemoglobin 32.8 pg (27-33); Mean Corpuscular Volume 102.1 fl (82-101); Mean Platelet Volume 10.8 fL (7.4-10.4); Monocytes # 1.1 10^3/uL (0.2-0.9); Monocytes % 19.7 %; Neutrophils # 2.74 10^3/uL (1.8-7.7); Nucleated Red Blood Cells % 0 %; Platelet Count 155 10^3/cmm (157-399); Red Blood Count 3.26 10^6/uL (3.85-5.65); Red Cell Distribution Width 13.2 % (12.1-15.1); White Blood Count 5.59 10^3/uL (3.29-11.43)
[2024-10-17] MEDS: ipratropium-albuterol 3 mL Neb INHALATION ×6 (04:13→23:23)
[2024-10-17 04:28] LABS: Alanine Aminotransferase 22 U/L (0-41); Albumin Level 2.1 g/dL (3.5-5.2); Alkaline Phosphatase 78 U/L (40-130); Aspartate Amino Transferase 56 U/L (0-40); Blood Urea Nitrogen 13 mg/dL (8-23); Calcium 8.2 mg/dL (8.5-10.5); Chloride 91 mmol/L (98-107); Creatinine Clr Calc Pharmacy 229.2962; Globulin 3.4 g/dL (1.3-4.6); Glomerular Filtration Rate 216.6 mL/min (90-130); Glucose 82 mg/dL (65-115); NT Pro B Type Natriuretic Pept 746 pg/mL (0-125); Osmolality Calculated 283 mOsm/kg (285-295); Sodium 137 mmol/L (136-145); Total Bilirubin 1.7 mg/dL (0.15-1.2); Total Protein 5.5 g/dL (6.6-8.7)
[2024-10-17 04:31] LABS: Carbon Dioxide 42 mmol/L (22-29)
[2024-10-17] MEDS: budesonide 0.5 mg/2 mL Neb INHALATION ×2 (07:41→20:26)
[2024-10-17] MEDS: lidocaine 1% 5 ML in potassium chloride premix 100 ML 52.5 ML IV (08:57)
[2024-10-17] MEDS: sacubitril/valsartan 24-26 mg Tablet 1 EACH PO ×2 (08:59→18:22)
[2024-10-17] MEDS: atorvastatin 40 mg Tablet NG-TUBE (08:59)
[2024-10-17] MEDS: clopidogrel 75 mg Tablet PO (09:00)
[2024-10-17] MEDS: carvedilol 6.25 mg Tablet PO ×2 (09:00→18:22)
[2024-10-17] MEDS: potassium chloride ER 20 mEq Tablet 40 MEQ PO (09:00)
[2024-10-17] MEDS: thiamine 100 mg Tablet PO (09:00)
[2024-10-17] MEDS: acetaminophen 325 mg Tablet 650 MG PO (09:08)
[2024-10-17] MEDS: aspirin 81 mg Chew Tablet PO (09:09)
[2024-10-17] MEDS: FUROsemide 10 mg/mL SDV 4mL 40 MG IVP (11:13)
[2024-10-17] MEDS: neomycin-poly-bacitracin oint 28 gm 1 APPLIC TOPICAL ×2 (11:15→18:22)
--- NOTE | 2024-10-17 14:25 | ECG_ITS ---
[email or web address] Test Date: 2024-10-17 Pat Name: Luigi Benz Department: Room: 107 Gender: Male [employer]: : 1960 Requested By: Jeovanny Casillas Order Number: [id number] Jem MD: JUSTIN SIBLEY Measurements Intervals [place] Rate: 70 P: 58 NM: 123 QRS: 62 QRSD: 110 T: 154 QT: 431 QTc: 466 Interpretive Statements SINUS RHYTHM MODERATE T-WAVE ABNORMALITY, CONSIDER ANTEROLATERAL ISCHEMIA [-0.1+ mV T-WAVE IN V3-V6] Compared to ECG 10/08/2024 17:53:50 T-wave abnormality now present Possible ischemia now present Electronically Signed On 10-18-2024 19:07:51 CDT by JUSTIN SIBLEY [email or web address]
--- NOTE | 2024-10-17 14:27 | P.PN_ITS ---
Subjective 2 Subjective: Patient is feeling better today Medications: Reviewed: Yes Medication Review Details: Detail medication reviewed. Vitals/I&O/Wt Last Vital Signs Temp 98.1 F 10/17/24 07:00 Pulse 68 10/17/24 11:32 Resp 18 10/17/24 11:24 BP 100/53 10/17/24 11:00 Pulse Ox 95 10/17/24 11:24 O2 Del Method Nasal Cannula 10/17/24 11:24 O2 Flow Rate 4 10/17/24 11:24 FiO2 45 10/15/24 07:48 10/16/24 10/17/24 10/17/24 22:59 06:59 14:59 Intake Total 720 / 1620 345 / 345 Output Total 1600 / 1600 200 / 1800 Balance -880 / 20 -200 / -180 345 / 345 Weight last 48 hrs Weight 237 lb 8 oz Weight 238 lb 11.2 oz Physical Exam 2 Const: OTHER: GENERAL: Patient is alert, awake and oriented x3. HEART: Regular S1 and S2. No murmur, rub or gallop. LUNGS: Clear to auscultate bilaterally. CENTRAL NERVOUS SYSTEM: Grossly nonfocal. EXTREMITIES: Lower extremities with out edema bilaterally. Urinary Catheter Management: Vuong: Cath Placed During This Visit: yes Reason for Continuing Indwelling Catheter: Accurate Measurement of Urinary Output in Critically Ill Patients Urinary Catheter Date of Insertion: 10/08/24 Urinary Catheter Time of Insertion: 12:00 Data 10/17/24 02:03 10/17/24 02:03 A&P Assessment and plan (1) Acute non-ST elevation myocardial infarction (NSTEMI): (2) Congestive heart failure: Plan Continue dual antiplatelet therapy Continue IV Lasix 40 mg twice daily continue Entresto Will switch patient to p.o. Lasix tomorrow with possibility of discharge, consider LifeVest. PDMP PDMP Reviewed: Not Reviewed Attestations 2 Medical Necessity Statement*: Patient require continuation hospitalization for decompensated systolic heart failure post PCI Coding Level of Care Code Acute Code for [facility] Diagnoses Acute non-ST elevation myocardial infarction (NSTEMI) I21.4 Congestive heart failure I50.9 Heart failure chronicity: acute on chronic Heart failure type: unspecified
--- NOTE | 2024-10-17 16:20 | PC.NURSE ---
per Dr Avila, patient to stay Friday night to watch for soft blood pressures. [facility] ready to accept patient whenever we are ready. Mark's phone number is [phone]
[2024-10-17] MEDS: potassium chloride ER 20 mEq Tablet PO (18:21)
--- NOTE | 2024-10-17 18:26 | P.PN_ITS ---
Subjective 2 Subjective: Patient was seen this morning, currently alert oriented x 3, following all commands, shortness of breath is improving, discussed plans on de-escalating of IV Lasix, to p.o. Lasix removing Vuong catheter, plan on discharging in the next 24 to 48 hours,, he is in agreement Vitals/I&O/Wt Last Vital Signs Temp 97.6 F 10/17/24 15:00 Pulse 68 10/17/24 16:04 Resp 18 10/17/24 16:00 BP 97/50 10/17/24 15:00 Pulse Ox 94 10/17/24 16:00 O2 Del Method Nasal Cannula 10/17/24 16:00 O2 Flow Rate 4 10/17/24 16:00 FiO2 45 10/15/24 07:48 10/17/24 10/17/24 10/17/24 06:59 14:59 22:59 Intake Total 465 / 465 Output Total 200 / 1800 Balance -200 / -180 465 / 465 Weight last 48 hrs Weight 107.728 kg Weight 108.272 kg Physical Exam 2 Const: COMMON NORMALS: no acute distress and patient oriented x3 Resp: COMMON NORMALS: normal respiratory effort, No retractions, No use of accessory muscles and clear to auscultation bilaterally AUSCULTATION: clear to auscultation bilaterally Cardio: COMMON NORMALS: regular rate, regular rhythm, S1 normal heart sound present and S2 normal heart sound present RATE: regular rate RHYTHM: r egular rhythm HEART SOUNDS: S1 normal heart sound present and S2 normal heart sound present GI: COMMON NORMALS: Normal to inspection, nondistended, normoactive bowel sounds present and non-tender Extremity: COMMON NORMALS: no pedal edema Neuro: COMMON NORMALS: patient oriented x3 Psych: COMMON NORMALS: mental status grossly normal Urinary Catheter Management: Vuong: Cath Placed During This Visit: yes Reason for Continuing Indwelling Catheter: Accurate Measurement of Urinary Output in Critically Ill Patients Urinary Catheter Date of Insertion: 10/08/24 Urinary Catheter Time of Insertion: 12:00 Data 10/17/24 02:03 10/17/24 02:03 A&P Assessment and plan (1) Acute non-ST elevation myocardial infarction (NSTEMI): (2) Cirrhosis of liver: (3) Respiratory failure with hypoxia: (4) Pleural effusion: (5) Acute hypoxic respiratory failure: (6) Systolic CHF: (7) Congestive heart failure: (8) On mechanically assisted ventilation: (9) Mars Agitation Sedation Scale (RASS) score minus 2, light sedation: Plan Acute hypoxic hypercarbic respiratory failure - Secondary to systolic CHF exacerbation, fluid overload, pulmonary edema, bilateral pleural effusions -Possible pneumonia - Intubated in the field CT/CT angio chest w abd pel w con IMPRESSION: 1. No pulmonary embolism. 2. Large RIGHT pleural effusion with compressive atelectasis of the RIGHT lung. 3. LEFT basilar atelectasis with a very small effusion. 4. Cirrhotic liver. 5. Portosystemic collateral pathways are dilated. 6. Small amount of ascites. 7. No renal obstruction. 8. No GI tract obstruction. 9. Large amount of subcutaneous edema. - S/p extubation 521 2024 to 6 L nasal cannula, uses 4 L nasal cannula at home Plan - Currently extubated --On 4 L nasal cannula - Lasix to be resumed today 40 IV twice daily - Continue Rocephin -Incentive spirometer, flutter valve -PT OT, speech therapy eval - Full code - Lovenox for DVT prophylaxis NSTEMI cardiac echo CONCLUSIONS Severely reduced LV systolic function. Estimated LVEF severely reduced at 30%. Severe hypokinesis of mid-distal anterior, apical, anterolateral wall segments. RA and RV normal size and with normal systolic function. Mild mitral regurgitation. Normal RV and pulmonary pressures. Compared to previous echo report from 03/2023, there has been significant change with reduction of LV systolic function - Status post coronary angiography, status post PCI to LAD - Continue aspirin, Plavix Acute systolic CHF as above Liver cirrhosis - Patient denies alcoholism Full code Lovenox for DVT prophylaxis Plan for today PT OT, speech therapy eval, will moved to cardiac stepdown unit, position to p.o. Lasix, removed Vuong catheter, plan on discharging tomorrow PDMP PDMP Reviewed: Not Reviewed Attestations 2 Medical Necessity Statement*: Patient requires hospitalization for acute hypoxic respiratory failure symptoms CHF, NSTEMI, Diagnoses Acute non-ST elevation myocardial infarction (NSTEMI) I21.4 Cirrhosis of liver K74.60 Ascites presence: without ascites Hepatic cirrhosis type: unspecified hepatic cirrhosis Respiratory failure with hypoxia J96.21 Chronicity: acute on chronic Pleural effusion J90 Acute hypoxic respiratory failure J96.01 Systolic CHF I50.20 Congestive heart failure I50.9 Heart failure chronicity: acute on chronic Heart failure type: unspecified On mechanically assisted ventilation Z99.11 Mars Agitation Sedation Scale (RASS) score minus 2, light sedation Z78.9
--- NOTE | 2024-10-17 18:26 | PC.NURSE ---
patient had a nose bleed from about [id number]. Bleeding slowed and nurse added saline to patient's oxygen. Bleeding stopped at 1825.
[2024-10-17] MEDS: enoxaparin 40 mg/0.4 mL Syringe SUBCUT (20:01)
[2024-10-18] VITALS (8 sets, daily range): BP systolic 101–106; BP diastolic 47–53; PULSE 67–84; RESP 14–24; TEMP 36.6–37.1; O2SAT 90–96
[2024-10-18] MEDS: ipratropium-albuterol 3 mL Neb INHALATION ×2 (03:47→07:34)
[2024-10-18 04:30] LABS: Basophils # 0.1 10^3/uL (0.0-0.1); Basophils % 0.8 %; Eosinophils # 0.3 10^3/uL (0.0-0.8); Eosinophils % 5.2 %; Hematocrit 32.7 % (37-53); Lymphocytes # 1.7 10^3/uL (0.8-4.8); Lymphocytes % 26.4 %; Mean Platelet Volume 10.6 fL (7.4-10.4); Monocytes # 1.1 10^3/uL (0.2-0.9); Monocytes % 17.1 %; Neutrophils # 3.19 10^3/uL (1.8-7.7); Nucleated Red Blood Cells % 0 %; Platelet Count 175 10^3/cmm (157-399); Red Blood Count 3.27 10^6/uL (3.85-5.65); Red Cell Distribution Width 13.2 % (12.1-15.1); White Blood Count 6.37 10^3/uL (3.29-11.43)
[2024-10-18 04:49] LABS: Alanine Aminotransferase 22 U/L (0-41); Alkaline Phosphatase 73 U/L (40-130); Anion Gap 8.6 (5-19); Aspartate Amino Transferase 51 U/L (0-40); Blood Urea Nitrogen 22 mg/dL (8-23); Calcium 7.9 mg/dL (8.5-10.5); Carbon Dioxide 38 mmol/L (22-29); Chloride 95 mmol/L (98-107); Creatinine Clr Calc Pharmacy 131.0264; Globulin 3.1 g/dL (1.3-4.6); Glomerular Filtration Rate 113.5 mL/min (90-130); Glucose 98 mg/dL (65-115); Osmolality Calculated 289 mOsm/kg (285-295); Potassium 3.6 mmol/L (3.5-5.1); Sodium 138 mmol/L (136-145); Total Bilirubin 1.6 mg/dL (0.15-1.2); Total Protein 5.1 g/dL (6.6-8.7)
[2024-10-18 05:00] LABS: NT Pro B Type Natriuretic Pept 860 pg/mL (0-125)
[2024-10-18] MEDS: budesonide 0.5 mg/2 mL Neb INHALATION (07:33)
[2024-10-18] MEDS: sacubitril/valsartan 24-26 mg Tablet 1 EACH PO (08:34)
[2024-10-18] MEDS: thiamine 100 mg Tablet PO (08:34)
[2024-10-18] MEDS: potassium chloride ER 20 mEq Tablet PO (08:34)
[2024-10-18] MEDS: atorvastatin 40 mg Tablet NG-TUBE (08:34)
[2024-10-18] MEDS: carvedilol 6.25 mg Tablet PO (08:35)
[2024-10-18] MEDS: aspirin 81 mg Chew Tablet PO (08:35)
[2024-10-18] MEDS: neomycin-poly-bacitracin oint 28 gm 1 APPLIC TOPICAL (08:35)
[2024-10-18] MEDS: clopidogrel 75 mg Tablet PO (08:35)
[2024-10-18] MEDS: FUROsemide 40 mg Tablet PO (08:35)
--- NOTE | 2024-10-18 10:44 | P.DS_ITS ---
Discharge Providers Date of Admission: 10/08/24 15:58 Date of Discharge: October 18, 2024 Attending Provider at Admission: Bernadette Alonso MD Attending Provider at Discharge: Igor Avila MD Primary Care Provider: FELICIA Rasheed Diagnoses at Discharge Discharge Diagnosis (1) Acute non-ST elevation myocardial infarction (NSTEMI): Status: Acute (2) Cirrhosis of liver: Status: Acute Qualifiers: Ascites presence: without ascites Hepatic cirrhosis type: unspecified hepatic cirrhosis Qualified Code(s): K74.60 - Unspecified cirrhosis of liver (3) Respiratory failure with hypoxia: Status: Acute Qualifiers: Chronicity: acute on chronic Qualified Code(s): J96.21 - Acute and chronic respiratory failure with hypoxia (4) Pleural effusion: Status: Acute (5) Acute hypoxic respiratory failure: Status: Acute (6) Systolic CHF: Status: Resolved (7) Congestive heart failure: Status: Acute Qualifiers: Heart failure chronicity: acute on chronic Heart failure type: unspecified Qualified Code(s): I50.9 - Heart failure, unspecified (8) On mechanically assisted ventilation: Status: Acute (9) Mars Agitation Sedation Scale (RASS) score minus 2, light sedation: Status: Acute Reason for Visit Reason for Visit: RESP. DISTRESS Hospital Course Hospital Course This is a 64-year-old male with a past medical history of hypertension, COPD, liver cirrhosis who was intubated in the field, brought in to [facility] for shortness of breath Patient was admitted to [facility] for acute hypoxic hypercarbic respiratory failure secondary to systolic CHF, fluid overload, pulm edema, bilateral pleural effusions, concerns for pneumonia, intubated, sedated and monitored in the ICU. Patient received IV diuresis during his hospitalization, diuresed over 15 L, extubated, to 4 L nasal cannula which is his baseline, transition to p.o. Lasix, has completed his IV antibiotic therapy as inpatient. Patient will be discharged to stepdown rehab facility, discharge 40 mg of Lasix with potassium replacement therapy as outpatient, discharged with Entresto, with close follow-up with cardiology as outpatient For patient's NSTEMI, echocardiogram showed an EF of 30%, underwent coronary angiography, status post PCI to LAD, manage on aspirin, Plavix, statin. Will be discharged with aspirin, Plavix, statin, beta-mak, with a close follow-up with cardiology as outpatient. Repeat echocardiogram shows EF of 60%, grade 3/4 diastolic dysfunction. For your radiographic evidence liver cirrhosis, continue to monitor liver function, avoid alcohol, please have your primary care provider monitor LFTs, follow-up with GI Physical Exam Const: COMMON NORMALS: no acute distress and patient oriented x3 Resp: COMMON NORMALS: normal respiratory effort, No retractions, No use of accessory muscles and clear to auscultation bilaterally AUSCULTATION: clear to auscultation bilaterally Cardio: COMMON NORMALS: regular rate, regular rhythm, S1 normal heart sound present and S2 normal heart sound present RATE: regular rate RHYTHM: regular rhythm HEART SOUNDS: S1 normal heart sound present and S2 normal heart sound present GI: COMMON NORMALS: Normal to inspection, nondistended, normoactive bowel sounds present and non-tender Extremity: COMMON NORMALS: no pedal edema NARRATIVE EXTREMITY EXAM: For your rash, on your back, during 1 cm x 1 cm, maculopapular, looks like a ruptured abscess, round, continue dry dressing changes, use antibiotic ointment, continue to stay off of it Neuro: COMMON NORMALS: patient oriented x3 Psych: COMMON NORMALS: mental status grossly normal Urinary Catheter Management: Vuong: Cath Placed During This Visit: yes, but has since been removed by the nurse Reason for Continuing Indwelling Catheter: Decision to DC Catheter Urinary Catheter Date of Insertion: 10/08/24 Urinary Catheter Time of Insertion: 12:00 Date Urinary Catheter Removed: 10/17/24 Time Urinary Catheter Discontinued: 13:00 Discharge Data Studies Completed and Pending Completed Studies During Hospitalization Category Date Time Status CT Angio Chest + Abdomen Pelvis w/ contrast; 48866 + Cat Scan 10/08/24 13:57 Completed 64162 Stat XR chest 1V portable 88219 AM LABS Exams 10/11/24 04:00 Completed XR chest 1V portable [id number] Routine Exams 10/13/24 07:00 Completed XR chest 1V portable [id number] Stat Exams 10/08/24 11:47 Completed CV. echo complete* [id number] Routine Ultrasound 10/08/24 15:41 Completed CV. echo limited [id number] Routine Ultrasound 10/14/24 07:52 Completed Pending at discharge Category Date Time Status [employer] request for service Routine Exams 10/11/24 09:17 Taken Radiology Impressions Chest/Abdomen/Pelvis CT 10/08/24 13:57 IMPRESSION: 1. No pulmonary embolism. 2. Large RIGHT pleural effusion with compressive atelectasis of the RIGHT lung. 3. LEFT basilar atelectasis with a very small effusion. 4. Cirrhotic liver. 5. Portosystemic collateral pathways are dilated. 6. Small amount of ascites. 7. No renal obstruction. 8. No GI tract obstruction. 9. Large amount of subcutaneous edema. Chest X-Ray 10/13/24 07:00 IMPRESSION: 1. Stable [id number] right pleural effusion. 2. Stable probable interstitial edema. 3. Stable right basilar infiltrate or compressive atelectasis. Laboratory Results WBC 6.37 10^3/uL (3.29-11.43) 10/18/24 04:03 RBC 3.27 10^6/uL (3.85-5.65) L 10/18/24 04:03 Hgb 10.80 g/dL (11.27-16.99) L 10/18/24 04:03 Hct 32.7 % (37-53) L 10/18/24 04:03 MCV 100.0 fl (82-101) 10/18/24 04:03 MCH 33.0 pg (27-33) 10/18/24 04:03 MCHC 33.0 g/dL (30-55) 10/18/24 04:03 RDW 13.2 % (12.1-15.1) 10/18/24 04:03 Plt Count 175 10^3/cmm (157-399) 10/18/24 04:03 MPV 10.6 fL (7.4-10.4) H 10/18/24 04:03 Neut % (Auto) 50.0 % 10/18/24 04:03 Lymph % (Auto) 26.4 % 10/18/24 04:03 [place] % (Auto) 17.1 % 10/18/24 04:03 Eos % (Auto) 5.2 % 10/18/24 04:03 Baso % (Auto) 0.8 % 10/18/24 04:03 Neut # (Auto) 3.19 10^3/uL (1.8-7.7) 10/18/24 04:03 Lymph # (Auto) 1.7 10^3/uL (0.8-4.8) 10/18/24 04:03 [place] # (Auto) 1.1 10^3/uL (0.2-0.9) H 10/18/24 04:03 Eos # (Auto) 0.3 10^3/uL (0.0-0.8) 10/18/24 04:03 Baso # (Auto) 0.1 10^3/uL (0.0-0.1) 10/18/24 04:03 Nucleated RBC % (auto) 0 % 10/18/24 04:03 Total Counted 100 (0-100) 10/09/24 01:57 Atypical Lymphs % 0.0 % (0-5) 10/09/24 01:57 Absolute Neutrophils 6.6 10^3/cmm (1.4-6.5) H 10/09/24 01:57 Segmented Neutrophils 69 % 10/09/24 01:57 Band Neutrophils 6.0 % 10/09/24 01:57 Absolute Lymphocytes 1.4 10^3/cmm (1.2-3.4) 10/09/24 01:57 Lymphocytes (Manual) 16 % 10/09/24 01:57 Monocytes (Manual) 1.0 % 10/09/24 01:57 Absolute Monocytes 0.1 10^3/cmm (0.1-0.6) 10/09/24 01:57 Eosinophils (Manual) 0 % 10/09/24 01:57 Absolute Eosinophils 0.0 10^3/cmm (0.0-0.7) 10/09/24 01:57 Basophils (Manual) 0.0 % 10/09/24 01:57 Absolute Basophils 0.0 10^3/cmm (0.0-0.2) 10/09/24 01:57 Metamyelocytes 2.0 % 10/09/24 01:57 Myelocytes 5.0 % 10/09/24 01:57 Promyelocytes 1.0 % 10/09/24 01:57 Nucleated RBCs # 0.0 /100WBC 10/18/24 04:03 Platelet Estimate Normal (Normal) 10/09/24 01:57 PT 16.10 SECONDS (12.1-14.9) H 10/11/24 06:36 INR 1.21 (0.8-1.2) H 10/11/24 06:36 APTT 23.2 SECONDS (23.9-36.7) L D 10/11/24 15:55 Specimen Type Arterial 10/13/24 03:29 Sample Site Radial, right 10/13/24 03:29 ABG pH 7.45 (7.35-7.45) 10/13/24 03:29 ABG pCO2 63.6 mmHg (35-45) H* 10/13/24 03:29 ABG pO2 71.6 mmHg (80.0-100.0) L 10/13/24 03:29 ABG PO2/FiO2 Ratio 143 10/13/24 03:29 ABG HCO3 43.8 mmol/L (22-26) H 10/13/24 03:29 ABG O2 Saturation 96.6 10/08/24 13:25 ABG Base Excess 17.1 mmol/L (-2.0-2.0) H 10/13/24 03:29 Nikko Test Pos 10/13/24 03:29 A-a O2 Gradient 46.4 mmHg (5-10) H 10/08/24 13:25 Hematocrit 31.6 % (42-52) L 10/13/24 03:29 Hgb O2 Saturation 94.7 % (95-100) L 10/08/24 13:25 Carboxyhemoglobin 1.4 %THgb (0.4-20.1) 10/08/24 13:25 Methemoglobin 0.5 % (0.4-1.5) 10/08/24 13:25 Total Hemoglobin 12.1 g/dL (14-18) L 10/08/24 13:25 Sodium 139.0 mmol/L (131-143) 10/08/24 13:25 Potassium 3.8 mmol/L (3.5-5.0) 10/08/24 13:25 Glucose 132.0 mg/dL (70-115) H 10/08/24 13:25 Ionized Calcium 1.3 mmol/L (1.1-1.4) 10/08/24 13:25 O2 Delivery Device Vent 10/13/24 03:29 FiO2 50.0 % 10/13/24 03:29 Tidal Volume 0.50 10/12/24 04:31 PEEP 8.0 cmH20 10/12/24 04:31 CPAP 5.0 cmH20 10/13/24 03:29 Psychiatric Np ID Darrian 10/13/24 03:29 Sodium 138 mmol/L (136-145) 10/18/24 04:03 Potassium 3.6 mmol/L (3.5-5.1) 10/18/24 04:03 Chloride 95 mmol/L (98-107) L 10/18/24 04:03 Carbon Dioxide 38 mmol/L (22-29) H 10/18/24 04:03 Anion Gap 8.6 (5-19) 10/18/24 04:03 BUN 22 mg/dL (8-23) 10/18/24 04:03 Creatinine 0.7 mg/dL (0.7-1.2) 10/18/24 04:03 GFR Calculation 113.5 mL/min (90-130) 10/18/24 04:03 Glucose 98 mg/dL (65-115) 10/18/24 04:03 POC Glucose 117 mg/dL (70-110) H 10/15/24 11:46 Calculated Osmolality 289 mOsm/kg (285-295) 10/18/24 04:03 Lactic Acid 1.7 mmol/L (0.5-2.2) 10/08/24 11:57 Calcium 7.9 mg/dL (8.5-10.5) L 10/18/24 04:03 Phosphorus 2.7 mg/dL (2.5-4.5) 10/15/24 03:35 Magnesium 1.7 mg/dL (1.7-2.3) 10/15/24 03:35 Total Bilirubin 1.6 mg/dL (0.15-1.2) H 10/18/24 04:03 AST 51 U/L (0-40) H 10/18/24 04:03 ALT 22 U/L (0-41) 10/18/24 04:03 Alkaline Phosphatase 73 U/L (40-130) 10/18/24 04:03 Troponin T Baseline 36 ng/L (0-15) H 10/08/24 11:57 Troponin T 120 Minute 116.6 ng/L (0-15) H 10/08/24 13:26 Delta Troponin T 80.6 ABS# (0-10) H* 10/08/24 13:26 Troponin T Hi Sens 6Hr 227.4 ng/L (0-15) H 10/08/24 17:44 Troponin T Hi Sens 6Hr Delta 191.4 ng/L (0-12) H* 10/08/24 17:44 C-Reactive Protein 40.6 mg/L (0.0-4.9) H 10/15/24 03:35 NT-Pro-B Natriuret Pep 860 pg/mL (0-125) H 10/18/24 04:03 Total Protein 5.1 g/dL (6.6-8.7) L 10/18/24 04:03 Albumin 2.0 g/dL (3.5-5.2) L 10/18/24 04:03 Globulin 3.1 g/dL (1.3-4.6) 10/18/24 04:03 Vitamin B12 1319 pg/mL (232-1245) H 10/13/24 17:43 Folate 5.7 ng/mL (4.5-32.2) 10/13/24 17:43 Procalcitonin 0.13 ng/mL (0-0.5) 10/15/24 03:35 Urine Color Yellow (Yellow) 10/08/24 12:05 Urine Appearance Cloudy (CLEAR) A 10/08/24 12:05 Urine pH 5.5 (5-7) 10/08/24 12:05 Ur Specific [place] 1.022 (1.005-1.030) 10/08/24 12:05 Urine Protein 3+ (Negative) A 10/08/24 12:05 Urine Glucose (UA) Trace (Normal) H 10/08/24 12:05 Urine Ketones Negative (Negative) 10/08/24 12:05 Urine Blood 2+ (Negative) A 10/08/24 12:05 Urine Nitrate Negative (Negative) 10/08/24 12:05 Urine Bilirubin Negative (Negative) 10/08/24 12:05 Urine Urobilinogen 1.0 mg/dL (Negative) 10/08/24 12:05 Ur Leukocyte Esterase Negative (Negative) 10/08/24 12:05 Urine RBC 11-20 /hpf (0-2) H 10/08/24 12:05 Urine WBC 11-20 /hpf (0-5) H 10/08/24 12:05 Ur Squamous Epith Cells 6-10 /hpf (0-5) 10/08/24 12:05 Amorphous Sediment Not Reportable 10/08/24 12:05 Urine Bacteria 1+ /hpf (NONE) H 10/08/24 12:05 Hyaline Casts 34.33 /lpf 10/08/24 12:05 Fine Granular Casts 0-4 /lpf H 10/08/24 12:05 Coarse Granular Casts 5-10 /lpf H 10/08/24 12:05 Hepatitis A IgM Ab Non-reactive (Nonreactive) 10/13/24 17:43 Hep Bs Antigen Non-reactive (Nonreactive) 10/13/24 17:43 Hep B Core IgM Ab Non-reactive (Nonreactive) 10/13/24 17:43 Hepatitis C Antibody Non-reactive (Nonreactive) 10/13/24 17:43 HIV 1&2 Ab & HIV 1 Ag Non-reactive (Non-Reactiv) 10/13/24 17:43 HIV 1&2 Antibody Non-reactive (Non-Reactiv) 10/13/24 17:43 Vitals Last Vital Signs Temp 98.7 F 10/18/24 07:00 Pulse 71 10/18/24 07:40 Resp 18 10/18/24 07:34 BP 104/53 10/18/24 07:00 Pulse Ox 96 10/18/24 07:34 O2 Del Method Nasal Cannula 10/18/24 07:34 O2 Flow Rate 4 10/18/24 07:34 FiO2 45 10/15/24 07:48 Discharge Plan Discharge Patient Disposition: Xfer Short-Term Hosp Condition: Stable Prescriptions: New nitroglycerin 0.4 mg Tablet, Sublingual 0.4 mg sublingual Q5M PRN (Reason: Chest Pain) 30 Days Qty: 30 0RF aspirin 81 mg Tablet,Chewable 81 mg PO DAILY 30 Days Qty: 30 0RF potassium chloride [Klor-Con M20] 20 mEq Tablet,Er Particles/Crystals 20 meq PO DAILY 30 Days Qty: 30 0RF atorvastatin 40 mg Tablet 40 mg PO DAILY 30 Days Qty: 30 0RF Triple Antibiotic 3.5mg-400 unit- 5,000 unit/gram Ointment 1 applic topical BID 30 Days Qty: 14 0RF clopidogrel 75 mg Tablet 75 mg PO DAILY 30 Days Qty: 30 0RF Entresto 24-26 mg Tablet 1 tab PO BID 30 Days Qty: 60 0RF furosemide 40 mg Tablet 40 mg PO DAILY@0800 30 Days Qty: 30 0RF Continued carvedilol 6.25 mg tablet 6.25 mg PO BIDWM albuterol sulfate 90 mcg/actuation HFA aerosol inhaler 2 puff INHALATION Q6H Dulera 200-5 mcg/actuation HFA aerosol inhaler 2 puff INHALATION BID ipratropium-albuterol 0.5 mg-3 mg(2.5 mg base)/3 mL Solution For Nebulization 3 ml INHALATION QID PRN (Reason: Shortness Of Breath) Discontinued lisinopril 20 mg tablet 20 mg PO DAILY Discharge Orders: Discharge Order (Routine); Ordered 10/18/24 Ordered By: Igor Avila Referrals: Marcus Banks MD [Referring, Internal Medicine] - 1 month Referral Note: liver Honey Swift MD [Physician, Cardiology] - 1 week Uday Llamas FNP [Primary Care Provider] Discharge Diet: Cardiac Discharge Activity: Resume usual activity Patient Instructions: Nitroglycerin (By mouth), Furosemide (By mouth) (Lasix), Potassium Chloride (By mouth) (K-Dur, K-Mirlande, K-Tab, Reggie Mur), Aspirin (By mouth), Atorvastatin (By mouth) (Lipitor, Atorvaliq), Clopidogrel (By mouth) (Plavix), Sacubitril/Valsartan (By mouth) (Entresto, Entresto Sprinkle), Coronary Angioplasty (DC), Pleural Effusion (DC), Opioid Safety, Post Angiogram Home Care Instructions Activity Restrictions/Additional Instructions: - Please recheck BMP in 24 hours -monitor creatinine and potassium -if any recurrent chest pain go to emergency room -monitor liver function, follow up with gi in 1 month or liver cirrhosis, avoid alcohol Discharge Attestations 2 Time Spent in Discharge Care*: greater than 30 min Quality Metrics Clinical Quality Measures [ Acute Myocardial Infaction { Clinical Trial Participant: No; Contraindication to aspirin: None; Aspirin prescribed; Contraindication to statin: None; Statin prescribed; Contraindication to PCI: None; PCI performed;}. No reported AMI, CVA or VTE this stay] Coding Level of Care Code 46041 Total time (in minutes) for Discharge: 45 Diagnoses Acute non-ST elevation myocardial infarction (NSTEMI) I21.4 Cirrhosis of liver K74.60 Ascites presence: without ascites Hepatic cirrhosis type: unspecified hepatic cirrhosis Respiratory failure with hypoxia J96.21 Chronicity: acute on chronic Pleural effusion J90 Acute hypoxic respiratory failure J96.01 Systolic CHF I50.20 Congestive heart failure I50.9 Heart failure chronicity: acute on chronic Heart failure type: unspecified On mechanically assisted ventilation Z99.11 Mars Agitation Sedation Scale (RASS) score minus 2, light sedation Z78.9
--- NOTE | 2024-10-18 12:30 | PC.OT ---
OT TREATMENT HELD DUE TO SCHEDULED PATIENT D/C TODAY
--- NOTE | 2024-10-18 13:30 | PC.NURSE ---
ambulance staff called at 1330 for a ride for patient to [facility]. Bernard at [facility] said patient would be picked up after a truck got back from [place].
--- NOTE | 2024-10-18 14:25 | P.PN_ITS ---
Subjective 2 Subjective: Patient denies any complaint he is walking around he is excited about going to rehab in [facility] where insurance can cover Medications: Reviewed: Yes Medication Review Details: Detail medication reviewed. Vitals/I&O/Wt Last Vital Signs Temp 98.3 F 10/18/24 12:00 Pulse 84 10/18/24 12:00 Resp 24 H 10/18/24 12:00 BP 106/49 10/18/24 12:00 Pulse Ox 90 10/18/24 12:00 O2 Del Method Nasal Cannula 10/18/24 12:00 O2 Flow Rate 4 10/18/24 12:00 FiO2 45 10/15/24 07:48 10/17/24 10/18/24 10/18/24 22:59 06:59 14:59 Intake Total 240 / 240 Output Total 200 / 200 Balance -200 / 265 240 / 240 Weight last 48 hrs Weight 239 lb 3.2 oz Weight 237 lb 8 oz Physical Exam 2 Const: OTHER: GENERAL: Patient is alert, awake and oriented x3. HEART: Regular S1 and S2. No murmur, rub or gallop. LUNGS: Clear to auscultate bilaterally. CENTRAL NERVOUS SYSTEM: Grossly nonfocal. EXTREMITIES: Lower extremities with out edema bilaterally. Urinary Catheter Management: Vuong: Cath Placed During This Visit: yes, but has since been removed by the nurse Reason for Continuing Indwelling Catheter: Decision to DC Catheter Urinary Catheter Date of Insertion: 10/08/24 Urinary Catheter Time of Insertion: 12:00 Date Urinary Catheter Removed: 10/17/24 Time Urinary Catheter Discontinued: 13:00 Data 10/18/24 04:03 10/18/24 04:03 A&P Assessment and plan (1) Acute non-ST elevation myocardial infarction (NSTEMI): (2) Congestive heart failure: Plan Continue aspirin statin beta-mak and Entresto Left ventricular ejection fraction has improved Continue Lasix in the form of 40 mg p.o. once a day Patient is advised to continue dual antiplatelet therapy for at least 1 year will decide after further extension Patient will be transferred to cardiac rehab PDMP PDMP Reviewed: Not Reviewed Attestations 2 Medical Necessity Statement*: Awaiting transfer to the cardiac rehab Coding Level of Care Code Acute Code for [facility] Diagnoses Acute non-ST elevation myocardial infarction (NSTEMI) I21.4 Congestive heart failure I50.9 Heart failure chronicity: acute on chronic Heart failure type: unspecified
== END 2024-10-18 15:09 | disposition home or self-care (01) | DRG 321 ==
LOC: ER 15:58 → ER IP 16:36 → ICU 18:28 → CSU 10-16 16:05
PROVIDERS: Internal Medicine; Nurse Practitioner Family; Admitting Provider Student in an Organized Health Care Education/Training Program; Emergency Provider General Practice; PCP Nurse Practitioner Family; Visit Provider Family Medicine
PROC: 027034Z Dilation of Coronary Artery, One Artery with Drug-eluting Intraluminal Device, Percutaneous Approach (ICD-10-PCS; principal; 2024-10-11 09:30)
PROC: 027034Z Dilation of Coronary Artery, One Artery with Drug-eluting Intraluminal Device, Percutaneous Approach (ICD-10-PCS; 2024-10-11 09:30)
DX: I21.4 Non-ST elevation (NSTEMI) myocardial infarction (principal); I50.23 Acute on chronic systolic (congestive) heart failure; J96.22 Acute and chronic respiratory failure with hypercapnia; J96.21 Acute and chronic respiratory failure with hypoxia; J18.9 Pneumonia, unspecified organism; J44.0 Chronic obstructive pulmonary disease with (acute) lower respiratory infection; K74.60 Unspecified cirrhosis of liver; I11.0 Hypertensive heart disease with heart failure; I87.2 Venous insufficiency (chronic) (peripheral); Z99.81 Dependence on supplemental oxygen
CPT/HCPCS: 36415; 36416; 36600; 51702; 71045; 71275; 74177; 80051; 80053; 80074; 81001; 82330; 82607; 82746; 82803; 82805; 82962; 83605; 83735; 83880; 84100; 84145; 84484; 85007; 85025; 85347; 85610; 85730; 86140; 87040; 87070; 87086; 87205; 87806; 92507; 92523; 92526; 92610; 93005; 93306; 93308; 93458; 94002; 94003; 94640; 94660; 94762; 94799; 96365; 96366; 96367; 96372; 96374; 96375; 96376; 97110; 97116; 97163; 97167; 97530; 97535; 99291; C1725; C1769; C1874; C1887; C1894; C9600; J0696; J1610; J1644; J1650; J1938; J2704; J3010; J3480; J7030; J7626; J7799; J9999; Q9967

== ENCOUNTER → 2025-04-19 13:26 | Outpatient (BNVA) | payer MEDICARE, MEDICAID, SELFPAY | PROVIDERS: PCP Nurse Practitioner Family; Visit Provider Internal Medicine | DX: I25.10 Atherosclerotic heart disease of native coronary artery without angina pectoris (principal) | CPT/HCPCS: 99213 ==